=== PATIENT | male | born 1970 | race Caucasian/White ===

== ENCOUNTER 2020-02-04 15:40 | Emergency (ER) | payer OTHER, SELFPAY ==
--- NOTE | 2020-02-04 15:38 | ECG_ITS ---
APPROVED REPORT Exam: Resting ECG HR:78 bpm ECG Measurements Heart Rate 78 AXES IA 164 P 64 QRSd 102 QRS 53 QT 360 T 56 QTc 410 Conclusion Normal sinus rhythm Normal ECG Electronically signed by : Jc Al, 02/06/2020 21:50:47
[2020-02-04 15:41] VITALS: BP 151/99; PULSE 77; RESP 16; TEMP 36.7; O2SAT 98; BMI 23.0
--- NOTE | 2020-02-04 15:51 | HMH.EDCP ---
ED Disposition Clinical Impression: Atypical chest pain, Vertigo Disposition: Home, Self-Care Condition on Discharge: Good Additional Instructions: On further review patient reports chest pain began yesterday. However he is more certain about his dizziness. Upon further questioning patient does report dizziness with head turning vertically to the right as well as extension of the neck. He has had no further chest pain and has cardiac work-up is otherwise negative we will treat him for BPPV with meclizine have him follow-up with his PCP for further cardiac work-up as needed. Prescriptions: Meclizine HCl [Meclizine 25mg Tab] 25 mg PO Q8HP PRN #30 tab PRN Reason: dizziness/vertigo Prescription Printed - Critical Care Critical Care Time: No Attestation: On , the high probability of a clinically significant, sudden or life threatening deterioration of the following system(s) required my full and direct attention, intervention and personal management. The time I documented below is in addition to time spent performing reported procedures but includes the following listed in this critical care notation. Medical Decision Making - Medical Records Medical records reviewed: Yes: I reviewed the patient's medical records. - Hiro Inquiry Pt receiving controlled substance: No Vital Signs: 02/04/20 15:41 02/04/20 15:57 02/04/20 16:01 Temperature 98.1 F Temperature Source Oral Pulse Rate [Orthostatic Lying Left Radial] 82 Pulse Rate [Orthostatic Sitting Left Radial] 82 Pulse Rate [Orthostatic Standing Left Radial] 99 H Pulse Rate [Radial] 77 81 Respiratory Rate 16 20 Blood Pressure [Orthostatic Lying Left Arm] 122/82 Blood Pressure [Orthostatic Sitting Left Arm] 130/91 H Blood Pressure [Orthostatic Standing Left Arm] 134/81 Blood Pressure [Right Arm] 151/99 H 122/82 Blood Pressure Mean [Right Arm] 116 95 Blood Pressure Source [Right Arm] Automatic Cuff Blood Pressure Position [Right Arm] Sitting Sitting 02 Sat by Pulse Oximetry 98 93 L Oxygen Delivery Method Room Air - Lab Data Lab results reviewed: Yes: I reviewed the patient's lab results. Lab Results 02/04/20 15:40: WBC 5.7, RBC 4.26 L, Hgb 14.2, Hct 43.7, MCV 102.5 H, MCH 33.3 H, MCHC 32.5, RDW 12.1, Plt Count 209, MPV 7.0 L, Neut % (Auto) 55.7, Lymph % (Auto) 33.3, [place] % (Auto) 4.9, Eos % (Auto) 4.2, Baso % (Auto) 1.8, Neut # (Auto) 3.2, Lymph # (Auto) 1.9, [place] # (Auto) 0.3, Eos # (Auto) 0.2, Baso # (Auto) 0.1 02/04/20 15:40: Sodium 137, Potassium 4.0, Chloride 100, Carbon Dioxide 24, Anion Gap 17.0 H, BUN 8 L, Creatinine 0.60 L, Estimated Creat Clear 139, Estimated GFR 143, Est GFR ( Amer) 173, Glucose 100, Calcium 9.2, Troponin I < 0.01 02/04/20 15:40: SARS-CoV-2 IgG Ab (Rapid) Negative, SARS-CoV-2 IgM Ab (Rapid) Negative Result diagrams: 02/04/20 15:40 02/04/20 15:40 Orders (Tests/Meds): ED MEDICATIONS Generic Name Dose Route Start Last Admin Trade Name Freq PRN Reason Stop Dose Admin Meclizine HCl 25 mg 02/04/20 16:31 Meclizine 25mg Tablet PO 02/04/20 16:32 ONCE ONE Discontinued Medications Generic Name Dose Route Start Last Admin Trade Name Freq PRN Reason Stop Dose Admin Aspirin 324 mg 02/04/20 16:02 02/04/20 16:04 Aspirin 81mg Chewable Tablet PO 02/04/20 16:03 324 mg ONCE ONE Administration ORDERS Category Date Time Status XR chest portable Stat Exams 02/04/20 15:52 Taken Troponin I Q3H Lab 02/04/20 19:00 Ordered Troponin I Q3H Lab 02/04/20 22:00 Ordered - Radiology Data #1 Image(s): Chest Image Reviewed: Yes I reviewed the patient's radiology image Preliminary Findings: Normal/NAD - ECG Data Tracing #1 ECG initial impression time: 14:39 ECG normal with no acute: arrhythmias, ischemia, conduction abnormalities, chamber hypertrophy Normal Sinus Rhythm: Yes Chest Pain HPI - General Chief Complaint: Chest Pain Stated Complaint: Chest pain Ti
--- NOTE | 2020-02-04 15:52 | XR_ITS ---
PROCEDURE: XR CHEST PORTABLE CLINICAL HISTORY: CHEST PAIN COMPARISON: No exams were available for comparison FINDINGS: The cardiomediastinal silhouette and pulmonary vascularity are within normal limits. The lungs are clear without infiltrates, suspicious nodules, or pleural effusions. There monitor lines overlying the chest No acute bony abnormalities. IMPRESSION: No acute findings. Dictated by: Dr. Neil Goldstein MD 02/04/2020 17:00 Dr. Neil Goldstein MD in [place] 02/04/2020 17:00
[2020-02-04 15:57] VITALS: BP 122/82; PULSE 81; RESP 20; O2SAT 93
[2020-02-04 16:01] VITALS: BP 122/82; BP 130/91; BP 134/81; PULSE 82; PULSE 99
[2020-02-04 16:01] LABS: Basophils # 0.1 K/mm3 (0-0.2); Basophils % 1.8 % (0.1-2.0); Eosinophils # 0.2 K/mm3 (0.0-0.4); Eosinophils % 4.2 % (0.1-12.0); Hematocrit 43.7 % (42.0-52.0); Hemoglobin 14.2 g/dL (14.1-18.0); Lymphocytes # 1.9 K/mm3 (0.7-4.5); Lymphocytes % 33.3 % (10-50); Mean Corpuscular HGB Conc 32.5 g/dL (31.8-35.4); Mean Corpuscular Hemoglobin 33.3 pg (27.0-31.2); Mean Corpuscular Volume 102.5 fl (80-94); Monocytes # 0.3 K/mm3 (0.1-1.0); Monocytes % 4.9 % (1.7-9.3); Neutrophils # 3.2 K/mm3 (1.8-7.8); Neutrophils % 55.7 % (37.0-80.0); Platelet Count 209 K/mm3 (142-424); Red Blood Count 4.26 M/mm3 (4.60-6.20); Red Cell Distribution Width 12.1 % (11.5-17.5); White Blood Count 5.7 K/mm3 (4.8-10.8)
[2020-02-04 16:05] LABS: Blood Urea Nitrogen 8 mg/dl (9-20); Calcium 9.2 mg/dl (8.4-10.2); Carbon Dioxide 24 mmol/L (22.0-30.0); Chloride 100 mmol/L (98-107); Creatinine Clearance Estimated 139 mL/min (50-200); Estimated Glomerular Filt Rate 143 ml/min (>60); GFR (African American) 173 ML/MIN (>60); Glucose 100 mg/dl (74-100); Sodium 137 mmol/L (136-145)
[2020-02-04 16:17] LABS: Troponin I < 0.01 ng/ml (0.00-0.034)
[2020-02-04 16:23] LABS: Coronavirus 19 IgG Antibody Negative (Negative); Coronavirus 19 IgM Antibody Negative (Negative)
[2020-02-04 16:44] VITALS: BP 125/65; PULSE 78; RESP 16; TEMP 36.6; O2SAT 96
== END 2020-02-04 16:46 | disposition home or self-care (01) ==
LOC: ER 16:36
PROVIDERS: Emergency Provider Emergency Medicine
DX: R07.89 Other chest pain (principal); R42 Dizziness and giddiness; I10 Essential (primary) hypertension; F17.210 Nicotine dependence, cigarettes, uncomplicated
CPT/HCPCS: 71045; 80048; 84484; 85025; 86328; 93005; 99283

== ENCOUNTER 2023-12-20 19:45 | Inpatient (IN) | payer OTHER, SELFPAY ==
--- NOTE | 2023-12-20 20:19 | EXP.HP ---
History of Present Illness *Admission Date: 12/20/23 *Reason for visit:: chest pain *History of present illness: Mr. Mercedes is a pleasant 53-year-old male with history of CABG a year ago and previous MIs necessitating stenting (6 stents prior to CABG). He presented to [facility] on Thursday due to onset of chest pain. Concern for NSTEMI at that time. Troponin was initially 80, elevated to 123 with gradual decrease back down to 89. Stress test was performed at [facility] which showed small foci of ischemia. Due to lack of interventional cardiology, [facility] was consulted for transfer for interventional cardiology and definitive management. Patient was initiated on aspirin and Plavix. States has been having some intermittent chest pain since admission. EKG is not showing any ischemic changes or ST elevations. Medically managed with aspirin, Plavix, Lovenox. Transferred this evening for further care. Of note, occasionally will use cocaine. Last use within the past week. Also drinks regularly. Last drink evening. No signs of withdrawal. On time of arrival, he stable on room air. Denies any nausea or vomiting. No confusion or weakness. No active chest pain at this moment. [facility] Disclaimer: The information contained in this section may have been updated after the patient was seen, as this information can be updated by other users. Medical History Hypertension COPD (chronic obstructive pulmonary disease) Surgical History History of right heart catheterization (RHC) Social History Smoking Status: Current every day smoker tobacco type: cigarettes packs per day: 1 alcohol intake: current alcohol intake frequency: 3 or more drinks per day current occupational status: employed and other Travel in the last 8 weeks: None household members: other housing: other Other Medical History Have you received the Flu Vaccine for this season: No Have you received the Pneumonia Vaccine: No Review of Systems Review of Systems Review of systems (narrative): 14 point review of systems performed, pertinent positives and negatives as per HPI Meds Home Medications and Allergies Home Medications ?Medication ?Instructions ?Recorded ?Confirmed ?Type fluticasone fur. 100 mcg-umeclid 1 ea inhalation DAILY 12/20/23 12/20/23 History 62.5 mcg-vilant 25 mcg inhalat.powder (Trelegy Ellipta) losartan 100 1 tab PO DAILY 12/20/23 12/20/23 History mg-hydrochlorothiazide 12.5 mg tablet metoprolol succinate 25 mg 25 mg PO DAILY 12/20/23 12/20/23 History tablet,extended release 24 hr montelukast 10 mg tablet 10 mg PO DAILY 12/20/23 12/20/23 History New Prescriptions to Start Prescriptions: Allergies Allergy/AdvReac Type Severity Reaction Status Date / Time strawberry AdvReac Verified 02/04/20 15:49 Exam Constitutional Constitutional: no acute distress, average body habitus and cooperative *Routine HEENT Exam Head: Present normocephalic Eye: Present EOMI and PERRL ENT: Present mucous membranes moist *Routine Neck Exam Neck: Present supple; Absent lymphadenopathy Routine Chest/Breast/Axilla Exam Comments: Well-healed sternotomy scar *Routine Respiratory Exam Respiratory: Present CTA bilaterally; Absent rhonchi, wheezes or crackles *Routine Cardiovascular Exam Cardiovascular: Present RRR *Routine Abdominal Exam Abdominal: Present soft and normoactive bowel sounds; Absent tenderness *Routine Rectal Exam Rectal:: deferred *Routine Genitalia Exam Genitalia:: deferred *Routine Extremities Exam Extremities: Absent cyanosis, clubbing or edema Comments: Absent right upper arm, defect per report *Routine Skin Exam Skin: Present warm; Absent rash *Routine Neurological Exam Neurological: Present alert, oriented X3 and moving all extremities; Absent altered mental status Assessment and Plan *Assessment and plan (1) NSTEMI (non-ST elevated myocardial infarction): Status: Acute Category: Medical Code(s): I21.4 - Non-ST elevation (NSTEMI) myocardial infarction (2) CAD (coronary artery disease): Status: Acute Category: Medical Code(s): I25.10 - Atherosclerotic heart disease of [place] coronary artery without angina pectoris (3) Hx of CABG: Status: Acute Category: Surgical Code(s): Z95.1 - Presence of aortocoronary bypass graft (4) Alcohol dependence: Status: Acute Category: Medical Code(s): F10.20 - Alcohol dependence, uncomplicated (5) COPD (chronic obstructive pulmonary disease): Status: Acute Category: Medical Code(s): J44.9 - Chronic obstructive pulmonary disease, unspecified (6) History of cocaine use: Status: Acute Category: Medical Code(s): F14.91 - Cocaine use, unspecified, in remission Plan Mr. Mercedes a 53-year-old male with significant CAD, history of CABG a year ago, COPD, who presented with atypical chest pain and concern for NSTEMI to [facility] on Thursday. Case discussed with hospitalist from [facility], request transfer for definitive management of NSTEMI as they do not have interventional cardiology and patient had ischemic defect noted on stress test. Medicine agreed to admit for further management. Cardiology consulted for the morning. Problems addressed as follows: NSTEMI CAD History of CABG ([place]) -Patient on ALIZA inhibitor, HCTZ, metoprolol, daily aspirin only. Will continue aspirin 81 mg daily and Plavix 75 mg daily. Loaded with aspirin 324 and Plavix 300 mg on Thursday. Receiving Lovenox 1 mg/kg twice daily for anticoagulation. Will administer 1 more dose this evening, and hold in the morning pending heart cath and heparinization in the [facility]. - Reviewed patient's labs from [facility]. High-sensitivity troponin of 88. Kidney function normal with creatinine 0.8, BUN 12. LDL cholesterol elevated at 151. Troponin showed gradual increase to 123, have trended back down to 89. TSH normal at 1.34. White count normal at 5, hemoglobin 13. No signs of anemia. - EKG personally reviewed, presence of right bundle branch block. No signs of ischemia -Echo ordered for the morning -Further management pending cardiology evaluation. Monitor on continuous telemetry. -Resume metoprolol succinate 25 mg daily, re-evaluate daily need for ALIZA inhibitor versus ARB or ARNI - Kidney function normal with BUN 13, creatinine 0.8. Initial troponin here less than 0.01 Substance dependence Alcohol use disorder - UDS positive for cocaine and opiates at outside hospital. Alcohol level negative. States he drinks regularly, 6-12 beers a day with bourbon intermittently. No signs of withdrawal over the past 2 days but has been given Ativan regularly. States he does not have withdrawal symptoms and or never has. Will monitor with CIWA protocol. Ativan if needed and symptomatic. History of tobacco use disorder: Reports he currently vapes. History of COPD: Continue Trelegy 100 inhaler once daily. Stable on room air. Does not appear to be in exacerbation; continue Singulair 10 mg daily Full code Cardiac diet, n.p.o. at midnight Therapeutic Lovenox
[2023-12-20 20:32] VITALS: BMI 26.2
[2023-12-20 21:48] LABS: Basophils % 0.5 % (0.1-2.0); Eosinophils # 0.1 K/mm3 (0.0-0.4); Eosinophils % 2.8 % (0.1-12.0); Hematocrit 34.6 % (42.0-52.0); Hemoglobin 11.8 g/dL (14.1-18.0); Lymphocytes # 0.8 K/mm3 (0.7-4.5); Mean Corpuscular HGB Conc 34.1 g/dL (31.8-35.4); Mean Corpuscular Hemoglobin 34.1 pg (27.0-31.2); Mean Corpuscular Volume 99.9 fl (80-94); Monocytes # 0.3 K/mm3 (0.1-1.0); Monocytes % 5.7 % (1.7-9.3); Neutrophils # 3.3 K/mm3 (1.8-7.8); Platelet Count 141 K/mm3 (142-424); Red Blood Count 3.46 M/mm3 (4.60-6.20); Red Cell Distribution Width 13.2 % (11.5-17.5); White Blood Count 4.5 K/mm3 (4.8-10.8)
[2023-12-20 22:15] LABS: Alanine Aminotransferase 33 U/L (12-78); Albumin Level 3.5 g/dl (3.5-5.0); Albumin/Globulin Ratio 1.5 (1.1-1.8); Alkaline Phosphatase 37 U/L (38-126); Anion Gap 9.4 mEq/L (5-15); Aspartate Amino Transferase 41 U/L (17-59); Bilirubin,Total 0.4 mg/dl (0.2-1.3); Blood Urea Nitrogen 13 mg/dl (9-20); Calcium 8.7 mg/dl (8.4-10.2); Carbon Dioxide 24 mmol/L (22.0-30.0); Chloride 105 mmol/L (98-107); Creatinine Clearance Estimated 113 mL/min (50-200); Estimated Glomerular Filt Rate 101 ml/min (>60); GFR (African American) 122 ML/MIN (>60); Globulin 2.4 g/dL (1.3-3.2); Glucose 142 mg/dl (74-100); Potassium 3.4 mmoL/L (3.5-5.1); Sodium 135 mmol/L (136-145); Total Protein,Serum 5.9 g/dl (6.3-8.2)
[2023-12-20] MEDS: ENOXAPARIN 100MG/ML SYRINGE 75 MG SQ (22:35)
[2023-12-20 22:51] LABS: Troponin I < 0.01 ng/ml (0.00-0.034)
[2023-12-21] VITALS (39 sets, daily range): BP systolic 100–206; BP diastolic 68–132; PULSE 61–100; RESP 12–20; TEMP 36.4–36.9; O2SAT 96–100; BMI 26.3
--- NOTE | 2023-12-21 06:27 | PC.NURSE ---
Pt is A&O x4. Pt has rested well since admission. CIWA is 0. Pt has been NPO sine 0000. No acute changes this shift. Pt denies pain and needs
[2023-12-21 06:57] LABS: Basophils % 0.8 % (0.1-2.0); Eosinophils # 0.2 K/mm3 (0.0-0.4); Eosinophils % 3.9 % (0.1-12.0); Hematocrit 38.5 % (42.0-52.0); Lymphocytes # 0.9 K/mm3 (0.7-4.5); Lymphocytes % 17.6 % (10-50); Mean Corpuscular HGB Conc 34.9 g/dL (31.8-35.4); Mean Corpuscular Hemoglobin 33.4 pg (27.0-31.2); Mean Corpuscular Volume 95.5 fl (80-94); Mean Platelet Volume 8.1 fl (7.4-10.4); Monocytes # 0.4 K/mm3 (0.1-1.0); Monocytes % 7.2 % (1.7-9.3); Neutrophils # 3.5 K/mm3 (1.8-7.8); Neutrophils % 70.6 % (37.0-80.0); Platelet Count 150 K/mm3 (142-424); Red Blood Count 4.03 M/mm3 (4.60-6.20); Red Cell Distribution Width 13.2 % (11.5-17.5)
[2023-12-21 07:27] LABS: Albumin Level 3.5 g/dl (3.5-5.0); Chloride 101 mmol/L (98-107); Potassium 3.4 mmoL/L (3.5-5.1); Sodium 135 mmol/L (136-145)
[2023-12-21 07:30] LABS: Alanine Aminotransferase 24 U/L (12-78); Albumin/Globulin Ratio 1.5 (1.1-1.8); Alkaline Phosphatase 41 U/L (38-126); Anion Gap 8.4 mEq/L (5-15); Aspartate Amino Transferase 35 U/L (17-59); Bilirubin,Total 0.5 mg/dl (0.2-1.3); Blood Urea Nitrogen 11 mg/dl (9-20); Calcium 8.9 mg/dl (8.4-10.2); Carbon Dioxide 29 mmol/L (22.0-30.0); Creatinine Clearance Estimated 114 mL/min (50-200); Estimated Glomerular Filt Rate 101 ml/min (>60); GFR (African American) 122 ML/MIN (>60); Globulin 2.4 g/dL (1.3-3.2); Glucose 105 mg/dl (74-100); Total Protein,Serum 5.9 g/dl (6.3-8.2)
[2023-12-21 07:31] LABS: Magnesium 1.5 mg/dl (1.6-2.3)
[2023-12-21 07:42] LABS: Hemoglobin 13.4 g/dL (14.1-18.0)
--- NOTE | 2023-12-21 08:05 | HMH.PHAINT1 ---
Pharmacy Intervention Comments: Home medications verified using list from pharmacy.
[2023-12-21] MEDS: METOPROLOL SUCCINATE XL 25MG TABLET 25 MG PO (08:29)
[2023-12-21] MEDS: ASPIRIN EC 81MG TABLET 81 MG PO (08:29)
[2023-12-21] MEDS: CLOPIDOGREL 75MG TAB 75 MG PO (08:29)
--- NOTE | 2023-12-21 09:02 | P.CONCA_ITS ---
History of Present Illness History of Present Illness Consult date: 12/21/23 Requesting physician: E[facility] Fam Consult reason: chest pain Chief complaint: angina Additional Medical History:: 1. CAD A. CABG, 2022, with prior [place]'s and stenting B. NSTEMI, 12/18/2023 with elevated troponins at outside hospital with abnormal stress test 2. Hypertension 3. Drug and Alcohol Abuse A. cocaine use 4. Congenital right arm deformity 5. COPD History of present illness: Mr. Mercedes is a pleasant 53-year-old male with history of CABG a year ago and previous MIs necessitating stenting (6 stents prior to CABG). He presented to [facility] on Thursday due to onset of chest pain. Concern for NSTEMI at that time. Troponin was initially 80, elevated to 123 with gradual decrease back down to 89. Stress test was performed at [facility] which showed small foci of ischemia. Due to lack of interventional cardiology, [facility] was consulted for transfer for interventional cardiology and definitive management. Patient was initiated on aspirin and Plavix. States has been having some intermittent chest pain since a dmission. EKG is not showing any ischemic changes or ST elevations. Medically managed with aspirin, Plavix, Lovenox. Transferred this evening for further care. Of note, occasionally will use cocaine. Last use within the past week. Also drinks regularly. Last drink evening. No signs of withdrawal. On time of arrival, he stable on room air. Denies any nausea or vomiting. No confusion or weakness. No active chest pain at this moment. The above per Dr. Herbert Events as noted above confirmed with patient. Somewhat elusive about drug use but does admit to cocaine use approximately once per week. He does drink daily. He maintains compliance with his medications. Discussed recommendation of left heart catheterization in light of elevated troponins and abnormal stress test in the setting of unstable angina. Patient agrees to proceed. [facility] Disclaimer: The information contained in this section may have been updated after the patient was seen, as this information can be updated by other users. Medical History Hypertension COPD (chronic obstructive pulmonary disease) Surgical History History of right heart catheterization (RHC) Social History Smoking Status: Current every day smoker tobacco type: cigarettes packs per day: 1 alcohol intake: current alcohol intake frequency: 3 or more drinks per day current occupational status: employed and other Travel in the last 8 weeks: None household members: other housing: other Review of Systems Review of Systems Review of systems:: pertinent systems reviewed and negative unless documented below *Cardiovascular Cardiovascular: Reports chest pain, Reports chest pain with activity and Reports dyspnea on exertion *Respiratory Respiratory: Reports dyspnea on exertion Exam Data for Last 24 hours Vital signs and Labs for Last 24 Hours: Temp Pulse Resp BP Pulse Ox O2 Del Method 98.4 F 66 16 164/80 H 96 Room Air 12/21/23 04:00 12/21/23 04:00 12/21/23 04:00 12/21/23 04:00 12/21/23 04:00 12/21/23 06:33 Laboratory Results - last 24 hr 12/20/23 21:30: WBC 4.5 L, RBC 3.46 L, Hgb 11.8 L, Hct 34.6 L, MCV 99.9 H, MCH 34.1 H, MCHC 34.1, RDW 13.2, Plt Count 141 L, MPV 8.0, Neut % (Auto) 74.0, Lymph % (Auto) 17.0, [place] % (Auto) 5.7, Eos % (Auto) 2.8, Baso % (Auto) 0.5, Neut # (Auto) 3.3, Lymph # (Auto) 0.8, [place] # (Auto) 0.3, Eos # (Auto) 0.1, Baso # (Auto) 0.0, Sodium 135 L, Potassium 3.4 L, Chloride 105, Carbon Dioxide 24, Anion Gap 9.4, BUN 13, Creatinine 0.80, Estimated Creat Clear 113, Estimated GFR 101, Est GFR ( Amer) 122, Glucose 142 H, Calcium 8.7, Total Bilirubin 0.4, AST 41, ALT 33, Alkaline Phosphatase 37 L, Troponin I < 0.01, Total Protein 5.9 L, Albumin 3.5, Globulin 2.4, Albumin/Globulin Ratio 1.5 12/21/23 06:24: WBC 5.0, RBC 4.03 L, Hgb 13.4 L D, Hct 38.5 L, MCV 95.5 H, MCH 33.4 H, MCHC 34.9, RDW 13.2, Plt Count 150, MPV 8.1, Neut % (Auto) 70.6, Lymph % (Auto) 17.6, [place] % (Auto) 7.2, Eos % (Auto) 3.9, Baso % (Auto) 0.8, Neut # (Auto) 3.5, Lymph # (Auto) 0.9, [place] # (Auto) 0.4, Eos # (Auto) 0.2, Baso # (Auto) 0.0, Sodium 135 L, Potassium 3.4 L, Chloride 101, Carbon Dioxide 29, Anion Gap 8.4, BUN 11, Creatinine 0.80, Estimated Creat Clear 114, Estimated GFR 101, Est GFR ( Amer) 122, Glucose 105 H D, Calcium 8.9, Magnesium 1.5 L, Total Bilirubin 0.5, AST 35, ALT 24 D, Alkaline Phosphatase 41, Total Protein 5.9 L, Albumin 3.5, Globulin 2.4, Albumin/Globulin Ratio 1.5 I & O for Last 24 hours: Intake & Output 12/18/23 12/19/23 12/20/23 12/21/23 11:59 11:59 11:59 11:59 Intake Total 360 / 360 Output Total 0 / 0 Balance 360 / 360 Weight 167 lb 12.8 oz Constitutional Constitutional: no acute distress *Routine Respiratory Exam Respiratory: Present CTA bilaterally; Absent rhonchi or wheezes *Routine Cardiovascular Exam Cardiovascular: Present RRR; Absent murmur, gallop or rubs *Routine Neurological Exam Neurological: Present alert, oriented X3 and CN II-XII intact Meds Home Medications and Allergies Home Medications ?Medication ?Instructions ?Recorded ?Confirmed ?Type fluticasone fur. 100 mcg-umeclid 1 ea inhalation DAILY 12/20/23 12/20/23 History 62.5 mcg-vilant 25 mcg inhalat.powder (Trelegy Ellipta) losartan 100 1 tab PO DAILY 12/20/23 12/20/23 History mg-hydrochlorothiazide 12.5 mg tablet metoprolol succinate 25 mg 25 mg PO DAILY 12/20/23 12/20/23 History tablet,extended release 24 hr montelukast 10 mg tablet 10 mg PO DAILY 12/20/23 12/20/23 History albuterol sulfate 2.5 mg/3 mL 2.5 mg inhalation Q6H PRN Wheezing 12/21/23 12/21/23 History (0.083 %) solution for nebulization albuterol sulfate 90 mcg/actuation 2 puff inhalation Q4H PRN Wheezing 12/21/23 12/21/23 History aerosol inhaler (Ventolin HFA) aspirin 81 mg chewable tablet 81 mg PO DAILY 12/21/23 12/21/23 History levothyroxine 100 mcg tablet 100 mcg PO DAILY 12/21/23 12/21/23 History New Prescriptions to Start Prescriptions: Allergies Allergy/AdvReac Type Severity Reaction Status Date / Time strawberry AdvReac Verified 02/04/20 15:49 Assessment and Plan *Assessment and plan (1) NSTEMI (non-ST elevated myocardial infarction): Status: Acute Category: Medical Code(s): I21.4 - Non-ST elevation (NSTEMI) myocardial infarction (2) CAD (coronary artery disease): Status: Acute Qualifiers: Associated angina: with unstable angina Coronary Disease-Associated Artery/Lesion type: unspecified vessel or lesion type [place] vs. transplanted heart: [place] heart Qualified Code(s): I25.110 - Atherosclerotic heart disease of [place] coronary artery with unstable angina pectoris Category: Medical Code(s): I25.10 - Atherosclerotic heart disease of [place] coronary artery without angina pectoris (3) Hx of CABG: Status: Acute Category: Surgical Code(s): Z95.1 - Presence of aortocoronary bypass graft (4) Alcohol dependence: Status: Acute Qualifiers: Complication of substance-induced condition: uncomplicated Substance use status: with intoxication Qualified Code(s): F10.220 - Alcohol dependence with intoxication, uncomplicated Category: Medical Code(s): F10.20 - Alcohol dependence, uncomplicated (5) COPD (chronic obstructive pulmonary disease): Status: Acute Qualifiers: COPD type: unspecified COPD Qualified Code(s): J44.9 - Chronic obstructive pulmonary disease, unspecified Category: Medical Code(s): J44.9 - Chronic obstructive pulmonary disease, unspecified (6) History of cocaine use: Status: Acute Category: Medical Code(s): F14.91 - Cocaine use, unspecified, in remission Plan 1. Non-STEMI with elevated troponins at outlying facility (max troponin 123) and abnormal stress test with evidence of ischemia -EKG with early repolarization abnormalities in the inferolateral leads and questionable LVH -Started on Plavix in addition to home aspirin dose -Home metoprolol dose continued -Recommend proceeding with left heart catheterization with grafts 2. Dyslipidemia -Continue statin therapy -LDL 151 on 12/18/2023 with HDL of 111, triglycerides 61 and total cholesterol 274 3. Alcohol and drug abuse with alcohol level 299 on admission on 12/17 (reference range 0-10) -Cessation recommended 4. History of tobacco use now vapes -COPD 5. Mild macrocytic anemia with hemoglobin 13.4 this morning -Check B12 and folate 6. Hypomagnesemia -Add replacement Left heart catheterization today Echocardiogram today Further recommendations to follow [facility] showed loss of SVG to Circ/OM. RODRI to Circ and OM performed. Patent MOE to LAD, SVG to RCA with preserved EF. Echo shows Normal LVEF with mild RV dilation and dysfunction. Mild LAE with mild MR. If pt insists on discharge this evening, then follow up in one week. Home meds: Aspirin 81 mg daily Plavix 75 mg daily Losartan/HCTZ 100-12.5 mg daily Metoprolol succinate 25 mg daily Atorvastatin 40 mg daily
[2023-12-21 10:13] LABS: Chloride 101 mmol/L (98-107)
[2023-12-21 10:14] LABS: Potassium 3.8 mmoL/L (3.5-5.1); Sodium 133 mmol/L (136-145)
[2023-12-21 10:16] LABS: Blood Urea Nitrogen 10 mg/dl (9-20); Creatinine Clearance Estimated 130 mL/min (50-200); Estimated Glomerular Filt Rate 118 ml/min (>60); GFR (African American) 142 ML/MIN (>60)
[2023-12-21 10:17] LABS: Anion Gap 9.8 mEq/L (5-15); Carbon Dioxide 26 mmol/L (22.0-30.0); Glucose 101 mg/dl (74-100)
[2023-12-21] MEDS: POTASSIUM CHLORIDE 20MEQ TAB 40 MEQ PO ×2 (10:30→13:09)
[2023-12-21] MEDS: MAGNESIUM SULFATE IN WATER 2 GM/50 ML PIGGYBACK IV ×2 (10:30→11:27)
[2023-12-21 11:12] LABS: Vitamin B12 270 pg/mL (239-931)
[2023-12-21] MEDS: FLUTICASONE/UMECLIDIN/VILANTER 100/62.5/25MCG INHALER 1 PUFF IH (11:33)
--- NOTE | 2023-12-21 13:35 | IR_ITS ---
APPROVED REPORT Patient Location: Inpatient Program Management Manager: WENDY Shaw RT (R) PROCEDURES Left heart catheterization Left ventriculogram Selective coronary angiogram Selective engagement left internal mammary artery Selective engagement of the saphenous vein graft to the circumflex artery Selective engagement of the saphenous vein graft to the right coronary Drug-eluting stent deployment to the circumflex artery Drug-eluting stent deployment to the first obtuse marginal artery INDICATION Acute non-ST elevation myocardial infarction, History of coronary bypass surgery, Coronary artery disease, Interval loss of the saphenous vein graft to circumflex artery, Informed consent was obtained prior to the procedure. COMPLICATIONS None Estimated Blood Loss: Less than 10 mls TECHNIQUE One percent lidocaine used to anesthetize the right groin. The right femoral artery was accessed via the Seldinger technique and a 5 Sammarinese sheath was placed in the right femoral artery. A JL 4, JR4 catheter were used to perform left heart catheterization, left ventriculogram selective coronary angiography as well as selective engagement of the 2 vein grafts and the left internal mammary artery. At the end of the diagnostic angiogram therapeutic Was administered giving a therapeutic ACT and the 5 Sammarinese sheath was exchanged for a 6 Sammarinese sheath. An EBU 3.5 guide catheter was placed in left main artery followed by Choice PT extra-support wire placed down the circumflex artery. A 3 mm x 38 mm [place] frontier stent was deployed in the ostial proximal segment at 24 raquel with the assistance of a guide liner. Following this a 2.75 x 22 mm [place] frontier stent was placed distal to the for stent yet still overlapping and deployed at 18 raquel. The balloon was brought back and deployed at 24 raquel to post dilate and mesh the 2 stents. A 3.5 x 12 mm noncompliant balloon was then deployed at 24 raquel in the ostial proximal and midportion of the stent in order to post dilate. Excellent angiograph results were obtained. After achieving excellent angiograph results and FREDY-3 flow being present before and after the procedure the apparatus was removed the groin is reprepped closure change sheath was removed and hemostasis was achieved using Perclose device patient was transferred to the postop holding in stable condition ANGIOGRAPHIC RESULTS The left main artery Normal The left anterior descending artery Is proximally occluded The circumflex artery Is a large-caliber vessel with a proximal 60% mid vessel 80 and 90% concentric stenosis which extends into the large first obtuse marginal artery. The vein graft was identified with no competitive flow in the vein graft was occluded The right coronary artery Proximally occluded The DIA ventriculogram reveals Preserved at 55% The left ventricular end-diastolic pressure 10 mmHg MOE to LAD widely patent Saphenous to right coronary artery patent Saphenous vein graft circumflex artery ostially occluded IMPRESSION Interval loss of saphenous vein graft to circumflex artery/obtuse marginal artery Successful stenting of the proximal and mid circumflex artery critical disease reduced to 0% with 1 drug-eluting stent Successful stenting of the first obtuse marginal artery critical disease reduced to 0% with 1 drug-eluting stent Patent MOE to LAD Patent saphenous vein graft to right coronary artery Preserved ejection fraction Normal LVEDP PLAN 1. Dual antiplatelet therapy 2. Cardiac rehabilitation 3. Avoidance of tobacco products 4. Risk factor modification 5. LDL less than 55 to be achieved with high intensity statin Electronically signed by : Magan Chaudhari MD 12/21/2023 15:43:15
[2023-12-21] MEDS: diphenhydrAMINE 50MG/ML VIAL 50 MG IV (14:48)
[2023-12-21] MEDS: HEPARIN 1,000 UNITS/500ML NS (CATH LAB) 3000 UNIT IV (14:49)
[2023-12-21] MEDS: LIDOCAINE 1% 10ML MDV 20 ML IJ (14:49)
[2023-12-21] MEDS: 0.9 % SODIUM CHLORIDE 500 ML 25 ML IV (14:49)
[2023-12-21] MEDS: MIDAZOLAM HCL 1MG/1ML 5ML VIAL 1 MG IV (14:50)
[2023-12-21] MEDS: FENTANYL 100MCG/2ML VIAL 25 MCG IV (14:50)
[2023-12-21] MEDS: HEPARIN 1,000 UNITS/ML 10ML VIAL (CATH LAB) 10000 UNIT IV (15:35)
[2023-12-21] MEDS: PROPOFOL 10MG/ML 20ML VIAL 240 MG IV (15:44)
[2023-12-21] MEDS: LABETALOL 20MG/4ML SYRINGE 20 MG IV ×2 (15:48→17:11)
[2023-12-21] MEDS: IOPAMIDOL-370 (76%);100ML BOTTLE 120 ML IV (15:48)
[2023-12-21] MEDS: CLOPIDOGREL 300MG TABLET 600 MG PO (15:49)
[2023-12-21] MEDS: LORazepam 2MG/ML VIAL 1 MG IV (16:47)
--- NOTE | 2023-12-21 17:00 | ECG_ITS ---
APPROVED REPORT Exam: Resting ECG HR:67 bpm ECG Measurements Heart Rate 67 AXES OH 183 P 67 QRSd 148 QRS 92 QT 408 T 67 QTc 424 Conclusion SINUS RHYTHM Left atrial abnormality RIGHT BUNDLE BRANCH BLOCK [120+ ms QRS DURATION, UPRIGHT V1, 40+ ms S IN I/aVL/V4/V5/V6] ABNORMAL ECG UNCONFIRMED REPORT Electronically signed by : Jc Al MD 12/23/2023 08:16:17
[2023-12-21] MEDS: NITROGLYCERIN 0.4MG SL TABLET 0.4 MG SL (17:26)
[2023-12-21] MEDS: NITROGLYCERIN IN 5 % DEXTROSE 250 ML 1.5 MG IV ×2 (17:30→22:00)
--- NOTE | 2023-12-21 17:59 | PC.NURSE ---
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 Asked MD Fam for prn pain meds. Ativan 1mg ordered and given with no relief. Luh Chaudhari paged at 1652 and stated to get a stat EKG and give 20mg of iv labetalol. Med given at 1711. BP 206/112. Cristel on phone with jenny. ordered one time SL nitro and it was given at 1717. He also ordered a nitro gtt. GTT was started at 1730. pt made ICU. Pt still c/o chest pain 10/10. GTT being titrated for chest pain and BP.
[2023-12-21] MEDS: HYDROMORPHONE 2MG/ML SYRINGE 2 MG IM (18:17)
--- NOTE | 2023-12-21 18:44 | PC.NURSE ---
AFTER PRN DILAUDID PT NO RATES HIS CHEST PAIN A 2/10 AND IS GROGGY AND PLEASANT. NITRO GTT TITRATED APPROPRIATE.
--- NOTE | 2023-12-21 19:45 | PC.NURSE ---
Verbal order from Dr. Fam for SL Nitro to be used if patient has chest pain again and Dilaudid is not working.
--- NOTE | 2023-12-21 21:22 | CA_ITS ---
APPROVED REPORT EXAM: Comprehensive 2D, Doppler, and color-flow Echocardiogram Social Work Lecturer: Kylah Borja CRT Ht: 5 ft 7 in Wt: 167lbs BSA: 1.87 BP: 134/81 mmHg Indications: COPD, Non STEMI, Hypertension/HDD, CABG 2022, Stents, smoker, cocaine use, alcohol use 2D Dimensions LA Volume 36.50 mL LA Volume Index 19.00 mL/m2 (M/F) 16-34 M-Mode Dimensions RVDd 3.22 cm (0.9-2.6) LA Diam 3.98 cm (1.9-4.0) LVDd 4.80 cm (3.5-5.7) LVDs 2.83 cm (3.5-5.7) IVSd 1.22 cm (0.6-1.1) PWd 1.15 cm (0.6-1.1) EF (Teich) 71.80% FS 41.00% EDV (Teich) 107.50 mL TAPSE 1.15 (<1.7) ESV (Teich) 30.30 mL LV Diastology E Decel Time 150 (160-240 msec) E/A Ratio 1.53 MED A' 11.00 cm/s LAT A' 11.20 cm/s Aortic Valve AO Peak GR. 8.40 mmHg Mitral Valve MV E Max [place]hat. 94.0 (40-130 cm/s) MV A Velocity 62.0 (40-130 cm/s) E/A Ratio 1.53 MV PHT 44.0 ms Pulmonary Valve PV Peak Velocity 98.0 (50-150 cm/s) Tricuspid Valve TR P. Velocity 144.00 cm/s RAP Estimate 10.00 mmHg RVSP 18.30 mmHg Left Ventricle The left ventricle is normal size. The left ventricular systolic function is normal. The left ventricular ejection fraction is within the normal range. There is increased LV wall thickness. There is normal LV segmental wall motion. The left ventricular diastolic function is normal. LVEF is 55%. Right Ventricle Right ventricle is mildly dilated. Right ventricle is mildly hypokinetic. Atria The left atrium is mildly dilated. The right atrium size is normal. There is no Doppler evidence of interatrial shunt. Aortic Valve The aortic valve is mildly thickened. There is no aortic valvular stenosis. No aortic regurgitation is present. Mitral Valve The mitral valve is normal in structure. No evidence of mitral valve stenosis. Mild mitral regurgitation. Tricuspid Valve The tricuspid valve leaflets are thin and pliable. Trace tricuspid regurgitation. There is insufficient TR jet to estimate RVSP. Pulmonic Valve The pulmonary valve is normal in structure. Trace pulmonic regurgitation. Great Vessels The aortic root is normal in size. The ascending aorta is normal in size. IVC is normal in size and collapses >50% with inspiration. Pericardium There is no pericardial effusion. Other Information Study Quality: Fair Conclusion Normal LV systolic function. Mildly dilated RV with mild reduction in RV function. Mild LA dilation. Mild MR. Electronically signed by : Nicki Hammer MD 12/21/2023 12:05:47
--- NOTE | 2023-12-21 23:41 | P.PN_ITS ---
Subjective *Date: 12/21/23 *Time: 23:41 Interval history: Patient complained of chest pain after LHC which resolved with nitro. No other complains. Exam Data for Last 24 hours Vital signs and Labs for Last 24 Hours: Temp Pulse Resp BP Pulse Ox O2 Del Method 98.2 F 68 12 128/85 96 Room Air 12/21/23 20:00 12/21/23 23:00 12/21/23 23:00 12/21/23 23:00 12/21/23 23:00 12/21/23 23:00 Laboratory Results - last 24 hr 12/21/23 06:24: WBC 5.0, RBC 4.03 L, Hgb 13.4 L D, Hct 38.5 L, MCV 95.5 H, MCH 33.4 H, MCHC 34.9, RDW 13.2, Plt Count 150, MPV 8.1, Neut % (Auto) 70.6, Lymph % (Auto) 17.6, [place] % (Auto) 7.2, Eos % (Auto) 3.9, Baso % (Auto) 0.8, Neut # (Auto) 3.5, Lymph # (Auto) 0.9, [place] # (Auto) 0.4, Eos # (Auto) 0.2, Baso # (Auto) 0.0, Sodium 135 L, Potassium 3.4 L, Chloride 101, Carbon Dioxide 29, Anion Gap 8.4, BUN 11, Creatinine 0.80, Estimated Creat Clear 114, Estimated GFR 101, Est GFR ( Amer) 122, Glucose 105 H D, Calcium 8.9, Magnesium 1.5 L, Total Bilirubin 0.5, AST 35, ALT 24 D, Alkaline Phosphatase 41, Total Protein 5.9 L, Albumin 3.5, Globulin 2.4, Albumin/Globulin Ratio 1.5, Vitamin B12 270, Folate 7.80 12/21/23 10:00: Sodium 133 L, Potassium 3.8, Chloride 101, Carbon Dioxide 26, Anion Gap 9.8, BUN 10, Creatinine 0.70, Estimated Creat Clear 130, Estimated GFR 118, Est GFR ( Amer) 142, Glucose 101 H, Calcium 9.0 I & O for Last 24 hours: Intake & Output 12/18/23 12/19/23 12/20/23 12/21/23 23:59 23:59 23:59 23:59 Intake Total 664.617 / 664.617 Output Total 0 / 0 Balance 664.617 / 664.617 Weight 75.977 kg 76.113 kg Constitutional Constitutional: no acute distress *Routine HEENT Exam Head: Present normocephalic Eye: Present EOMI and PERRL ENT: Present mucous membranes moist *Routine Neck Exam Neck: Present supple; Absent lymphadenopathy *Routine Respiratory Exam Respiratory: Present CTA bilaterally *Routine Cardiovascular Exam Cardiovascular: Present RRR *Routine Abdominal Exam Abdominal: Present soft and normoactive bowel sounds; Absent tenderness *Routine Extremities Exam Extremities: Absent cyanosis, clubbing or edema *Routine Skin Exam Skin: Present warm; Absent rash *Routine Neurological Exam Neurological: Present alert and oriented X3 Assessment and Plan *Assessment and plan (1) NSTEMI (non-ST elevated myocardial infarction): Status: Acute Category: Medical Code(s): I21.4 - Non-ST elevation (NSTEMI) myocardial infarction (2) CAD (coronary artery disease): Status: Acute Qualifiers: Coronary Disease-Associated Artery/Lesion type: unspecified vessel or lesion type [place] vs. transplanted heart: [place] heart Associated angina: with unstable angina Qualified Code(s): I25.110 - Atherosclerotic heart disease of [place] coronary artery with unstable angina pectoris Category: Medical Code(s): I25.10 - Atherosclerotic heart disease of [place] coronary artery without angina pectoris (3) Hx of CABG: Status: Acute Category: Surgical Code(s): Z95.1 - Presence of aortocoronary bypass graft (4) Alcohol dependence: Status: Acute Qualifiers: Substance use status: with intoxication Complication of substance- induced condition: uncomplicated Qualified Code(s): F10.220 - Alcohol dependence with intoxication, uncomplicated Category: Medical Code(s): F10.20 - Alcohol dependence, uncomplicated (5) COPD (chronic obstructive pulmonary disease): Status: Acute Qualifiers: COPD type: unspecified COPD Qualified Code(s): J44.9 - Chronic obstructive pulmonary disease, unspecified Category: Medical Code(s): J44.9 - Chronic obstructive pulmonary disease, unspecified (6) History of cocaine use: Status: Acute Category: Medical Code(s): F14.91 - Cocaine use, unspecified, in remission Plan Mr. Gramercy a 53-year-old male with significant CAD, history of CABG a year ago, COPD, who presented with atypical chest pain and concern for NSTEMI to [facility] on Thursday. Case discussed with hospitalist from [facility], request transfer for definitive management of NSTEMI as they do not have interventional cardiology and patient had ischemic defect noted on stress test. Medicine agreed to admit for further management. Cardiology consulted for the morning. Problems addressed as follows: NSTEMI CAD History of CABG (Thrall Jon) -Patient on ALIZA inhibitor, HCTZ, metoprolol, daily aspirin only. Will continue aspirin 81 mg daily and Plavix 75 mg daily. ' - S/p PCI 2 stents to LCx and OM. - Echo shows Normal LVEF with mild RV dilation and dysfunction. Mild LAE with mild MR. -Continue metoprolol succinate 25 mg daily, re-evaluate daily need for ALIZA inhib itor versus ARB or ARNI - Patient endorsed significant midsternal chest pain after [facility] s/p 2 stents today. Repeat EKG did not show anything acute, chronic right bundle ni block. Spoke with Dr. Chaudhari, he said he had to dilate and artery significantly due to calcification and patient is likely feeling pain from there. He recommended nitro drip for chest pain, patient moved to ICU. Weaned off nitro drip in the evening. Can be discharged tomorrow if stable. Substance dependence Alcohol use disorder - UDS positive for cocaine and opiates at outside hospital. Alcohol level negative. States he drinks regularly, 6-12 beers a day with bourbon intermittently. No signs of withdrawal over the past 2 days but has been given Ativan regularly. States he does not have withdrawal symptoms and or never has. Will monitor with CIWA protocol. Ativan if needed and symptomatic. History of tobacco use disorder: Reports he currently vapes. History of COPD: Continue Trelegy 100 inhaler once daily. Stable on room air. Does not appear to be in exacerbation; continue Singulair 10 mg daily Full code Cardiac diet, n.p.o. at midnight Therapeutic Lovenox
[2023-12-22] VITALS (15 sets, daily range): BP systolic 129–160; BP diastolic 80–95; PULSE 60–87; RESP 12–20; TEMP 36.6–36.9; O2SAT 94–99; BMI 25.5
--- NOTE | 2023-12-22 04:52 | PC.NURSE ---
Patient has rested well throughout shift. He was initially titrated off of his nitro gtt; however, became hypotensive with chest pain, so Nitro started back per MAY. Patient tolerated PO prior to midnight, and has sense been made NPO per cardiology orders. VSS, NAD otherwise.
[2023-12-22] MEDS: FLUTICASONE/UMECLIDIN/VILANTER 100/62.5/25MCG INHALER 1 PUFF IH (05:54)
[2023-12-22 06:53] LABS: Basophils % 0.6 % (0.1-2.0); Eosinophils # 0.2 K/mm3 (0.0-0.4); Eosinophils % 3.2 % (0.1-12.0); Hematocrit 40.5 % (42.0-52.0); Hemoglobin 13.6 g/dL (14.1-18.0); Lymphocytes # 1.1 K/mm3 (0.7-4.5); Lymphocytes % 15.4 % (10-50); Mean Corpuscular HGB Conc 33.6 g/dL (31.8-35.4); Mean Corpuscular Volume 98.2 fl (80-94); Mean Platelet Volume 7.8 fl (7.4-10.4); Monocytes # 0.4 K/mm3 (0.1-1.0); Neutrophils # 5.3 K/mm3 (1.8-7.8); Neutrophils % 74.8 % (37.0-80.0); Platelet Count 156 K/mm3 (142-424); Red Blood Count 4.13 M/mm3 (4.60-6.20); Red Cell Distribution Width 13.3 % (11.5-17.5); White Blood Count 7.1 K/mm3 (4.8-10.8)
[2023-12-22 06:59] LABS: Albumin Level 3.9 g/dl (3.5-5.0); Chloride 99 mmol/L (98-107)
[2023-12-22 07:00] LABS: Potassium 4.1 mmoL/L (3.5-5.1); Sodium 133 mmol/L (136-145)
[2023-12-22 07:02] LABS: Alanine Aminotransferase 27 U/L (12-78); Albumin/Globulin Ratio 1.5 (1.1-1.8); Anion Gap 12.1 mEq/L (5-15); Aspartate Amino Transferase 53 U/L (17-59); Blood Urea Nitrogen 10 mg/dl (9-20); Carbon Dioxide 26 mmol/L (22.0-30.0); Creatinine Clearance Estimated 126 mL/min (50-200); Estimated Glomerular Filt Rate 118 ml/min (>60); GFR (African American) 142 ML/MIN (>60); Globulin 2.6 g/dL (1.3-3.2); Total Protein,Serum 6.5 g/dl (6.3-8.2)
[2023-12-22 07:03] LABS: Alkaline Phosphatase 46 U/L (38-126); Bilirubin,Total 0.5 mg/dl (0.2-1.3); Calcium 9.3 mg/dl (8.4-10.2); Glucose 100 mg/dl (74-100); Magnesium 1.8 mg/dl (1.6-2.3)
--- NOTE | 2023-12-22 08:17 | EXP.CARD.PN ---
Subjective Subjective Date: 12/22/23 Time: 08:19 Principal diagnosis: angina Interval history: 53-year-old white male in bed in no acute distress. Some discomfort at the right groin site due to catheter insertion for the cardiac cath. Site looks good with some bruising noted. No abdominal discomfort. Patient started on IV nitroglycerin last evening due to coronary artery spasm related to the procedure. Symptoms resolved with IV nitroglycerin. Exam Data for Last 24 hours Vital signs and Labs for Last 24 Hours: Temp Pulse Resp BP Pulse Ox O2 Del Method 98.4 F 73 17 149/94 H 98 Room Air 12/22/23 07:54 12/22/23 07:54 12/22/23 07:54 12/22/23 07:54 12/22/23 07:54 12/22/23 07:54 Laboratory Results - last 24 hr 12/21/23 06:24: Vitamin B12 270, Folate 7.80 12/21/23 10:00: Sodium 133 L, Potassium 3.8, Chloride 101, Carbon Dioxide 26, Anion Gap 9.8, BUN 10, Creatinine 0.70, Estimated Creat Clear 130, Estimated GFR 118, Est GFR ( Amer) 142, Glucose 101 H, Calcium 9.0 12/22/23 05:31: WBC 7.1 D, RBC 4.13 L, Hgb 13.6 L, Hct 40.5 L, MCV 98.2 H, MCH 33.0 H, MCHC 33.6, RDW 13.3, Plt Count 156, MPV 7.8, Neut % (Auto) 74.8, Lymph % (Auto) 15.4, [place] % (Auto) 6.0, Eos % (Auto) 3.2, Baso % (Auto) 0.6, Neut # (Auto) 5.3, Lymph # (Auto) 1.1, [place] # (Auto) 0.4, Eos # (Auto) 0.2, Baso # (Auto) 0.0, Sodium 133 L, Potassium 4.1, Chloride 99, Carbon Dioxide 26, Anion Gap 12.1, BUN 10, Creatinine 0.70, Estimated Creat Clear 126, Estimated GFR 118, Est GFR ( Amer) 142, Glucose 100, Calcium 9.3, Magnesium 1.8 D, Total Bilirubin 0.5, AST 53 D, ALT 27, Alkaline Phosphatase 46, Total Protein 6.5, Albumin 3.9 D, Globulin 2.6, Albumin/Globulin Ratio 1.5 I & O for Last 24 hours: Intake & Output 12/19/23 12/20/23 12/21/23 12/22/23 11:59 11:59 11:59 11:59 Intake Total 360 / 360 513.075 / 513.075 Output Total 0 / 0 1250 / 1250 Balance 360 / 360 -736.925 / -736.925 Weight 167 lb 12.8 oz 162 lb 12.8 oz Constitutional Constitutional: no acute distress *Routine Respiratory Exam Respiratory: Present CTA bilaterally *Routine Cardiovascular Exam Cardiovascular: Present RRR *Routine Extremities Exam Extremities: Absent edema *Routine Neurological Exam Neurological: Present alert, oriented X3 and CN II-XII intact Progress Note: A&P Assessment and plan (1) NSTEMI (non-ST elevated myocardial infarction): Status: Acute (2) CAD (coronary artery disease): Status: Acute (3) Hx of CABG: Status: Acute (4) Alcohol dependence: Status: Acute (5) COPD (chronic obstructive pulmonary disease): Status: Acute (6) History of cocaine use: Status: Acute Assessment and Plan Assessment and Plan for All Diagnoses:: 1. Non-STEMI with elevated troponins at outlying facility (max troponin 123) and abnormal stress test with evidence of ischemia -EKG with early repolarization abnormalities in the inferolateral leads and questionable LVH -Started on Plavix in addition to home aspirin dose -Home metoprolol dose continued -[facility] with loss of SVG to OM. Subsequent RODRI to OM and circumflex arteries. -Add irbesartan 150 mg daily -Add isosorbide mononitrate 30 mg daily and wean off IV nitroglycerin for coronary artery spasm 2. Dyslipidemia -LDL 151 on 12/18/2023 with HDL of 111, triglycerides 61 and total cholesterol 274 -Start atorvastatin 40 mg daily 3. Alcohol and drug abuse with alcohol level 299 on admission on 12/17 (reference range 0-10) -Cessation recommended 4. History of tobacco use now vapes -COPD 5. Mild macrocytic anemia with hemoglobin 13.4 this morning -B12 and folate levels normal 6. Hypomagnesemia -Status post magnesium replacement with subsequent level improved to 1.8 (within normal limits) 7. Hypertension -Controlled on combo of irbesartan/HCTZ and metoprolol -Echocardiogram this admission, normal EF with mild RV dilatation and reduction in function. Mild left atrial dilatation and mild MR. Clinically stable from a cardiac standpoint for discharge home. Home medication recommendations: Aspirin 81 mg daily Plavix 75 mg daily Irbesartan 150 mg daily Isosorbide mononitrate 30 mg daily Metoprolol succinate 25 mg daily Atorvastatin 40 mg daily HCTZ 12.5 mg daily Nitroglycerin sublingual 0.4 mg as needed chest pain Follow-up with cardiology in 1 week.
[2023-12-22] MEDS: hydroCHLOROthiazide 12.5MG CAPSULE 12.5 MG PO (09:07)
[2023-12-22] MEDS: IRBESARTAN 150MG TAB 150 MG PO (09:07)
[2023-12-22] MEDS: ISOSORBIDE MONO 30MG TAB.ER.24H 30 MG PO (09:07)
[2023-12-22 09:26] LABS: CATHL Activated Clotting Time 257 SEC (74-125)
[2023-12-22 09:40] LABS: Triiodothryronine (T3) Uptake 31 % (23.5-40.5)
[2023-12-22 09:41] LABS: T4 (Thyroxine) 6.5 ug/dl (5.53-11.0)
[2023-12-22 09:55] LABS: Thyroid Stimulating Hormone 4.67 uIU/mL (0.465-4.68)
[2023-12-22] MEDS: ASPIRIN EC 81MG TABLET 81 MG PO (10:29)
[2023-12-22] MEDS: CLOPIDOGREL 75MG TAB 75 MG PO (10:29)
[2023-12-22] MEDS: METOPROLOL SUCCINATE XL 25MG TABLET 25 MG PO (10:29)
--- NOTE | 2023-12-22 14:37 | P.DS_ITS ---
General Admission date:: 12/20/23 Discharge date: 12/22/23 HPI HPI HPI: Mr. Mercedes is a pleasant 53-year-old male with history of CABG a year ago and previous MIs necessitating stenting (6 stents prior to CABG). He presented to [facility] on Thursday due to onset of chest pain. Concern for NSTEMI at that time. Troponin was initially 80, elevated to 123 with gradual decrease back down to 89. Stress test was performed at [facility] which showed small foci of ischemia. Due to lack of interventional cardiology, [facility] was consulted for transfer for inte rventional cardiology and definitive management. Patient was initiated on aspirin and Plavix. States has been having some intermittent chest pain since admission. EKG is not showing any ischemic changes or ST elevations. Medically managed with aspirin, Plavix, Lovenox. Transferred this evening for further care. Of note, occasionally will use cocaine. Last use within the past week. Also drinks regularly. Last drink evening. No signs of withdrawal. On time of arrival, he stable on room air. Denies any nausea or vomiting. No confusion or weakness. No active chest pain at this moment. Hospital Course Hospital Course Hospital Course: Mr. Mercedes a 53-year-old male with significant CAD, history of CABG a year ago, COPD, who presented with atypical chest pain and concern for NSTEMI to [facility] on Thursday. Case discussed with hospitalist from [facility], request transfer for definitive management of NSTEMI as they do not have interventional cardiology and patient had ischemic defect noted on stress test. Medicine agreed to admit for further management. Cardiology consulted for the morning. Problems addressed as follows: NSTEMI CAD History of CABG ([place]) -Patient on ALIZA inhibitor, HCTZ, metoprolol, daily aspirin only. Will continue aspirin 81 mg daily and Plavix 75 mg daily. S/p PCI 2 stents to LCx and OM. Echo shows Normal LVEF with mild RV dilation and dysfunction. Mild LAE with mild MR. Continue metoprolol succinate 25 mg daily, resume home losartan/HCTZ combo at discharge. Initiated on isosorbide mononitrate for blood pressure control. Will continue on dual antiplatelet therapy with aspirin and Plavix daily. Also initiated on metoprolol succinate 25 mg daily. Patient endorsed significant midsternal chest pain after LHC s/p 2 stents. Was initially placed on nitro drip. Chest pain resolved. This was the impetus for initiating Imdur. Close follow-up with cardiology to monitor for improvement. Substance dependence Alcohol use disorder - UDS positive for cocaine and opiates at outside hospital. Alcohol level negative. States he drinks regularly, 6-12 beers a day with bourbon intermittently. No signs of withdrawal over the past 2 days but has been given Ativan regularly. States he does not have withdrawal symptoms and or never has. Had no withdrawal symptoms on CIWA monitoring during admission. Discontinued Ativan that was being given regularly at [facility]. No clinica l indication for further doses on arrival. History of tobacco use disorder: Reports he currently vapes. History of COPD: Continue Trelegy 100 inhaler once daily. Stable on room air. Does not appear to be in exacerbation; continue Singulair 10 mg daily Exam Data for Last 24 hours Vital signs and Labs for Last 24 Hours: Temp Pulse Resp BP Pulse Ox O2 Del Method 98.5 F 87 17 146/88 H 94 L Room Air 12/22/23 12:00 12/22/23 12:00 12/22/23 12:00 12/22/23 12:00 12/22/23 12:00 12/22/23 12:39 Laboratory Results - last 24 hr 12/21/23 15:16: Activated Clotting Time 257 H* 12/22/23 05:31: WBC 7.1 D, RBC 4.13 L, Hgb 13.6 L, Hct 40.5 L, MCV 98.2 H, MCH 33.0 H, MCHC 33.6, RDW 13.3, Plt Count 156, MPV 7.8, Neut % (Auto) 74.8, Lymph % (Auto) 15.4, Owen % (Auto) 6.0, Eos % (Auto) 3.2, Baso % (Auto) 0.6, Neut # (Auto) 5.3, Lymph # (Auto) 1.1, Owen # (Auto) 0.4, Eos # (Auto) 0.2, Baso # (Auto) 0.0, Sodium 133 L, Potassium 4.1, Chloride 99, Carbon Dioxide 26, Anion Gap 12.1, BUN 10, Creatinine 0.70, Estimated Creat Clear 126, Estimated GFR 118, Est GFR ( Amer) 142, Glucose 100, Calcium 9.3, Magnesium 1.8 D, Total Bilirubin 0.5, AST 53 D, ALT 27, Alkaline Phosphatase 46, Total Protein 6.5, Albumin 3.9 D, Globulin 2.6, Albumin/Globulin Ratio 1.5 12/22/23 08:52: TSH 4.67, Free T4 Index 2.0 L, Thyroxine (T4) 6.5, T3 Uptake 31 I & O for Last 24 hours: Intake & Output 12/19/23 12/20/23 12/21/23 12/22/23 23:59 23:59 23:59 23:59 Intake Total 664.325 / 864.325 787.95 / 787.95 Output Total 0 / 650 1800 / 1800 Balance 664.325 / 214.325 -1012.05 / -1012.05 Weight 75.977 kg 76.113 kg 73.845 kg Constitutional Constitutional: no acute distress *Routine HEENT Exam Head: Present normocephalic Eye: Present EOMI and PERRL ENT: Present mucous membranes moist *Routine Neck Exam Neck: Present supple; Absent lymphadenopathy *Routine Respiratory Exam Respiratory: Present CTA bilaterally; Absent rhonchi, wheezes or crackles *Routine Cardiovascular Exam Cardiovascular: Present RRR Comments: Well-healed sternotomy scar *Routine Abdominal Exam Abdominal: Present soft and normoactive bowel sounds; Absent tenderness *Routine Rectal Exam Patient deferred: visual exam *Routine Exam Patient deferred: penile exam *Routine Extremities Exam Extremities: Absent cyanosis, clubbing or edema *Routine Skin Exam Skin: Present warm; Absent rash *Routine Neurological Exam Neurological: Present alert, oriented X3 and moving all extremities; Absent altered mental status Results Data Completed and Pending Labs on day of discharge: Labs from last 24 hours 12/22/23 12/22/23 12/21/23 08:52 05:31 15:16 WBC 7.1 D RBC 4.13 L Hgb 13.6 L Hct 40.5 L MCV 98.2 H MCH 33.0 H MCHC 33.6 RDW 13.3 Plt Count 156 MPV 7.8 Neut % (Auto) 74.8 Lymph % (Auto) 15.4 Owen % (Auto) 6.0 Eos % (Auto) 3.2 Baso % (Auto) 0.6 Neut # (Auto) 5.3 Lymph # (Auto) 1.1 Owen # (Auto) 0.4 Eos # (Auto) 0.2 Baso # (Auto) 0.0 Activated Clotting Time 257 H* Sodium 133 L Potassium 4.1 Chloride 99 Carbon Dioxide 26 Anion Gap 12.1 BUN 10 Creatinine 0.70 Estimated Creat Clear 126 Estimated GFR 118 Est GFR ( Amer) 142 Glucose 100 Calcium 9.3 Magnesium 1.8 D Total Bilirubin 0.5 AST 53 D ALT 27 Alkaline Phosphatase 46 Total Protein 6.5 Albumin 3.9 D Globulin 2.6 Albumin/Globulin Ratio 1.5 TSH 4.67 Free T4 Index 2.0 L Thyroxine (T4) 6.5 T3 Uptake 31 DS: Diagnosis Discharge Diagnosis (1) NSTEMI (non-ST elevated myocardial infarction): Status: Acute Code(s): I21.4 - Non-ST elevation (NSTEMI) myocardial infarction (2) CAD (coronary artery disease): Status: Acute Code(s): I25.10 - Atherosclerotic heart disease of [place] coronary artery without angina pectoris Qualifiers: Associated angina: with unstable angina Coronary Disease-Associated Artery/Lesion type: unspecified vessel or lesion type [place] vs. transplanted heart: [place] heart Qualified Code(s): I25.110 - Atherosclerotic heart disease of [place] coronary artery with unstable angina pectoris (3) Hx of CABG: Status: Acute Code(s): Z95.1 - Presence of aortocoronary bypass graft (4) Alcohol dependence: Status: Acute Code(s): F10.20 - Alcohol dependence, uncomplicated Qualifiers: Complication of substance-induced condition: uncomplicated Substance use status: with intoxication Qualified Code(s): F10.220 - Alcohol dependence with intoxication, uncomplicated (5) COPD (chronic obstructive pulmonary disease): Status: Acute Code(s): J44.9 - Chronic obstructive pulmonary disease, unspecified Qualifiers: COPD type: unspecified COPD Qualified Code(s): J44.9 - Chronic obstructive pulmonary disease, unspecified (6) History of cocaine use: Status: Acute Code(s): F14.91 - Cocaine use, unspecified, in remission Meds Home Medications and Allergies Home Medications ?Medication ?Instructions ?Recorded ?Confirmed ?Type fluticasone fur. 100 mcg-umeclid 1 ea inhalation DAILY 12/20/23 12/20/23 History 62.5 mcg-vilant 25 mcg inhalat.powder (Trelegy Ellipta) losartan 100 1 tab PO DAILY 12/20/23 12/20/23 History mg-hydrochlorothiazide 12.5 mg tablet metoprolol succinate 25 mg 25 mg PO DAILY 12/20/23 12/20/23 History tablet,extended release 24 hr montelukast 10 mg tablet 10 mg PO DAILY 12/20/23 12/20/23 History albuterol sulfate 2.5 mg/3 mL 2.5 mg inhalation Q6H PRN Wheezing 12/21/23 12/21/23 History (0.083 %) solution for nebulization albuterol sulfate 90 mcg/actuation 2 puff inhalation Q4H PRN Wheezing 12/21/23 12/21/23 History aerosol inhaler (Ventolin HFA) aspirin 81 mg chewable tablet 81 mg PO DAILY 12/21/23 12/21/23 History levothyroxine 100 mcg tablet 100 mcg PO DAILY 12/21/23 12/21/23 History atorvastatin 40 mg tablet 40 mg PO HS 30 days #30 tabs 12/22/23 Rx clopidogrel 75 mg tablet 75 mg PO DAILY 30 days #30 tabs 12/22/23 Rx isosorbide mononitrate 30 mg 30 mg PO DAILY 30 days #30 tabs 12/22/23 Rx tablet,extended release 24 hr New Prescriptions to Start Prescriptions: Crow Magana clopidogrel Keon,Crow isosorbide mononitrate Crow Herbert Allergies Allergy/AdvReac Type Severity Reaction Status Date / Time strawberry AdvReac Verified 02/04/20 15:49 Discharge Plan Disposition Patient Disposition: Home, Self-Care Condition: Fair Discharge Order Discharge Orders: Discharge Order (Routine); Ordered 12/22/23 Ordered By: Crow Herbert Follow up Plan Follow up with: Magan Chaudhari MD [Staff Physician] - 01/11/24 1:00 pm ProviderKenroy MD [Primary Care Provider] - Enter time for follow up (BRANDY CAMPO TO CALL FOR FOLLOW UP ) Prescriptions/Medication Reconciliation: New atorvastatin 40 mg Tablet 40 mg PO HS 30 Days Qty: 30 0RF isosorbide mononitrate 30 mg Tablet Extended Release 24 Hr 30 mg PO DAILY 30 Days Qty: 30 0RF clopidogrel 75 mg Tablet 75 mg PO DAILY 30 Days Qty: 30 0RF Continued montelukast 10 mg tablet 10 mg PO DAILY Patient Comments: Take 1 tablet by mouth Every Night. metoprolol succinate 25 mg tablet extended release 24 hr 25 mg PO DAILY Patient Comments: Take 1 tablet by mouth Daily. losartan-hydrochlorothiazide 100-12.5 mg tablet 1 tab PO DAILY Trelegy Ellipta 100-62.5-25 mcg blister with device 1 ea INHALATION DAILY Patient Comments: Inhale 1 puff Daily. albuterol sulfate 2.5 mg /3 mL (0.083 %) solution for nebulization 2.5 mg inhalation Q6H PRN (Reason: Wheezing) Patient Comments: INHALE ONE vial in NEBULIZER EVERY 6 HOURS NEEDED levothyroxine 100 mcg tablet 100 mcg PO DAILY Patient Comments: Take 1 tablet by mouth Daily. aspirin 81 mg tablet,chewable 81 mg PO DAILY Patient Comments: Chew 1 tablet Daily. chew and swallow albuterol sulfate [Ventolin HFA] 90 mcg/actuation HFA aerosol inhaler 2 puff INHALATION Q4H PRN (Reason: Wheezing) Patient Comments: Inhale 2 puffs Every 4 (Four) Hours As Needed for Wheezing. Problem Reconciliation Problems Reviewed?: Yes Patient Discharge Instructions ACTIVITY: Continue current activity DIET: continue same diet Patient Instructions: DI for Heart Attack, DI for Cardiac Catheterization, DI for Surgical Site Infection Print Language: [place] Providers Primary Care Provider: Provider,Referral Admit Provider: Eros Fam Attending Provider: Eros Fam
--- NOTE | 2023-12-31 20:16 | PC.NURSE ---
Records sent to [facility]
== END 2023-12-22 15:30 | disposition home or self-care (01) | DRG 322 ==
PROVIDERS: Internal Medicine; Internal Medicine Adolescent Medicine; Nurse Practitioner Family; Physician Assistant; Admitting Provider Student in an Organized Health Care Education/Training Program; Visit Provider Student in an Organized Health Care Education/Training Program
PROC: 027035Z Dilation of Coronary Artery, One Artery with Two Drug-eluting Intraluminal Devices, Percutaneous Approach (ICD-10-PCS; principal; 2023-12-21 08:30)
DX: I21.4 Non-ST elevation (NSTEMI) myocardial infarction (principal); F14.90 Cocaine use, unspecified, uncomplicated; F17.210 Nicotine dependence, cigarettes, uncomplicated; F10.20 Alcohol dependence, uncomplicated; I10 Essential (primary) hypertension; J44.9 Chronic obstructive pulmonary disease, unspecified; Z95.1 Presence of aortocoronary bypass graft; I25.2 Old myocardial infarction; Z95.5 Presence of coronary angioplasty implant and graft; E78.5 Hyperlipidemia, unspecified; I25.10 Atherosclerotic heart disease of native coronary artery without angina pectoris; E83.42 Hypomagnesemia; D53.9 Nutritional anemia, unspecified; Y90.8 Blood alcohol level of 240 mg/100 ml or more
CPT/HCPCS: 36415; 80048; 80050; 80053; 82607; 82746; 83735; 84436; 84443; 84479; 84484; 85025; 85347; 92928; 92929; 93005; 93306; 93459; 94640; 99152; 99153; C1725; C1760; C1769; C1874; C1894; C9600; C9601; J1171; J1200; J1644; J1650; J2060; J2250; J3010; J3475; Q9967

== ENCOUNTER 2023-12-31 21:46 | Observation (INO) | payer OTHER, SELFPAY ==
[2023-12-31 22:00] VITALS: BMI 24.7
--- NOTE | 2023-12-31 22:00 | PC.NURSE ---
Patient arrived to floor via stretcher with EMS from [facility] at 21:52.
[2023-12-31 22:29] VITALS: PULSE 75
[2023-12-31 22:34] VITALS: RESP 16; TEMP 36.8; O2SAT 100
[2024-01-01] VITALS (16 sets, daily range): BP systolic 92–142; BP diastolic 50–87; PULSE 70–110; RESP 16–18; TEMP 36.4–36.8; O2SAT 97–100; BMI 24.7
[2024-01-01 01:21] LABS: PTT Heparin (inpatient only) 26.7 Seconds (50-75)
[2024-01-01] MEDS: HEPARIN SODIUM,PORCINE/D5W 500 ML 18 UNIT IV (01:55)
[2024-01-01] MEDS: HEPARIN SODIUM 5,000 UNIT/ML VIAL 4000 UNIT IV ×2 (01:55→09:03)
[2024-01-01] MEDS: HEPARIN DRIP CONSULT 1 EACH NOTAPPLIC (02:32)
[2024-01-01] MEDS: AEROCHAMBER/OPTIHALER 1 UNIT MC (02:33)
[2024-01-01] MEDS: CALCIUM CARBONATE 500MG CHEWTAB 500 MG PO (03:32)
[2024-01-01 03:58] LABS: Troponin I 0.17 ng/ml (0.00-0.034)
--- NOTE | 2024-01-01 05:35 | PC.NURSE ---
Pt is A&OX4 and has tolerated room air. Lung sounds diminished and bowel sounds active. Reports slight chest discomfort but states it feels much better then it did before being admitted. Has ambulated with standby assist to bathroom. Heparin drip has been running @900 units/hr. Currently asleep with call light within reach.
--- NOTE | 2024-01-01 05:38 | P.HP_ITS ---
History of Present Illness *Admission Date: 01/01/24 *Reason for visit:: chest pain *History of present illness: Patient is a 53-year-old male with past medical history of CAD hyperlipidemia alcohol use hypertension who presents to the hospital as a transfer from outside facility due to chest pain. According to the patient he had left-sided chest pain, he went to [facility]. He was noted to have elevated troponin. He was given aspirin and had some pain relief. Patient has significant history of CAD, he recently had drug-eluting stents to OM and circumflex arteries. Patient mentions he has been compliant with his medications. He was also noted to have elevated alcohol level at outside facility. Patient was sent to this hospital for further evaluation. [facility] Disclaimer: The information contained in this section may have been updated after the patient was seen, as this information can be updated by other users. Medical History (Updated 12/31/23 @ 22:36 by Jackie Haney RN) Amputation of arm, right Emphysema with chronic bronchitis Asthma Myocardial infarction Hypertension COPD (chronic obstructive pulmonary disease) Surgical History (Updated 12/31/23 @ 22:36 by Jackie Haney RN) History of heart artery stent History of open heart surgery History of right heart catheterization (RHC) Social History (Updated 12/31/23 @ 22:39 by Jackie Haney RN) Smoking Status: Current every day smoker tobacco type: cigarettes packs per day: 1 and e-cigarettes smoking status start date: 1985 smoked: 38 quit status: not considering quitting alcohol intake: current alcohol intake frequency: 3 or more drinks per day current occupational status: employed and other Travel in the last 8 weeks: None household members: other housing: other Other Medical History Have you received the Flu Vaccine for this season: No Have you received the Pneumonia Vaccine: Yes Review of Systems Review of Systems Review of systems:: pertinent systems reviewed and negative unless documented below Meds Home Medications and Allergies Home Medications ?Medication ?Instructions ?Recorded ?Confirmed ?Type fluticasone fur. 100 mcg-umeclid 1 ea inhalation DAILY 12/20/23 12/31/23 History 62.5 mcg-vilant 25 mcg inhalat.powder (Trelegy Ellipta) losartan 100 1 tab PO DAILY 12/20/23 12/31/23 History mg-hydrochlorothiazide 12.5 mg tablet metoprolol succinate 25 mg 25 mg PO DAILY 12/20/23 12/31/23 History tablet,extended release 24 hr montelukast 10 mg tablet 10 mg PO DAILY 12/20/23 12/31/23 History albuterol sulfate 2.5 mg/3 mL 2.5 mg inhalation Q6H PRN Wheezing 12/21/23 12/31/23 History (0.083 %) solution for nebulization albuterol sulfate 90 mcg/actuation 2 puff inhalation Q4H PRN Wheezing 12/21/23 12/31/23 History aerosol inhaler (Ventolin HFA) aspirin 81 mg chewable tablet 81 mg PO DAILY 12/21/23 12/31/23 History levothyroxine 100 mcg tablet 100 mcg PO DAILY 12/21/23 12/31/23 History atorvastatin 40 mg tablet 40 mg PO HS 30 days #30 tabs 12/22/23 12/31/23 Rx clopidogrel 75 mg tablet 75 mg PO DAILY 30 days #30 tabs 12/22/23 12/31/23 Rx isosorbide mononitrate 30 mg 30 mg PO DAILY 30 days #30 tabs 12/22/23 12/31/23 Rx tablet,extended release 24 hr New Prescriptions to Start Prescriptions: Allergies Allergy/AdvReac Type Severity Reaction Status Date / Time strawberry AdvReac Verified 02/04/20 15:49 Exam Data for Last 24 hours Vital signs and Labs for Last 24 Hours: Temp Pulse Resp Pulse Ox O2 Del Method 97.6 F 96 H 18 99 Room Air 01/01/24 00:00 01/01/24 04:00 01/01/24 00:00 01/01/24 00:00 01/01/24 05:00 Laboratory Results - last 24 hr 01/01/24 01:00: APTT 26.7 L 01/01/24 03:30: Troponin I 0.17 H I & O for Last 24 hours: Intake & Output 12/29/23 12/30/23 12/31/23 01/01/24 23:59 23:59 23:59 23:59 Intake Total 250 / 250 Output Total 0 / 0 Balance 0 / 250 250 / 250 Weight 71.577 kg 71.4 kg Constitutional Constitutional: no acute distress *Routine HEENT Exam Head: Present normocephalic Eye: Present EOMI and PERRL ENT: Present mucous membranes moist *Routine Neck Exam Neck: Present supple; Absent lymphadenopathy *Routine Respiratory Exam Respiratory: Present CTA bilaterally *Routine Cardiovascular Exam Cardiovascular: Present RRR *Routine Abdominal Exam Abdominal: Present soft and normoactive bowel sounds; Absent tenderness *Routine Rectal Exam Rectal:: deferred *Routine Genitalia Exam Genitalia:: deferred *Routine Extremities Exam Extremities: Absent cyanosis, clubbing or edema *Routine Skin Exam Skin: Present warm; Absent rash *Routine Neurological Exam Neurological: Present alert and oriented X3 Assessment and Plan *Assessment and plan (1) Alcohol dependence: Status: Acute Qualifiers: Complication of substance-induced condition: uncomplicated Substance use status: with intoxication Qualified Code(s): F10.220 - Alcohol dependence with intoxication, uncomplicated Category: Medical Code(s): F10.20 - Alcohol dependence, uncomplicated (2) Hx of CABG: Status: Acute Category: Surgical Code(s): Z95.1 - Presence of aortocoronary bypass graft (3) CAD (coronary artery disease): Status: Acute Qualifiers: Associated angina: with unstable angina Coronary Disease-Associated Artery/Lesion type: unspecified vessel or lesion type [place] vs. transplanted heart: [place] heart Qualified Code(s): I25.110 - Atherosclerotic heart disease of [place] coronary artery with unstable angina pectoris Category: Medical Code(s): I25.10 - Atherosclerotic heart disease of [place] coronary artery without angina pectoris (4) NSTEMI (non-ST elevated myocardial infarction): Status: Acute Category: Medical Code(s): I21.4 - Non-ST elevation (NSTEMI) myocardial infarction (5) COPD (chronic obstructive pulmonary disease): Status: Acute Qualifiers: COPD type: unspecified COPD Qualified Code(s): J44.9 - Chronic obstructive pulmonary disease, unspecified Category: Medical Code(s): J44.9 - Chronic obstructive pulmonary disease, unspecified Plan Patient is a 53-year-old male with past medical history of CAD hyperlipidemia alcohol use hypertension who presents to the hospital as a transfer from outside facility due to chest pain. According to the patient he had left-sided chest pain, he went to [facility]. He was noted to have elevated troponin. He was given aspirin and had some pain relief. Patient has significant history of CAD, he recently had drug-eluting stents to OM and circumflex arteries. Patient mentions he has been compliant with his medications. He was also noted to have elevated alcohol level at outside facility. Patient was sent to this hospital for further evaluation. Assessment and plan NSTEMI Started on IV heparin Monitor troponin Monitor on cardiac telemetry Cardiology was consulted, recommended inpatient transfer to [facility] from [facility], patient has been made n.p.o. after midnight in anticipation of procedure Resume home aspirin, Plavix Resume home statin, losartan, HCTZ, metoprolol Alcohol and drug abuse Alcohol level 150 at outside facility Order CIWA assessment with as needed Ativan Monitor for alcohol withdrawal symptoms Chronic medical conditions History of COPD-resume home inhaler therapy History of tobacco use-nicotine patch DVT prophylaxis-on IV heparin
[2024-01-01 06:32] LABS: Basophils # 0.1 K/mm3 (0-0.2); Basophils % 0.5 % (0.1-2.0); Chloride 95 mmol/L (98-107); Eosinophils # 0.1 K/mm3 (0.0-0.4); Eosinophils % 1.1 % (0.1-12.0); Hematocrit 39.1 % (42.0-52.0); Hemoglobin 13.6 g/dL (14.1-18.0); Lymphocytes # 1.5 K/mm3 (0.7-4.5); Lymphocytes % 13.1 % (10-50); Mean Corpuscular HGB Conc 34.8 g/dL (31.8-35.4); Mean Corpuscular Hemoglobin 33.2 pg (27.0-31.2); Mean Corpuscular Volume 95.4 fl (80-94); Mean Platelet Volume 7.6 fl (7.4-10.4); Monocytes # 0.5 K/mm3 (0.1-1.0); Monocytes % 4.1 % (1.7-9.3); Neutrophils % 81.1 % (37.0-80.0); Platelet Count 208 K/mm3 (142-424); Red Cell Distribution Width 13.1 % (11.5-17.5); White Blood Count 11.1 K/mm3 (4.8-10.8)
[2024-01-01 06:33] LABS: Sodium 133 mmol/L (136-145)
[2024-01-01 06:35] LABS: Blood Urea Nitrogen 9 mg/dl (9-20); Creatinine Clearance Estimated 122 mL/min (50-200); Estimated Glomerular Filt Rate 118 ml/min (>60); GFR (African American) 142 ML/MIN (>60)
[2024-01-01 06:36] LABS: Carbon Dioxide 29 mmol/L (22.0-30.0); Glucose 259 mg/dl (74-100)
[2024-01-01] MEDS: ALBUTEROL 0.083% 2.5 MG/3 ML NEB IH (06:40)
[2024-01-01 06:45] LABS: Anion Gap 12.1 mEq/L (5-15); Potassium 3.1 mmoL/L (3.5-5.1)
[2024-01-01 08:31] LABS: PTT Heparin (inpatient only) 37.8 Seconds (50-75)
--- NOTE | 2024-01-01 08:51 | PC.NURSE ---
pharmacy called and said to up heparin gtt from 18 ml/hr to 23 ml/hr. Verified with Kendra Mittal RN.
[2024-01-01] MEDS: ASPIRIN 81MG CHEWABLE TABLET 81 MG PO (09:04)
[2024-01-01] MEDS: METOPROLOL SUCCINATE XL 25MG TABLET 25 MG PO (09:05)
[2024-01-01] MEDS: IRBESARTAN 150MG TAB 150 MG PO (09:05)
[2024-01-01] MEDS: ISOSORBIDE MONO 30MG TAB.ER.24H 30 MG PO (09:05)
[2024-01-01] MEDS: POTASSIUM CHLORIDE 20MEQ TAB 60 MEQ PO (09:05)
[2024-01-01] MEDS: hydroCHLOROthiazide 12.5MG CAPSULE 12.5 MG PO (09:05)
[2024-01-01] MEDS: LEVOTHYROXINE 100MCG (0.1MG) TAB 100 MCG PO (09:05)
[2024-01-01] MEDS: CLOPIDOGREL 75MG TAB 75 MG PO (09:05)
[2024-01-01] MEDS: MONTELUKAST SODIUM 10MG TAB 10 MG PO (09:05)
[2024-01-01] MEDS: HEPARIN SODIUM,PORCINE/D5W 500 ML 23 UNIT IV (09:09)
[2024-01-01] MEDS: FLUTICASONE/UMECLIDIN/VILANTER 100/62.5/25MCG INHALER 1 PUFF IH (09:12)
[2024-01-01 09:32] LABS: Magnesium 0.8 mg/dl (1.6-2.3)
--- NOTE | 2024-01-01 09:56 | CA_ITS ---
APPROVED REPORT EXAM: Limited 2D Echocardiogram [place]: Renetta Valdivia RDCS Ht: 5 ft 7 in Wt: 167lbs BSA: 1.87 BP: 134/81 mmHg Indications: NSTEMI,CAD,ABN EKG LIMITED EXAM M-Mode Dimensions RVDd 3.37 cm (0.9-2.6) LA Diam 3.55 cm (1.9-4.0) LVDd 4.45 cm (3.5-5.7) LVDs 2.76 cm (3.5-5.7) IVSd 0.93 cm (0.6-1.1) PWd 1.11 cm (0.6-1.1) EF (Teich) 68.40% FS 38.00% EDV (Teich) 90.10 mL ESV (Teich) 28.50 mL Other Information Study Quality: Fair Conclusion This is a limited TTE to evaluate for LVEF and regional wall motion in the setting of NSTEMI. Limited windows are obtained. The LV is normal in size. There is increased LV wall thickness. There is normal global LV systolic function. No regional wall motion abnormalities are noted. LVEF is 55%. The right ventricle is mildly dilated. There is mild reduction in RV function. Compared to recent study from 12/21/2023, there is no significant change to the biventricular size and systolic function. Electronically signed by : Nicki Hammer MD 01/02/2024 00:34:02
--- NOTE | 2024-01-01 09:59 | IR_ITS ---
APPROVED REPORT Patient Location: Inpatient Interviewing Clerk: Guzman Marquez RT (R) PROCEDURES 1. Left heart catheterization 2. Selective coronary arteriography 3. Left ventriculography 4. Saphenous vein graft arteriography 5. Left internal mammary artery arteriography INDICATION 1. Non-Q wave myocardial infarction, 2. Coronary artery disease, 3. Coronary artery bypass grafting SCAI INDICATION Patient is a 53-year-old white male with known coronary artery disease status post multiple stents as well as coronary artery bypass grafting who presented with chest pain. Non-Q wave myocardial infarction. Known coronary artery disease. Secondary to this referred directly for left heart catheterization Informed consent was obtained prior to the procedure. COMPLICATIONS None Estimated Blood Loss: Less than 10 mls TECHNIQUE One percent lidocaine used to anesthetize the right groin. The right femoral artery was accessed via the Seldinger technique and a 5 Spanish sheath was placed in the right femoral artery. A JL 4, JR4 catheter were used to perform left heart catheterization, left ventriculogram selective coronary angiography as well as selective engagement of the 2 vein grafts and the left internal mammary artery. At the end of the procedure the patient was transferred to the postop holding area in stable condition for sheath removal. ANGIOGRAPHIC RESULTS The left main artery Angiographically normal The left anterior descending artery 99% proximal occlusion. Scant collateral flow seen in the mid vessel The circumflex artery Large vessel with stents noted throughout the mid vessel. The stents are patent. There was a very small obtuse marginal branch which was pinched in its ostial portion from the stents. Normal flow into the mid and distal vessel The right coronary artery Large and dominant with 100% occlusion in its midportion after a patent stent in the proximal vessel. There was a small acute marginal branch which came off just prior to the 100% occlusion which had a an 80% ostial stenosis. Normal flow into that acute marginal branch itself The DIA ventriculogram reveals Performed in the DIA projection shows normal left ventricular systolic function with an ejection fraction of 55 to 60%. No wall motion abnormalities. No gradient on pullback of the catheter The left ventricular end-diastolic pressure 7 Saphenous vein graft to the right coronary artery was large and patent. No gradient on engagement of the saphenous vein graft. Excellent flow to the distal right coronary artery. The touchdown to the posterior descending artery with excellent backfill with a posterior lateral branch Saphenous vein graft number 2 100% occluded in its ostial portion Left internal mammary artery to left anterior descending was patent. No gradient on engagement of the left internal mammary artery. Excellent touchdown to the mid left anterior descending with excellent flow into the mid and distal vessel with backfill of the diagonal branch IMPRESSION 1. Severe two-vessel [place] coronary artery disease as described above 2. Patent saphenous vein graft to the posterior descending artery with backfill of the posterior lateral branch 3. Patent left internal mammary artery to mid left anterior descending 4. Patent stents throughout the mid left circumflex 5. Moderate branch vessel disease in a pinched first obtuse marginal branch of the circumflex which was small in size as well as an acute marginal branch of the right coronary artery which was small in size 6. Preserved normal left ventricular systolic function 7. Normal left ventricular end-diastolic pressure 8. Successful placement of an Angio-Seal device in the right common femoral artery PLAN 1. At this time patient has full revascularization. Patient was in acute non-ST elevation myocardial infarction back 10 days ago. The small leak of cardiac enzymes may be procedural and secondary to that in the intervention. Patient does have some branch vessel disease. That is not new. These branches are very small in size that 1.5 mm or less. There is normal FREDY-3 flow into the branches. All the large vessels are widely patent with the saphenous vein graft to the right coronary artery and the left internal mammary artery to the left anterior descending patent. The stents that were placed a week and a half ago are widely patent. Left ventricular function is normal. Continue with aggressive medical therapy. Aggressive titration of antianginals. Continue dual antiplatelet therapy. Follow-up in cardiology clinic 1 to 2 weeks after discharge Electronically signed by : Julio Page MD 01/01/2024 12:09:56
[2024-01-01 10:14] LABS: Troponin I 0.16 ng/ml (0.00-0.034)
--- NOTE | 2024-01-01 10:17 | HMH.PHAINT1 ---
Pharmacy Intervention Comments: MEDICATION RECONCILIATION COMPLETE USING MOST RECENT HOSPITAL DISCHARGE NOTE AND EXTERNAL PHARMACY FILL HISTORY.
[2024-01-01] MEDS: MAGNESIUM SULFATE IN WATER 2 GM/50 ML PIGGYBACK IV ×2 (10:18→12:29)
--- NOTE | 2024-01-01 10:36 | EXP.CARD.CON ---
History of Present Illness History of Present Illness Consult date: 01/01/24 Requesting physician: Eros Fam Consult reason: chest pain Chief complaint: Chest pain History of present illness: This is a 53-year-old white male with past medical history of coronary artery disease status post stenting and CABG, alcohol use, hypertension, cocaine use who presented to emergency department from [facility] with complaints of left-sided chest pain darting after eating dinner last night. Patient reports at first he thought it was reflux secondary to eating wings but when pain continued he decided to go to the ER. Patient had elevated troponin at [facility] so he was transferred to [facility] for further cardiology evaluation. Of note patient was taken to [facility] on 12/21/2023 and received stenting to the proximal mid circumflex artery and first obtuse marginal. Patient reports has been compliant with his medication. This morning patient reports he still having mild chest pressure troponin is elevated at 0.17. Repeat limited echo is pending. [facility] Disclaimer: The information contained in this section may have been updated after the patient was seen, as this information can be updated by other users. Medical History (Updated 12/31/23 @ 22:36 by Jackie Haney RN) Amputation of arm, right Emphysema with chronic bronchitis Asthma Myocardial infarction Hypertension COPD (chronic obstructive pulmonary disease) Surgical History (Updated 12/31/23 @ 22:36 by Jackie Haney RN) History of heart artery stent History of open heart surgery History of right heart catheterization (RHC) Social History (Updated 12/31/23 @ 22:39 by Jackie Haney RN) Smoking Status: Current every day smoker tobacco type: cigarettes packs per day: 1 and e-cigarettes smoking status start date: 1985 smoked: 38 quit status: not considering quitting alcohol intake: current alcohol intake frequency: 3 or more drinks per day current occupational status: employed and other Travel in the last 8 weeks: None household members: other housing: other Review of Systems Review of Systems Review of systems:: pertinent systems reviewed and negative unless documented below *Cardiovascular Cardiovascular: Reports chest pain Exam Data for Last 24 hours Vital signs and Labs for Last 24 Hours: Temp Pulse Resp BP Pulse Ox O2 Del Method 98 F 110 H 16 142/87 H 100 Room Air 01/01/24 07:46 01/01/24 08:00 01/01/24 07:46 01/01/24 07:46 01/01/24 07:46 01/01/24 09:29 Laboratory Results - last 24 hr 01/01/24 01:00: APTT 26.7 L 01/01/24 03:30: Troponin I 0.17 H 01/01/24 06:13: WBC 11.1 H, RBC 4.10 L, Hgb 13.6 L, Hct 39.1 L, MCV 95.4 H, MCH 33.2 H, MCHC 34.8, RDW 13.1, Plt Count 208, MPV 7.6, Neut % (Auto) 81.1 H, Lymph % (Auto) 13.1, [place] % (Auto) 4.1, Eos % (Auto) 1.1, Baso % (Auto) 0.5, Neut # (Auto) 9.0 H, Lymph # (Auto) 1.5, [place] # (Auto) 0.5, Eos # (Auto) 0.1, Baso # (Auto) 0.1, Sodium 133 L, Potassium 3.1 L, Chloride 95 L, Carbon Dioxide 29, Anion Gap 12.1, BUN 9, Creatinine 0.70, Estimated Creat Clear 122, Estimated GFR 118, Est GFR ( Amer) 142, Glucose 259 H, Calcium 9.0 01/01/24 08:00: APTT 37.8 L, Magnesium 0.8 L 01/01/24 09:40: Troponin I 0.16 H I & O for Last 24 hours: Intake & Output 12/29/23 12/30/23 12/31/23 01/01/24 23:59 23:59 23:59 23:59 Intake Total 250 / 250 Output Total 0 / 0 Balance 0 / 250 250 / 250 Weight 157 lb 12.8 oz 157 lb 6.561 oz Constitutional Constitutional: no acute distress *Routine Respiratory Exam Respiratory: Present CTA bilaterally and symmetric chest movement *Routine Cardiovascular Exam Cardiovascular: Present RRR, Normal S1 and Normal S2 *Routine Abdominal Exam Abdominal: Present soft and normoactive bowel sounds; Absent tenderness *Routine Extremities Exam Extremities: Present full ROM and normal capillary refill; Absent edema *Routine Skin Exam Skin: Present intact, dry and warm Detailed Neck Exam: Thyroids Thyroid: Absent bruit Meds Home Medications and Allergies Home Medications ?Medication ?Instructions ?Recorded ?Confirmed ?Type fluticasone fur. 100 mcg-umeclid 1 inh inhalation DAILY 12/20/23 01/01/24 History 62.5 mcg-vilant 25 mcg inhalat.powder (Trelegy Ellipta) losartan 100 1 tab PO DAILY 12/20/23 01/01/24 History mg-hydrochlorothiazide 12.5 mg tablet metoprolol succinate 25 mg 25 mg PO DAILY 12/20/23 01/01/24 History tablet,extended release 24 hr montelukast 10 mg tablet 10 mg PO PM 12/20/23 01/01/24 History albuterol sulfate 2.5 mg/3 mL 2.5 mg inhalation Q6HP PRN Wheezing 12/21/23 01/01/24 History (0.083 %) solution for nebulization albuterol sulfate 90 mcg/actuation 2 puff inhalation Q4HP PRN Wheezing 12/21/23 01/01/24 History aerosol inhaler (Ventolin HFA) aspirin 81 mg chewable tablet 81 mg PO DAILY 12/21/23 01/01/24 History levothyroxine 100 mcg tablet 100 mcg PO DAILYDM 12/21/23 01/01/24 History atorvastatin 40 mg tablet 40 mg PO HS 30 days #30 tabs 12/22/23 01/01/24 Rx clopidogrel 75 mg tablet 75 mg PO DAILY 30 days #30 tabs 12/22/23 01/01/24 Rx isosorbide mononitrate 30 mg 30 mg PO DAILY 30 days #30 tabs 12/22/23 01/01/24 Rx tablet,extended release 24 hr New Prescriptions to Start Prescriptions: Allergies Allergy/AdvReac Type Severity Reaction Status Date / Time strawberry AdvReac Verified 02/04/20 15:49 Assessment and Plan *Assessment and plan (1) History of cocaine use: Status: Acute Category: Medical Code(s): F14.91 - Cocaine use, unspecified, in remission (2) Alcohol dependence: Status: Acute Qualifiers: Substance use status: with intoxication Complication of substance-induced condition: uncomplicated Qualified Code(s): F10.220 - Alcohol dependence with intoxication, uncomplicated Category: Medical Code(s): F10.20 - Alcohol dependence, uncomplicated (3) Hx of CABG: Status: Acute Category: Surgical Code(s): Z95.1 - Presence of aortocoronary bypass graft (4) CAD (coronary artery disease): Status: Acute Qualifiers: Coronary Disease-Associated Artery/Lesion type: unspecified vessel or lesion type [place] vs. transplanted heart: [place] heart Associated angina: with unstable angina Qualified Code(s): I25.110 - Atherosclerotic heart disease of [place] coronary artery with unstable angina pectoris Category: Medical Code(s): I25.10 - Atherosclerotic heart disease of [place] coronary artery without angina pectoris (5) NSTEMI (non-ST elevated myocardial infarction): Status: Acute Category: Medical Code(s): I21.4 - Non-ST elevation (NSTEMI) myocardial infarction Plan History of coronary artery disease History of CABG and stenting Patient presenting with chest pain still complaining of pain this morning. Troponin elevated to 0.17 EKG is pending Patient underwent left heart catheterization 12/21/2023 receiving stenting to proximal and mid circumflex as well as first obtuse marginal artery Patient reports compliance with medication Will proceed with left heart catheterization for further evaluation of coronary artery disease. Discussed risk versus benefits with patient he is agreeable to proceed. Repeat limited echo pending Continue aspirin 81 mg p.o. daily, Lipitor 40 mg p.o. daily Plavix 75 mg p.o. daily and metoprolol succinate 25 mg p.o. daily Hypertension Continue irbesartan 150 mg p.o. daily, metoprolol succinate 25 mg p.o. daily and HCTZ 12.5 mg p.o. daily Alcohol abuse History of cocaine use Drug screen pending CV summary 01/01/2024: We will proceed with left heart catheterization for further evaluation of coronary artery disease in the setting of elevated troponin and complaint of chest pain. Repeat limited echo pending. Cardiac meds: Aspirin 81 mg p.o. daily Lipitor 40 mg p.o. daily Plavix 75 mg p.o. daily Metoprolol succinate 25 mg p.o. daily Irbesartan 150 mg p.o. daily Hydrochlorothiazide 12.5 mg p.o. daily
[2024-01-01] MEDS: 0.9 % SODIUM CHLORIDE 500 ML 25 ML IV (11:48)
[2024-01-01] MEDS: diphenhydrAMINE 50MG/ML VIAL 50 MG IV (11:48)
[2024-01-01] MEDS: HEPARIN 1,000 UNITS/500ML NS (CATH LAB) 3000 UNIT IV (11:48)
[2024-01-01] MEDS: FENTANYL 100MCG/2ML VIAL 50 MCG IV (11:54)
[2024-01-01] MEDS: MIDAZOLAM HCL 1MG/ML 5ML VIAL 1 MG IV (11:54)
[2024-01-01] MEDS: IOPAMIDOL-370 (76%);100ML BOTTLE 60 ML IV (12:46)
[2024-01-01 14:28] LABS: PTT Heparin (inpatient only) 31.5 Seconds (50-75)
--- NOTE | 2024-01-01 22:29 | EXP.DC.SUM ---
General Admission date:: 12/31/23 HPI HPI HPI: Patient is a 53-year-old male with past medical history of CAD hyperlipidemia alcohol use hypertension who presents to the hospital as a transfer from outside facility due to chest pain. According to the patient he had left-sided chest pain, he went to [facility]. He was noted to have elevated troponin. He was given aspirin and had some pain relief. Patient has significant history of CAD, he recently had drug-eluting stents to OM and circumflex arteries. Patient mentions he has been compliant with his medications. He was also noted to have elevated alcohol level at outside facility. Patient was sent to this hospital for further evaluation. Hospital Course Hospital Course Hospital Course: Patient is a 53-year-old male with past medical history of CAD hyperlipidemia alcohol use hypertension who presents to the hospital as a transfer from outside facility due to chest pain. According to the patient he had left-sided chest pain, he went to [facility]. He was noted to have elevated troponin. He was given aspirin and had some pain relief. Patient has significant history of CAD, he recently had drug-eluting stents to OM and circumflex arteries. Patient mentions he has been compliant with his medications. He was also noted to have elevated alcohol level at outside facility. Patient was sent to this hospital for further evaluation. History of coronary artery disease History of CABG and stenting #NSTEMI Patient presenting with chest pain still complaining of pain this morning. Of note, patient has a history of cocaine use and reports he has continued using. Troponin elevated to 0.17. EKG did not show acute ischemic findings. Patient recently underwent left heart catheterization 12/21/2023 receiving stenting to proximal and mid circumflex as well as first obtuse marginal artery. Reports adherence with medications. Started on IV heparin drips. Cardiology consulted, performed LHC on 01/01/24 showing no stentable occlusions. Troponemia like from recent stent vs demand ischemia from cocaine use. Limited ECHO showed LVEF 55% with no regional wall motion abnormalities. Chest pain free currently. Vital signs stable. Medically stable for discharge. Continue aspirin 81 mg p.o. daily, Lipitor 40 mg p.o. daily Plavix 75 mg p.o. daily and metoprolol succinate 25 mg p.o. daily. Will follow-up with cardiology within 1 week. Educated on cocaine cessation and its cardiovascular risks. #Hypertension Continue irbesartan 150 mg p.o. daily, metoprolol succinate 25 mg p.o. daily and HCTZ 12.5 mg p.o. daily #Alcohol and drug abuse Alcohol level 150 at outside facility. Patient has a history of cocaine use and reports he has continued using. Placed on CIWA protocol, did not require Ativan. Counseled on alcohol reduction, and cocaine cessation. Exam Data for Last 24 hours Vital signs and Labs for Last 24 Hours: Temp Pulse Resp BP Pulse Ox O2 Del Method 98.3 F 77 16 115/68 97 Room Air 01/01/24 20:00 01/01/24 20:00 01/01/24 20:00 01/01/24 20:00 01/01/24 20:00 01/01/24 21:00 Laboratory Results - last 24 hr 01/01/24 01:00: APTT 26.7 L 01/01/24 03:30: Troponin I 0.17 H 01/01/24 06:13: WBC 11.1 H, RBC 4.10 L, Hgb 13.6 L, Hct 39.1 L, MCV 95.4 H, MCH 33.2 H, MCHC 34.8, RDW 13.1, Plt Count 208, MPV 7.6, Neut % (Auto) 81.1 H, Lymph % (Auto) 13.1, [place] % (Auto) 4.1, Eos % (Auto) 1.1, Baso % (Auto) 0.5, Neut # (Auto) 9.0 H, Lymph # (Auto) 1.5, [place] # (Auto) 0.5, Eos # (Auto) 0.1, Baso # (Auto) 0.1, Sodium 133 L, Potassium 3.1 L, Chloride 95 L, Carbon Dioxide 29, Anion Gap 12.1, BUN 9, Creatinine 0.70, Estimated Creat Clear 122, Estimated GFR 118, Est GFR ( Amer) 142, Glucose 259 H, Calcium 9.0 01/01/24 08:00: APTT 37.8 L, Magnesium 0.8 L 01/01/24 09:40: Troponin I 0.16 H 01/01/24 14:00: APTT 31.5 L Temp Pulse Resp BP Pulse Ox O2 Del Method 98 F 110 H 16 142/87 H 100 Room Air 01/01/24 07:46 01/01/24 08:00 01/01/24 07:46 01/01/24 07:46 01/01/24 07:46 01/01/24 09:29 Laboratory Results - last 24 hr 01/01/24 01:00: APTT 26.7 L 01/01/24 03:30: Troponin I 0.17 H 01/01/24 06:13: WBC 11.1 H, RBC 4.10 L, Hgb 13.6 L, Hct 39.1 L, MCV 95.4 H, MCH 33.2 H, MCHC 34.8, RDW 13.1, Plt Count 208, MPV 7.6, Neut % (Auto) 81.1 H, Lymph % (Auto) 13.1, [place] % (Auto) 4.1, Eos % (Auto) 1.1, Baso % (Auto) 0.5, Neut # (Auto) 9.0 H, Lymph # (Auto) 1.5, [place] # (Auto) 0.5, Eos # (Auto) 0.1, Baso # (Auto) 0.1, Sodium 133 L, Potassium 3.1 L, Chloride 95 L, Carbon Dioxide 29, Anion Gap 12.1, BUN 9, Creatinine 0.70, Estimated Creat Clear 122, Estimated GFR 118, Est GFR ( Amer) 142, Glucose 259 H, Calcium 9.0 01/01/24 08:00: APTT 37.8 L, Magnesium 0.8 L 01/01/24 09:40: Troponin I 0.16 H I & O for Last 24 hours: Intake & Output 12/29/23 12/30/23 12/31/23 01/01/24 23:59 23:59 23:59 23:59 Intake Total 1190 / 1190 Output Total 0 / 0 0 / 0 Balance 0 / 250 1190 / 1190 Weight 71.577 kg 71.4 kg Intake & Output 12/29/23 12/30/23 12/31/23 01/01/24 23:59 23:59 23:59 23:59 Intake Total 250 / 250 Output Total 0 / 0 Balance 0 / 250 250 / 250 Weight 157 lb 12.8 oz 157 lb 6.561 oz Constitutional Constitutional: no acute distress *Routine Respiratory Exam Respiratory: Present CTA bilaterally and symmetric chest movement *Routine Cardiovascular Exam Cardiovascular: Present RRR, Normal S1 and Normal S2 *Routine Abdominal Exam Abdominal: Present soft and normoactive bowel sounds; Absent tenderness *Routine Extremities Exam Extremities: Present full ROM and normal capillary refill; Absent edema *Routine Skin Exam Skin: Present intact, dry and warm Detailed Neck Exam: Thyroids Thyroid: Absent bruit Results Data Completed and Pending Labs on day of discharge: Labs from last 24 hours 01/01/24 01/01/24 01/01/24 14:00 09:40 08:00 WBC RBC Hgb Hct MCV MCH MCHC RDW Plt Count MPV Neut % (Auto) Lymph % (Auto) [place] % (Auto) Eos % (Auto) Baso % (Auto) Neut # (Auto) Lymph # (Auto) [place] # (Auto) Eos # (Auto) Baso # (Auto) APTT 31.5 L 37.8 L Sodium Potassium Chloride Carbon Dioxide Anion Gap BUN Creatinine Estimated Creat Clear Estimated GFR Est GFR ( Amer) Glucose Calcium Magnesium 0.8 L Troponin I 0.16 H 01/01/24 01/01/24 01/01/24 06:13 03:30 01:00 WBC 11.1 H RBC 4.10 L Hgb 13.6 L Hct 39.1 L MCV 95.4 H MCH 33.2 H MCHC 34.8 RDW 13.1 Plt Count 208 MPV 7.6 Neut % (Auto) 81.1 H Lymph % (Auto) 13.1 [place] % (Auto) 4.1 Eos % (Auto) 1.1 Baso % (Auto) 0.5 Neut # (Auto) 9.0 H Lymph # (Auto) 1.5 [place] # (Auto) 0.5 Eos # (Auto) 0.1 Baso # (Auto) 0.1 APTT 26.7 L Sodium 133 L Potassium 3.1 L Chloride 95 L Carbon Dioxide 29 Anion Gap 12.1 BUN 9 Creatinine 0.70 Estimated Creat Clear 122 Estimated GFR 118 Est GFR ( Amer) 142 Glucose 259 H Calcium 9.0 Magnesium Troponin I 0.17 H DS: Diagnosis Discharge Diagnosis (1) History of cocaine use: Status: Acute Code(s): F14.91 - Cocaine use, unspecified, in remission (2) Alcohol dependence: Status: Acute Code(s): F10.20 - Alcohol dependence, uncomplicated Qualifiers: Complication of substance-induced condition: uncomplicated Substance use status: with intoxication Qualified Code(s): F10.220 - Alcohol dependence with intoxication, uncomplicated (3) Hx of CABG: Status: Acute Code(s): Z95.1 - Presence of aortocoronary bypass graft (4) CAD (coronary artery disease): Status: Acute Code(s): I25.10 - Atherosclerotic heart disease of [place] coronary artery without angina pectoris Qualifiers: Associated angina: with unstable angina Coronary Disease-Associated Artery/Lesion type: unspecified vessel or lesion type [place] vs. transplanted heart: [place] heart Qualified Code(s): I25.110 - Atherosclerotic heart disease of [place] coronary artery with unstable angina pectoris (5) NSTEMI (non-ST elevated myocardial infarction): Status: Acute Code(s): I21.4 - Non-ST elevation (NSTEMI) myocardial infarction Meds Home Medications and Allergies Home Medications ?Medication ?Instructions ?Recorded ?Confirmed ?Type fluticasone fur. 100 mcg-umeclid 1 inh inhalation DAILY 12/20/23 01/01/24 History 62.5 mcg-vilant 25 mcg inhalat.powder (Trelegy Ellipta) losartan 100 1 tab PO DAILY 12/20/23 01/01/24 History mg-hydrochlorothiazide 12.5 mg tablet metoprolol succinate 25 mg 25 mg PO DAILY 12/20/23 01/01/24 History tablet,extended release 24 hr montelukast 10 mg tablet 10 mg PO PM 12/20/23 01/01/24 History albuterol sulfate 2.5 mg/3 mL 2.5 mg inhalation Q6HP PRN Wheezing 12/21/23 01/01/24 History (0.083 %) solution for nebulization albuterol sulfate 90 mcg/actuation 2 puff inhalation Q4HP PRN Wheezing 12/21/23 01/01/24 History aerosol inhaler (Ventolin HFA) aspirin 81 mg chewable tablet 81 mg PO DAILY 12/21/23 01/01/24 History levothyroxine 100 mcg tablet 100 mcg PO DAILYDM 12/21/23 01/01/24 History atorvastatin 40 mg tablet 40 mg PO HS 30 days #30 tabs 12/22/23 01/01/24 Rx clopidogrel 75 mg tablet 75 mg PO DAILY 30 days #30 tabs 12/22/23 01/01/24 Rx isosorbide mononitrate 30 mg 30 mg PO DAILY 30 days #30 tabs 12/22/23 01/01/24 Rx tablet,extended release 24 hr New Prescriptions to Start Prescriptions: Allergies Allergy/AdvReac Type Severity Reaction Status Date / Time strawberry AdvReac Verified 02/04/20 15:49 Discharge Plan Disposition Patient Disposition: Home, Self-Care Condition: Good Follow up Plan Follow up with: Stevie Mercer PA [Physician Cemetery Manager] - 01/07/24 9:45 am Prescriptions/Medication Reconciliation: Continued montelukast 10 mg tablet 10 mg PO PM metoprolol succinate 25 mg tablet extended release 24 hr 25 mg PO DAILY losartan-hydrochlorothiazide 100-12.5 mg tablet 1 tab PO DAILY Trelegy Ellipta 100-62.5-25 mcg blister with device 1 inh INHALATION DAILY albuterol sulfate 2.5 mg /3 mL (0.083 %) solution for nebulization 2.5 mg inhalation Q6HP PRN (Reason: Wheezing) levothyroxine 100 mcg tablet 100 mcg PO DAILYDM aspirin 81 mg tablet,chewable 81 mg PO DAILY Patient Comments: Chew 1 tablet Daily. chew and swallow albuterol sulfate [Ventolin HFA] 90 mcg/actuation HFA aerosol inhaler 2 puff INHALATION Q4HP PRN (Reason: Wheezing) atorvastatin 40 mg Tablet 40 mg PO HS 30 Days Qty: 30 0RF isosorbide mononitrate 30 mg Tablet Extended Release 24 Hr 30 mg PO DAILY 30 Days Qty: 30 0RF clopidogrel 75 mg Tablet 75 mg PO DAILY 30 Days Qty: 30 0RF Problem Reconciliation Problems Reviewed?: Yes Patient Discharge Instructions ACTIVITY: Ambulate as tolerated DIET: continue same diet Print Language: [place] Providers Primary Care Provider: Paula Coats Admit Provider: Eros Fam Attending Provider: Eros Fam
--- NOTE | 2024-01-05 13:17 | CARE MANAGER ---
Attempted to contact patient related to hospital discharge. The phone number on file is not correct and they do not know his new phone number. No other numbers located in the chart. ZAHEER Lozada
== END 2024-01-01 21:20 | disposition home or self-care (01) ==
PROVIDERS: Internal Medicine; Admitting Provider Student in an Organized Health Care Education/Training Program; PCP Nurse Practitioner; Visit Provider Student in an Organized Health Care Education/Training Program
DX: F10.220 Alcohol dependence with intoxication, uncomplicated (principal); Z95.1 Presence of aortocoronary bypass graft; I25.110 Atherosclerotic heart disease of native coronary artery with unstable angina pectoris; F17.210 Nicotine dependence, cigarettes, uncomplicated; Z79.899 Other long term (current) drug therapy; Z95.5 Presence of coronary angioplasty implant and graft; J44.9 Chronic obstructive pulmonary disease, unspecified; I21.4 Non-ST elevation (NSTEMI) myocardial infarction
CPT/HCPCS: 36415; 80048; 83735; 84484; 85025; 85730; 93308; 93459; 94640; 99152; C1725; C1760; C1769; C1894; G0378; J1200; J1644; J2250; J3010; J3475; J7613; Q9967

== ENCOUNTER 2024-01-26 17:26 | Emergency (ER) | payer OTHER, SELFPAY ==
[2024-01-26 17:26] VITALS: BP 117/62; PULSE 72; RESP 18; TEMP 36.7; O2SAT 99; BMI 26.6
--- NOTE | 2024-01-26 17:30 | ECG_ITS ---
APPROVED REPORT Exam: Resting ECG HR:78 bpm ECG Measurements Heart Rate 78 AXES PA 165 P 69 QRSd 149 QRS 80 QT 383 T 72 QTc 416 Conclusion SINUS RHYTHM RIGHT BUNDLE BRANCH BLOCK [120+ ms QRS DURATION, UPRIGHT V1, 40+ ms S IN I/aVL/V4/V5/V6] ABNORMAL ECG Electronically signed by : JUANITA CARBONE, 01/27/2024 00:47:01
[2024-01-26 17:35] VITALS: BP 117/62; PULSE 89; RESP 23; O2SAT 95
[2024-01-26 18:06] VITALS: BP 126/70; PULSE 88; RESP 19; O2SAT 96
--- NOTE | 2024-01-26 18:25 | XR_ITS ---
PROCEDURE INFORMATION: Exam: XR Chest Exam date and time: 01/26/2024 6:28 PM Age: 53 years old Clinical indication: Shortness of breath; Additional info: SOA TECHNIQUE: Imaging protocol: Radiologic exam of the chest. Views: 2 views. COMPARISON: No relevant prior studies available. FINDINGS: Lungs: Lungs are mildly hyperexpanded, with flattening of the diaphragm, compatible with chronic obstructive pulmonary physiologic changes. No focal consolidations or pulmonary edema. Pleural spaces: Unremarkable. No pleural effusion. No pneumothorax. Heart/Mediastinum: Normal. Bones/joints: Changes of prior sternotomy and CABG. IMPRESSION: No acute cardiopulmonary abnormality.
--- NOTE | 2024-01-26 18:28 | [facility].EDCP ---
Discharge Plan Disposition Patient Disposition: Home, Self-Care Condition: Good Prescriptions Prescriptions: New prednisone 20 mg tablet 40 mg PO DAILY 3 Days Qty: 6 0RF azithromycin 500 mg tablet 500 mg PO DAILY 3 Days Qty: 3 0RF No Action montelukast 10 mg tablet 10 mg PO PM metoprolol succinate 25 mg tablet extended release 24 hr 25 mg PO DAILY losartan-hydrochlorothiazide 100-12.5 mg tablet 1 tab PO DAILY Trelegy Ellipta 100-62.5-25 mcg blister with device 1 inh INHALATION DAILY albuterol sulfate 2.5 mg /3 mL (0.083 %) solution for nebulization 2.5 mg inhalation Q6HP PRN (Reason: Wheezing) levothyroxine 100 mcg tablet 100 mcg PO DAILYDM aspirin 81 mg tablet,chewable 81 mg PO DAILY Patient Comments: Chew 1 tablet Daily. chew and swallow albuterol sulfate [Ventolin HFA] 90 mcg/actuation HFA aerosol inhaler 2 puff INHALATION Q4HP PRN (Reason: Wheezing) atorvastatin 40 mg Tablet 40 mg PO HS 30 Days Qty: 30 0RF isosorbide mononitrate 30 mg Tablet Extended Release 24 Hr 30 mg PO DAILY 30 Days Qty: 30 0RF clopidogrel 75 mg Tablet 75 mg PO DAILY 30 Days Qty: 30 0RF Referrals Follow up/Referrals: Provider,Referral, MD [Primary Care Provider] - See instructions Activity Restrictions/Add. Instructions Additional Instructions/Restrictions: You were evaluated in the emergency department today. Please use the inhaler provided to you every 6 hours as needed for wheezing. 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 Follow-up very closely with your primary care provider for reassessment. Return to the emergency department for new or worsening symptoms Clinical Impressions Clinical Impression: Acute exacerbation of chronic obstructive pulmonary disease Stand Alone Forms Stand Alone Forms: Work/School Release Instructions Patient Instructions: DI for Chronic Obstructive Pulmonary Disease Print Language Print Language: Stateless Discharge ED Provider: Ana Paula Lovelace HPI General Chief Complaint: Shortness of Breath/Dyspnea Stated Complaint: SOB Time Seen by Provider: 01/26/24 17:41 Mode of Arrival: EMS Source of Information: Patient and EMS Limitations: No Limitations Description of Symptoms (Recalled from ER Triage Doc. by RN): [email or web address] History of Present Illness HPI narrative: This patient is a 53-year-old male with a history of COPD, CAD status post CABG, alcohol use presenting to the emergency department for evaluation with concern for shortness of breath. Patient notes that it started several hours ago. He notes recent increased cough and sputum production concerning for flareup of his COPD. No chest pain noted. No fevers, chills, calf pain or swelling, or other concerns noted. He also ran out of his inhaler Related Data Home Medications ?Medication ?Instructions ?Recorded ?Confirmed fluticasone fur. 100 mcg-umeclid 1 inh inhalation DAILY 12/20/23 01/01/24 62.5 mcg-vilant 25 mcg inhalat.powder (Trelegy Ellipta) losartan 100 1 tab PO DAILY 12/20/23 01/01/24 mg-hydrochlorothiazide 12.5 mg tablet metoprolol succinate 25 mg 25 mg PO DAILY 12/20/23 01/01/24 tablet,extended release 24 hr montelukast 10 mg tablet 10 mg PO PM 12/20/23 01/01/24 albuterol sulfate 2.5 mg/3 mL 2.5 mg inhalation Q6HP PRN Wheezing 12/21/23 01/01/24 (0.083 %) solution for nebulization albuterol sulfate 90 mcg/actuation 2 puff inhalation Q4HP PRN Wheezing 12/21/23 01/01/24 aerosol inhaler (Ventolin HFA) aspirin 81 mg chewable tablet 81 mg PO DAILY 12/21/23 01/01/24 levothyroxine 100 mcg tablet 100 mcg PO DAILYDM 12/21/23 01/01/24 Previous Rx's ?Medication ?Instructions ?Recorded atorvastatin 40 mg tablet 40 mg PO HS 30 days #30 tabs 12/22/23 clopidogrel 75 mg tablet 75 mg PO DAILY 30 days #30 tabs 12/22/23 isosorbide mononitrate 30 mg 30 mg PO DAILY 30 days #30 tabs 12/22/23 tablet,extended release 24 hr azithromycin 500 mg tablet 500 mg PO DAILY 3 days #3 tabs 01/26/24 prednisone 20 mg tablet 40 mg (2 x 20 mg) PO DAILY 3 days 01/26/24 #6 tabs Allergies Allergy/AdvReac Type Severity Reaction Status Date / Time strawberry AdvReac Verified 02/04/20 15:49 [facility] Disclaimer: The information contained in this section may have been updated after the patient was seen, as this information can be updated by other users. Medical History Amputation of arm, right Emphysema with chronic bronchitis Asthma Myocardial infarction Hypertension COPD (chronic obstructive pulmonary disease) Surgical History History of heart artery stent History of open heart surgery History of right heart catheterization (RHC) Social History Smoking Status: Current every day smoker tobacco type: cigarettes packs per day: 1 and e-cigarettes smoking status start date: 1985 smoked: 38 quit status: not considering quitting alcohol intake: current alcohol intake frequency: 3 or more drinks per day current occupational status: employed and other Travel in the last 8 weeks: None household members: other housing: other Other Medical History Have you received the Flu Vaccine for this season: No Have you received the Pneumonia Vaccine: No ROS Obtained: Yes All systems reviewed & no additional complaints except as documented Physical Exam General General appearance: alert and in no apparent distress Head Head exam: atraumatic and normocephalic Eye Eye exam: Present normal appearance, PERRL and EOMI ENT ENT exam: Present normal exam, normal oropharynx, mucous membranes moist and normal external ear exam Neck Neck exam: Present normal inspection, full ROM and trachea midline; Absent tenderness Chest Chest inspection: Present normal inspection and symmetric chest wall rise; Absent tenderness Respiratory Respiratory exam: Present wheezes, accessory muscle use and other (Very mild accessory muscle use and wheezing); Absent respiratory distress or stridor Cardiovascular Cardiovascular exam: Present regular rate and normal rhythm Abdominal Exam Abdominal exam: Present soft; Absent distention, tenderness or guarding Extremities Exam Extremities exam: Present normal inspection, full ROM and normal capillary refill; Absent tenderness or edema Back Exam Back exam: Present normal inspection and full ROM; Absent tenderness Neurological Exam Neurological exam: Present alert, oriented X3, CN II-XII intact and normal gait; Absent motor sensory deficit Psychiatric Psychiatric exam: Present normal affect and normal mood Skin Skin exam: Present warm and dry HEART Score HEART Score HEART Score assessment performed?: Yes History (anamnesis): Slightly suspicious ECG: Normal Age: 45-65 years Risk factors: Atherosclerosis history Troponin: </= normal limit HEART Score: 3 Critical Care Critical Care Time Critical Care Time: No Medical Decision Making Hiro Inquiry Pt receiving controlled substance: No Vital Signs Vital Signs: 01/26/24 17:26 01/26/24 17:35 01/26/24 18:06 Temperature 98.1 F Temperature Source Oral Pulse Rate 89 88 Pulse Rate [Left] 72 Respiratory Rate 18 23 19 Blood Pressure 117/62 126/70 Blood Pressure [Right Arm] 117/62 Blood Pressure Mean 71 88 Blood Pressure Mean [Right Arm] 80 Blood Pressure Source 02 Sat by Pulse Oximetry 99 95 96 Oxygen Delivery Method Room Air 01/26/24 18:30 01/26/24 19:00 01/26/24 20:41 Temperature 98.0 F Temperature Source Oral Pulse Rate 95 H 78 Pulse Rate [Left] Respiratory Rate 18 18 18 Blood Pressure 103/69 L 119/75 137/76 Blood Pressure [Right Arm] Blood Pressure Mean 84 Blood Pressure Mean [Right Arm] Blood Pressure Source Automatic Cuff 02 Sat by Pulse Oximetry 99 Oxygen Delivery Method Room Air Lab Data Labs: Lab Results 01/26/24 17:40: WBC 4.6 L, RBC 3.93 L, Hgb 13.0 L, Hct 39.1 L, MCV 99.6 H, MCH 33.1 H, MCHC 33.3, RDW 13.4, Plt Count 201, MPV 7.6, Neut % (Auto) 56.9, Lymph % (Auto) 27.3, Evans % (Auto) 10.2 H, Eos % (Auto) 4.2, Baso % (Auto) 1.3, Neut # (Auto) 2.6, Lymph # (Auto) 1.3, Evans # (Auto) 0.5, Eos # (Auto) 0.2, Baso # (Auto) 0.1, D-Dimer 0.44, Sodium 143, Potassium 4.4, Chloride 107, Carbon Dioxide 23, Anion Gap 17.4 H, BUN 5 L, Creatinine 0.70, Estimated Creat Clear 132, Estimated GFR 118, Est GFR ( Amer) 142, Glucose 87, Calcium 8.7, Total Bilirubin 0.4, AST 43, ALT 25, Alkaline Phosphatase 57, Troponin I < 0.01, NT-Pro-B Natriuret Pep 180 H, Total Protein 7.0, Albumin 3.9, Globulin 3.1, Albumin/Globulin Ratio 1.3, HIV 1&2 Antibody Rapid Nonreactive 01/26/24 18:30: SARS-CoV-2 (PCR) Not detected, Influenza A Untype (PCR) Not detected, Influenza Type B (PCR) Not detected 01/26/24 17:40 01/26/24 17:40 Response Orders (Tests/Meds): ED MEDICATIONS Discontinued Medications Generic Name Dose Route Start Last Admin Trade Name Rocco PRN Reason Stop Dose Admin Albuterol/Ipratropium 9 ml 01/26/24 18:25 01/26/24 18:52 Ipratropium/Albuterol 3 Ml Neb 01/26/24 18:26 9 ml ONCE ONE Administration Albuterol/Ipratropium 2 puff 01/26/24 20:13 01/26/24 20:33 Combivent 20mcg/100mcg Respimat Inhaler 01/26/24 20:14 2 puff ONCE ONE Administration Azithromycin 500 mg 01/26/24 20:13 01/26/24 20:37 Azithromycin 250mg Tablet PO 01/26/24 20:14 500 mg ONCE ONE Administration Prednisone 40 mg 01/26/24 18:25 01/26/24 18:51 Prednisone 20mg Tab PO 01/26/24 18:26 40 mg ONCE ONE Administration ORDERS Category Date Time Status CXR 2 view (NOT portable) [XR chest 2V] Stat Exams 01/26/24 18:25 Completed BNP [NT Pro Brain Natriuretic Pep.] Stat Lab 01/26/24 17:40 Completed CBC [Complete Blood Count Auto Diff] Stat Lab 01/26/24 17:40 Completed CMP [Comprehensive Metabolic Panel] Stat Lab 01/26/24 17:40 Completed D-Dimer Stat Lab 01/26/24 17:40 Completed HIV (1&2) Antibody Rapid Stat Lab 01/26/24 17:40 Completed Hep C Ab with Reflex to RNA Stat Lab 01/26/24 17:40 Received Rapid PCR Covid and Flu A/B Stat Lab 01/26/24 18:30 Completed Trop I [Troponin I] Stat Lab 01/26/24 17:40 Completed ECG Data Tracing #1: Attestation: I reviewed this ECG and interpreted as documented below: ECG Narrative: Normal sinus rhythm with a ventricular rate of 78 bpm B right bundle branch block. No acute ST changes concerning for ischemia ECG initial impression date: 01/26/24 ECG initial impression time: 17:31 MDM Narrative Medical Decision Narrative: In summary, this patient is a 53-year-old male presenting to the Emergency Department for evaluation of cough/shortness of breath. Differential diagnoses considered include but are not limited to COPD exacerbation, pneumonia, bronchitis, viral syndrome, ACS, dysrhythmia, PE, respiratory failure. Ruling out the most morbid conditions drove assessment. It should be noted patient's history includes COPD which is not at goal therapy. This complicates all aspects of care by increasing patient's risk for morbidity. I reviewed patient's past medical records and noted cardiac catheterization almost 1 month ago. On exam, the patient sitting upright in no acute distress. He does have very mild accessory muscle use and faint wheezing, but otherwise exam is reassuring. Workup included CBC, CMP, troponin, D-dimer, BNP, chest x-ray, EKG. EKG obtained is reassuring. I independently interpreted x-ray prior to the radiologist read and noted no acute focal consolidation concerning for pneumonia. Please see their read for final interpretation. Labs were obtained that demonstrated negative D-dimer, negative troponin, no other acutely concerning abnormalities. On reassessment, patient had good improvement after administration of DuoNeb's. I gave him a new inhaler as well as prednisone and azithromycin to treat presumed COPD exacerbation. Ultimately, he has improved work of breathing and normal vitals on room air. Given this, I feel that he is appropriate for discharge home with management of COPD exacerbation. Strict return precautions were given and he was discharged after all questions were answered
[2024-01-26 18:30] VITALS: BP 103/69; PULSE 95; RESP 18; O2SAT 99
[2024-01-26 18:37] LABS: Coronavirus 19, PCR Not Detected (NotDetected); Influenza A, PCR Not Detected (NotDetected); Influenza B, PCR Not Detected (NotDetected)
--- NOTE | 2024-01-26 18:37 | PC.NURSE ---
PT TO RADIOLOGY
--- NOTE | 2024-01-26 18:41 | PC.NURSE ---
PT RETURNED FROM RADIOLOGY
[2024-01-26] MEDS: predniSONE 20MG TAB 40 MG PO (18:51)
[2024-01-26] MEDS: IPRATROPIUM/ALBUTEROL 3 ML NEB 9 ML IH (18:52)
[2024-01-26 19:00] VITALS: BP 119/75; RESP 18
[2024-01-26 19:14] LABS: HIV (1&2) Antibody Rapid NONREACTIVE (NONREACTIVE)
[2024-01-26 19:22] LABS: Basophils # 0.1 K/mm3 (0-0.2); Basophils % 1.3 % (0.1-2.0); Eosinophils # 0.2 K/mm3 (0.0-0.4); Eosinophils % 4.2 % (0.1-12.0); Hematocrit 39.1 % (42.0-52.0); Lymphocytes # 1.3 K/mm3 (0.7-4.5); Lymphocytes % 27.3 % (10-50); Mean Corpuscular HGB Conc 33.3 g/dL (31.8-35.4); Mean Corpuscular Hemoglobin 33.1 pg (27.0-31.2); Mean Corpuscular Volume 99.6 fl (80-94); Mean Platelet Volume 7.6 fl (7.4-10.4); Monocytes # 0.5 K/mm3 (0.1-1.0); Monocytes % 10.2 % (1.7-9.3); Neutrophils # 2.6 K/mm3 (1.8-7.8); Neutrophils % 56.9 % (37.0-80.0); Platelet Count 201 K/mm3 (142-424); Red Blood Count 3.93 M/mm3 (4.60-6.20); Red Cell Distribution Width 13.4 % (11.5-17.5); White Blood Count 4.6 K/mm3 (4.8-10.8)
[2024-01-26 19:24] LABS: Albumin Level 3.9 g/dl (3.5-5.0); Chloride 107 mmol/L (98-107); Potassium 4.4 mmoL/L (3.5-5.1); Sodium 143 mmol/L (136-145)
[2024-01-26 19:27] LABS: Alanine Aminotransferase 25 U/L (12-78); Albumin/Globulin Ratio 1.3 (1.1-1.8); Alkaline Phosphatase 57 U/L (38-126); Anion Gap 17.4 mEq/L (5-15); Aspartate Amino Transferase 43 U/L (17-59); Bilirubin,Total 0.4 mg/dl (0.2-1.3); Blood Urea Nitrogen 5 mg/dl (9-20); Calcium 8.7 mg/dl (8.4-10.2); Carbon Dioxide 23 mmol/L (22.0-30.0); Creatinine Clearance Estimated 132 mL/min (50-200); Estimated Glomerular Filt Rate 118 ml/min (>60); GFR (African American) 142 ML/MIN (>60); Globulin 3.1 g/dL (1.3-3.2); Glucose 87 mg/dl (74-100)
[2024-01-26 19:36] LABS: D-Dimer 0.44 ug/mL (0.0-0.5)
--- NOTE | 2024-01-26 19:58 | PC.NURSE ---
Contacted lab in regards to the status of a tropoin and BNP for this patient they stated it would be another 10 mins. Relayed this to Dr. Lovelace
[2024-01-26 20:09] LABS: NT Pro Brain Natriuretic Pep. 180 pg/mL (0-125)
[2024-01-26 20:10] LABS: Troponin I < 0.01 ng/ml (0.00-0.034)
[2024-01-26] MEDS: COMBIVENT 20MCG/100MCG RESPIMAT INHALER 2 PUFF IH (20:33)
[2024-01-26] MEDS: AZITHROMYCIN 250MG TABLET 500 MG PO (20:37)
[2024-01-26 20:41] VITALS: BP 137/76; PULSE 78; RESP 18; TEMP 36.7; O2SAT 98
[2024-01-28 05:15] LABS: HCV Ab Non Reactive (Non Reactive)
== END 2024-01-26 20:49 | disposition home or self-care (01) ==
PROVIDERS: Emergency Provider Emergency Medicine
DX: J44.1 Chronic obstructive pulmonary disease with (acute) exacerbation (principal)
CPT/HCPCS: 71046; 80053; 83880; 84484; 85025; 85378; 86803; 87389; 87636; 93005; 99284; J7620

== ENCOUNTER 2025-01-17 20:13 | Observation (INO) | payer OTHER, SELFPAY ==
[2025-01-17 21:02] VITALS: BP 148/87; PULSE 86; RESP 17; TEMP 36.4; O2SAT 100; BMI 26.0
--- NOTE | 2025-01-17 21:02 | ECG_ITS ---
APPROVED REPORT Exam: Resting ECG HR:85 bpm ECG Measurements Heart Rate 85 AXES GA 176 P 67 QRSd 155 QRS 68 QT 392 T 55 QTc 434 Conclusion SINUS RHYTHM LEFT ATRIAL ENLARGEMENT [-0.15mV P-WAVE IN V1/V2] RIGHT BUNDLE BRANCH BLOCK [120+ ms QRS DURATION, UPRIGHT V1, 40+ ms S IN I/aVL/V4/V5/V6] ABNORMAL ECG UNCONFIRMED REPORT Electronically signed by : Jc Al MD 01/18/2025 07:57:02
--- NOTE | 2025-01-17 21:02 | XR_ITS ---
PROCEDURE INFORMATION: Exam: XR Chest Exam date and time: 01/17/2025 9:26 PM Age: 54 years old Clinical indication: Shortness of breath TECHNIQUE: Imaging protocol: Radiologic exam of the chest. Views: 1 view. COMPARISON: CR XR CHEST 2V 01/26/2024 6:28 PM FINDINGS: Lungs: Unremarkable. No consolidation. Pleural spaces: Unremarkable. No pleural effusion. No pneumothorax. Heart/Mediastinum: Unremarkable. No cardiomegaly. Bones/joints: Unremarkable. Changes of sternotomy are noted. Other findings: Patient rotated. IMPRESSION: No acute findings.
--- NOTE | 2025-01-17 21:10 | P.HP_ITS ---
<Statement entered by Eros Fam MD - 01/21/25 14:19> Agree with the plan of care as outlined by the [employer]. History of Present Illness *Admission Date: 01/17/25 *Reason for visit:: Dizziness *History of present illness: This is a 54-year-old male who has a past medical history significant for coronary artery disease, asthma, COPD, defect, [place], and hypertension who presents from [facility] due to elevated troponins. According to ER pro vider at [facility], patient presented with a chief complaint of dizziness and his troponin initial value was 122. Patient recently had an ischemic workup by his weatherization coordinator that showed reversible signs of ischemia; moreover, patient was scheduled for a left heart cath which he did not present on the scheduled date. Patient's case was discussed with on-call tower dragline operator who recommended patient be transferred to [facility] for further management. As result, patient has been admitted for further management. During my evaluation of the patient, patient states he has had no chest pain but has had significant shortness of breath. He mentions that he does have a history of COPD and he has been experiencing wheezing and increased shortness of air for the past 48 hours. Patient states he is prescribed Trelegy to manage and albuterol. Additionally, patient states he has a home nebulizer. None of these interventions will help him with his shortness of breath. Patient is currently prescribed Ranexa, beta-giovani, and statin coupled with dual platelet therapy for known coronary artery disease. Patient does have a history of coronary artery bypass and graft. Patient informed nursing staff that he drinks daily with his last known drink yesterday and he occasionally uses crack cocaine. He is currently denying any chest pain, lightheadedness, dizziness, fever, chills, rigors, nausea, vomiting or diarrhea. He does endorse having some wheezing. Additional pertinent vitals obtained at [facility] include a sodium of 132, chloride of 94, blood glucose 133, and patient's troponin was initially 122 and increased to 126. EKG performed at [facility] showed sinus rhythm, right bundle branch block, QTc of 473, normal axis and no evidence of active STEMI [facility] Disclaimer: The information contained in this section may have been updated after the patient was seen, as this information can be updated by other users. Medical History Amputation of arm, right Emphysema with chronic bronchitis Asthma Myocardial infarction Hypertension COPD (chronic obstructive pulmonary disease) Surgical History History of heart artery stent History of open heart surgery History of right heart catheterization (RHC) Social History (Updated 01/17/25 @ 20:55 by Prudence Griffin RN) Smoking Status: Current every day smoker tobacco type: cigarettes packs per day: 1 pack-years: 37 and e-cigarettes smoking status start date: 1985 smoked: 38 quit status: not considering quitting alcohol intake: current alcohol intake frequency: 3 or more drinks per day current occupational status: employed and other Travel in the last 8 weeks?: None household members: other housing: other Other Medical History Have you received the Flu Vaccine for this season: Yes Have you received the Pneumonia Vaccine: Yes Review of Systems Review of Systems Review of systems:: pertinent systems reviewed and negative unless documented below Constitutional Constitutional: Reports system reviewed and no additional complaints, except as documented Eyes Eyes: Reports system reviewed and no additional complaints, except as documented ENT Ears, Nose, Mouth, and Throat: Reports system reviewed and no additional complaints, except as documented *Cardiovascular Cardiovascular: Reports dyspnea *Respiratory Respiratory: Reports dyspnea *Gastrointestinal Gastrointestinal: Reports system reviewed and no additional complaints, except as documented *Genitourinary Genitourinary: Reports system reviewed and no additional complaints, except as documented *Musculoskeletal Musculoskeletal: Reports deformity Integumentary/Breasts Skin/Breast: Reports system reviewed and no additional complaints, except as documented *Neurologic Neurologic: Reports system reviewed and no additional complaints, except as documented Psychiatric Psychiatric: Reports system reviewed and no additional complaints, except as documented Endocrine Endocrine: Reports system reviewed and no additional complaints, except as documented Hematologic/Lymphatic Hematologic/Lymphatic: Reports system reviewed and no additional complaints, except as documented Allergic/Immunologic Allergic/Immunologic: Reports system reviewed and no additional complaints, except as documented Meds Home Medications and Allergies Home Medications ?Medication ?Instructions ?Recorded ?Confirmed ?Type albuterol sulfate 2.5 mg/3 mL 2.5 mg inhalation Q6HP P RN 01/18/25 01/18/25 History (0.083 %) solution for nebulization Shortness Of Breat h aspirin 81 mg chewable tablet 81 mg PO DAILY 01/18/25 01/18/25 History atorvastatin 80 mg tablet 80 mg PO HS 01/18/25 5 History buspirone 10 mg tablet 10 mg PO TID 01/18/25 History cetirizine 10 mg tablet (Allergy 10 mg PO DAILY 01/18/25 History Relief (cetirizine)) doxycycline hyclate 100 mg tablet 100 mg PO BID 3 days #6 tabs 01/18/25 Rx fluticasone fur. 100 mcg-umeclid 1 inh inhalation LORRAINE Y 01/18/25 01/18/25 History 62.5 mcg-vilant 25 mcg inhalat.powder (Trelegy Ellipta) folic acid 1 mg tablet 1 mg PO DAILY 01/18/2501/18 History levothyroxine 100 mcg tablet 100 mcg PO DAILY 01/18/25 01/18/25 History losartan 100 1 tab PO DAILY 01/18/2508/07 History mg-hydrochlorothiazide 12.5 mg tablet metoprolol succinate 25 mg 25 mg PO DAILY 01/18/2508/07 History tablet,extended release 24 hr mirtazapine 15 mg tablet 15 mg PO HS 01/18/25 5 History montelukast 10 mg tablet 10 mg PO HS 01/18/25 5 History nicotine 21 mg/24 hr daily 21 mg transdermal DAILY 08/0701/18/25 History transdermal patch pantoprazole 40 mg tablet,delayed 40 mg PO DAILY 01/1801/18/25 History release prednisone 20 mg tablet 40 mg (2 x 20 mg) PO DAILY # 6 tabs 01/18/25 Rx thiamine HCl (vitamin B1) 100 mg 100 mg PO DAILY 01/1801/18/25 History tablet trazodone 50 mg tablet 50 - 100 mg PO HSP PRN Insom lionel 01/18/25 01/18/25 History New Prescriptions to Start Prescriptions: doxycycline hyclate Crystal Flores prednisone Crystal Flores Allergies Allergy/AdvReac Type Severity Reaction Status Date / Time strawberry AdvReac Verified 02/04/20 15:49 Exam Data for Last 24 hours Vital signs and Labs for Last 24 Hours: Temp Pulse Resp BP Pulse Ox O2 Del Method 97.6 F 86 17 148/87 H 100 Room Air 01/17/25 21:02 01/17/25 21:02 01/17/25 21:02 01/17/25 21:02 01/17/25 21:02 01/17/25 21:02 I & O for Last 24 hours: Intake & Output 01/14/25 01/15/25 01/16/25 01/17/25 23:59 22:59 23:59 23:59 Weight 75.523 kg Constitutional Constitutional: no acute distress, thin and cooperative *Routine HEENT Exam Head: Present normocephalic and atraumatic Eye: Present EOMI and PERRL ENT: Present mucous membranes moist *Routine Neck Exam Neck: Present supple and trachea midline *Routine Respiratory Exam Respiratory: Present wheezes, diminished air movement, able to speak in complete sentences and symmetric chest movement *Routine Cardiovascular Exam Cardiovascular: Present RRR, Normal S1 and Normal S2 *Routine Abdominal Exam Abdominal: Present soft and normoactive bowel sounds *Routine Rectal Exam Rectal:: deferred *Routine Genitalia Exam Genitalia:: deferred *Routine Extremities Exam Extremities: Present full ROM Routine Back/Spine/Pelvis Exam Back/Spine: Present full ROM *Routine Skin Exam Skin: Present intact, dry and warm *Routine Neurological Exam Neurological: Present alert, oriented X3, CN II-XII intact and moving all extremities Routine Psychiatric Exam Psychiatric: Present normal affect, normal thought process, cooperative and good judgment H&P: Result Impressions 54-year-old male who has known coronary artery disease with recent provocative workup that shows reversible signs of ischemia transition to [facility] for further management. Also has findings consistent with COPD exacerbation Assessment and Plan *Assessment and plan (1) CAD (coronary artery disease): Status: Acute Qualifiers: Associated angina: with unstable angina Coronary Disease-Associated Artery/Lesion type: unspecified vessel or lesion type [place] vs. transplanted heart: [place] heart Qualified Code(s): I25.110 - Atherosclerotic heart disease of [place] coronary artery with unstable angina pectoris Category: Medical Code(s): I25.10 - Atherosclerotic heart disease of [place] coronary artery without angina pectoris (2) NSTEMI (non-ST elevated myocardial infarction): Status: Acute Category: Medical Code(s): I21.4 - Non-ST elevation (NSTEMI) myocardial infarction (3) Alcohol dependence: Status: Acute Qualifiers: Complication of substance-induced condition: uncomplicated Substance use status: with intoxication Qualified Code(s): F10.220 - Alcohol dependence with intoxication, uncomplicated Category: Medical Code(s): F10.20 - Alcohol dependence, uncomplicated (4) History of cocaine use: Status: Acute Category: Medical Code(s): F14.91 - Cocaine use, unspecified, in remission (5) COPD (chronic obstructive pulmonary disease): Status: Acute Qualifiers: COPD type: unspecified COPD Qualified Code(s): J44.9 - Chronic obstructive pulmonary disease, unspecified Category: Medical Code(s): J44.9 - Chronic obstructive pulmonary disease, unspecified Plan Assessment: NSTEMI Coronary artery disease - Will consult cardiology - Will continue to trend patient's troponin - Obtain EKG - Make patient n.p.o. after midnight - Obtain 2D echo COPD exacerbation - Obtain chest x-ray - DuoNebs every 6 hours - Will give 125 mg of Solu-Medrol IV now and then 40 mg IV twice daily - 10 mg Singulair p.o. daily - 100 mg doxycycline p.o. twice daily EtOH dependency Recent cocaine usage - Will monitor for withdrawal - Place patient on CIWA protocol - Obtain urine drug screen Plan: Admit patient to the MedSurg unit in a on telemetry CIWA protocol Saline lock Vital signs every 4 hours Case management Cardiac diet now and then n.p.o. after midnight CMP, CBC, magnesium now CBC/BMP daily Lipid panel in a.m. 40 mg Lovenox subcu daily for DVT prophylax 21 mg nicotine patch daily 4 mg Zofran IV push every 8 hours for nausea vomit Full code I have discussed this case with attending physician Dr. Fam and I look forward to more input
[2025-01-17] MEDS: IPRATROPIUM/ALBUTEROL 3 ML NEB IH ×2 (21:34→23:34)
[2025-01-17] MEDS: NICOTINE 21MG/24HR PATCH 21 MG TD (21:55)
[2025-01-17] MEDS: diazePAM 5MG TABLET 5 MG PO (21:55)
[2025-01-17] MEDS: METHYLPREDNISOLONE SOD SUCC 125MG VIAL 125 MG IV (21:55)
[2025-01-17 21:57] LABS: Albumin Level 5.1 g/dl (3.5-5.0); Chloride 97 mmol/L (98-107); Potassium 3.5 mmoL/L (3.5-5.1); Sodium 132 mmol/L (136-145)
[2025-01-17 21:59] LABS: Alanine Aminotransferase 20 U/L (12-78); Aspartate Amino Transferase 37 U/L (17-59); Blood Urea Nitrogen 10 mg/dl (9-20); Creatinine Clearance Estimated 127 mL/min (50-200); Creatinine,Serum 0.70 mg/dl (0.66-1.25); Estimated Glomerular Filt Rate 117 ml/min (>60); GFR (African American) 142 ML/MIN (>60)
[2025-01-17 22:00] LABS: Albumin/Globulin Ratio 2.2 (1.1-1.8); Alkaline Phosphatase 95 U/L (38-126); Anion Gap 12.5 mEq/L (5-15); Bilirubin,Total 1.3 mg/dl (0.2-1.3); Calcium 8.9 mg/dl (8.4-10.2); Carbon Dioxide 26 mmol/L (22.0-30.0); Globulin 2.3 g/dL (1.3-3.2); Glucose 100 mg/dl (74-100); Magnesium 1.7 mg/dl (1.6-2.3); Total Protein,Serum 7.4 g/dl (6.3-8.2)
[2025-01-17] MEDS: BENZONATATE 100MG CAPSULE 200 MG PO (22:54)
[2025-01-17 23:36] VITALS: PULSE 84; PULSE 85
[2025-01-18] VITALS (22 sets, daily range): BP systolic 110–149; BP diastolic 71–97; PULSE 60–110; RESP 16–20; TEMP 35.9–36.8; O2SAT 91–100; BMI 26.1
[2025-01-18 00:55] LABS: Troponin I 0.02 ng/ml (0.00-0.034)
--- NOTE | 2025-01-18 05:13 | PC.NURSE ---
med rec not completed, patient unsure of meds
[2025-01-18 06:16] LABS: Hematocrit 46.7 % (42.0-52.0); Hemoglobin 16.0 g/dL (14.1-18.0); Immature Granulocytes % 0.2 %; Mean Corpuscular HGB Conc 34.3 g/dL (31.8-35.4); Mean Corpuscular Hemoglobin 30.6 pg (27.0-31.2); Mean Corpuscular Volume 89.3 fl (80-94); Nucleated Red Blood Cells % 0 %; Platelet Count 203 K/mm3 (142-424); Red Blood Count 5.23 M/mm3 (4.60-6.20); Red Cell Distribution Width-SD 43.8 fL; White Blood Count 6.6 K/mm3 (4.8-10.8)
[2025-01-18] MEDS: IPRATROPIUM/ALBUTEROL 3 ML NEB IH ×4 (06:20→23:14)
[2025-01-18 06:41] LABS: Troponin I < 0.01 ng/ml (0.00-0.034)
[2025-01-18 06:47] LABS: Potassium 4.3 mmoL/L (3.5-5.1); Sodium 134 mmol/L (136-145)
[2025-01-18 06:48] LABS: Anion Gap 14.3 mEq/L (5-15); Blood Urea Nitrogen 11 mg/dl (9-20); Calcium 9.9 mg/dl (8.4-10.2); Carbon Dioxide 24 mmol/L (22.0-30.0); Chloride 100 mmol/L (98-107); Cholesterol 268 mg/dl (140-200); Creatinine Clearance Estimated 111 mL/min (50-200); Creatinine,Serum 0.80 mg/dl (0.66-1.25); Estimated Glomerular Filt Rate 100 ml/min (>60); GFR (African American) 121 ML/MIN (>60); Glucose 158 mg/dl (74-100); HDL Cholesterol 78 mg/dl (40-60); Triglycerides 166 mg/dl (30-150)
[2025-01-18 07:12] LABS: Total Cells Counted 100
[2025-01-18 07:14] LABS: RBC Morphology Normal
--- NOTE | 2025-01-18 09:00 | CA_ITS ---
APPROVED REPORT EXAM: Comprehensive 2D, Doppler, and color-flow Echocardiogram Research Mechanic: HUMBERTO Brady, RVS Ht: 5 ft 7 in Wt: 166lbs BSA: 1.87 BP: 148/87 mmHg Indications: NSTEMI, CAD-CABG, Smoker, COPD, HTN Echo Enhancing Agent Comments: Patient had uncontrolled coughing throughout exam. 2D Dimensions Left Atrium 3.39 cm LA Volume 28.10 mL LA Volume Index 15.990523 mL/m2 (M/F) 16-34 M-Mode Dimensions RVDd 2.58 cm (0.9-2.6) LA Diam 3.77 cm (1.9-4.0) LVDd 4.59 cm (3.5-5.7) LVDs 3.11 cm (3.5-5.7) IVSd 1.18 cm (0.6-1.1) PWd 1.25 cm (0.6-1.1) EF (Teich) 60.50% EPSs 1.75 cm FS 32.20% EDV (Teich) 96.80 mL TAPSE 1.53 (<1.7) ESV (Teich) 38.20 mL LV Diastology E Decel Time 173 (160-240 msec) E/A Ratio 1.03 MED A' 7.80 cm/s LAT A' 6.20 cm/s Aortic Valve DEBORA Index 1.87 cm2/m2 AoV Peak Farhat. 125.0 (50-130 cm/s) AO Peak GR. 6.20 mmHg AO Mean GR. 3.10 (<5 mmHg) AO VTI 16.6 (18-25 cm) DEBORA (VTI) 3.58 (2.5-4.5 cm2) Mitral Valve MV A Velocity 63.0 (40-130 cm/s) E/A Ratio 1.03 Left Ventricle The left ventricle is normal size. Left ventricular systolic function is normal. The left ventricular ejection fraction is within the normal range. There is normal left ventricular wall thickness. There is normal LV segmental wall motion. The left ventricular diastolic function is normal. LVEF is 55% Right Ventricle The right ventricle is mildly dilated. The right ventricular systolic function is borderline hypokinetic. Atria The left atrium size is normal. The right atrium size is normal. There is no color Doppler evidence of interatrial shunt. Aortic Valve The aortic valve is mildly thickened. There is no hemodynamically significant aortic valvular stenosis. Trace aortic regurgitation is present. Mitral Valve The mitral valve is normal in structure. No evidence of mitral valve stenosis. Trace mitral regurgitation is present. Tricuspid Valve The tricuspid valve leaflets are thin and pliable. Trace tricuspid regurgitation. There is insufficient TR jet to estimate RVSP. Pulmonic Valve The pulmonary valve is grossly normal in structure. Trace pulmonic valve regurgitation is present. Great Vessels The aortic root is normal in size. IVC is normal in size and collapses >50% with inspiration. Pericardium There is no pericardial effusion. Other Information Study Quality: Fair Conclusion Normal LV systolic function. Mild RV dilation with borderline reduction in RV function. No significant valvular stenosis or regurgitation. Electronically signed by : Nicki Hammer MD 01/18/2025 12:22:18
--- NOTE | 2025-01-18 09:06 | EXP.CARD.CON ---
History of Present Illness History of Present Illness Consult date: 01/18/25 Chief complaint: chest pain Additional Medical History:: 1. CAD with history of multiple stents A. CABG, 2022, [facility], records unavailable B. Cardiac cath, 12/2023, loss of SVG to circumflex/OM. RODRI to circumflex and OM performed. Patent MOE to LAD, SVG to RCA with preserved EF. 2. History of alcohol and crack cocaine use 3. Ex-smoker with COPD 4. Congenital right arm deformity 5. Hypertension A. Echo, 12/2023, normal LVEF with mild RV dilation/dysfunction. Mild LAE with mild MR. 6. Hyperlipidemia History of present illness: This is a 54-year-old male who has a past medical history significant for coronary artery disease, asthma, COPD, defect, [place], and hypertension who presents from [facility] due to elevated troponins. According to ER provider at [facility], patient presented with a chief complaint of dizziness and his troponin initial value was 122. 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 Patient's case was discussed with on-call online affiliate marketing manager who recommended patient be transferred to [facility] for further management. As result, patient has been admitted for further management. During my evaluation of the patient, patient states he has had no chest pain but has had significant shortness of breath. He mentions that he does have a history of COPD and he has been experiencing wheezing and increased shortness of air for the past 48 hours. Patient states he is prescribed Trelegy to manage and albuterol. Additionally, patient states he has a home nebulizer. None of these interventions will help him with his shortness of breath. Patient is currently prescribed Ranexa, beta-giovani, and statin coupled with dual platelet therapy for known coronary artery disease. Patient does have a history of coronary artery bypass and graft. Patient informed nursing staff that he drinks daily with his last known drink yesterday and he occasionally uses crack cocaine. He is currently denying any chest pain, lightheadedness, dizziness, fever, chills, rigors, nausea, vomiting or diarrhea. He does endorse having some wheezing. Additional pertinent vitals obtained at [facility] include a sodium of 132, chloride of 94, blood glucose 133, and patient's troponin was initially 122 and increased to 126. EKG performed at [facility] showed sinus rhythm, right bundle branch block, QTc of 473, normal axis and no evidence of active STEMI The above per Amanuel Espinoza APRN for Hospitalist service The above events confirmed with patient. Patient states that his symptoms he think is from his respiratory issues and not his heart. He states he has felt great since his bypass surgery last year. We did discuss in light of his abnormal stress test proceeding with left heart catheterization and he agrees to proceed. He admits to using crack cocaine as recently as two days ago. He is still drinking as well. [facility] Disclaimer: The information contained in this section may have been updated after the patient was seen, as this information can be updated by other users. Medical History Amputation of arm, right Emphysema with chronic bronchitis Asthma Myocardial infarction Hypertension COPD (chronic obstructive pulmonary disease) Surgical History History of heart artery stent History of open heart surgery History of right heart catheterization (RHC) Social History (Updated 01/17/25 @ 20:55 by Prudence Griffin RN) Smoking Status: Current every day smoker tobacco type: cigarettes packs per day: 1 pack-years: 37 and e-cigarettes smoking status start date: 1985 years smoked: 38 quit status: not considering quitting alcohol intake: current alcohol intake frequency: 3 or more drinks per day current occupational status: employed and other Travel in the last 8 weeks?: None household members: other housing: other Contact w/someone who lives/traveled outside [place] past 30 days?: No Exposure to someone with infectious disease in past 14 days?: No Do you have a fever (greater than 100.4 F or 38 C)?: No Have you tested positive for COVID-19?: No Exposed to someone with COVID-19 in past 14 days?: No Do you have a sore throat?: No Do you have a cough?: No Do you have any weakness?: No Are you experiencing any nausea/vomitting?: No Do you have any diarrhea?: No Are you experiencing any unusual bleeding?: No Do you have any muscle aches/pain?: No Do you have any abdominal pain?: No Are you experiencing loss of taste or smell?: No Review of Systems Review of Systems Review of systems:: pertinent systems reviewed and negative unless documented below *Cardiovascular Cardiovascular: Reports chest pain and Reports dyspnea on exertion *Respiratory Respiratory: Reports dyspnea on exertion and Reports wheezing *Neurologic Neurologic: Reports system reviewed and no additional complaints, except as documented Allergic/Immunologic Allergic/Immunologic: Reports wheezing Exam Data for Last 24 hours Vital signs and Labs for Last 24 Hours: Temp Pulse Resp BP Pulse Ox O2 Del Method 98.2 F 78 18 129/97 H 100 Room Air 01/18/25 07:27 01/18/25 07:27 01/18/25 07:27 01/18/25 07:27 01/18/25 07:27 01/18/25 07:27 Laboratory Results - last 24 hr 01/17/25 21:34: Sodium 132 L, Potassium 3.5, Chloride 97 L, Carbon Dioxide 26, Anion Gap 12.5, BUN 10, Creatinine 0.70, Estimated Creat Clear 127, Estimated GFR 117, Est GFR ( Amer) 142, Glucose 100, Calcium 8.9, Magnesium 1.7, Total Bilirubin 1.3, AST 37, ALT 20, Alkaline Phosphatase 95, Troponin I 0.02, Total Protein 7.4, Albumin 5.1 H, Globulin 2.3, Albumin/Globulin Ratio 2.2 H 01/18/25 06:02: WBC 6.6, RBC 5.23, Hgb 16.0, Hct 46.7, MCV 89.3, MCH 30.6, MCHC 34.3, RDW 13.3, Plt Count 203, MPV 9.3, Neut % (Auto) 91.9 H, Lymph % (Auto) 6.3 L, [place] % (Auto) 1.4 L, Eos % (Auto) 0.0 L, Baso % (Auto) 0.2, Neut # (Auto) 6.0, Lymph # (Auto) 0.4 L, [place] # (Auto) 0.1, Eos # (Auto) 0.0, Baso # (Auto) 0.0, Total Counted 100, Neutrophils % (Manual) 90 H, Band Neutrophils % 2.0, Lymphocytes % (Manual) 8 L, Platelet Estimate Normal, RBC Morphology Normal, Sodium 134 L, Potassium 4.3 D, Chloride 100, Carbon Dioxide 24, Anion Gap 14.3, BUN 11, Creatinine 0.80, Estimated Creat Clear 111, Estimated GFR 100, Est GFR ( Amer) 121, Glucose 158 H D, Calcium 9.9, Troponin I < 0.01, Triglycerides 166 H, Cholesterol 268 H, LDL Cholesterol Direct 175.53 H, VLDL Cholesterol 33, HDL Cholesterol 78 H, Cholesterol/HDL Ratio 3.4 I & O for Last 24 hours: Intake & Output 01/15/25 01/16/25 01/17/25 01/18/25 10:59 11:59 11:59 11:59 Intake Total 240 / 240 Output Total 0 / 0 Balance 240 / 240 Weight 166 lb 6.4 oz Constitutional Constitutional: no acute distress *Routine Respiratory Exam Respiratory: Present CTA bilaterally *Routine Cardiovascular Exam Cardiovascular: Present RRR and murmur; Absent gallop or rubs Meds Home Medications and Allergies Home Medications ?Medication ?Instructions ?Recorded ?Confirmed ?Type albuterol sulfate 2.5 mg/3 mL 2.5 mg inhalation Q6HP PRN 01/18/25 01/18/25 History (0.083 %) solution for nebulization Shortness Of Breath aspirin 81 mg chewable tablet 81 mg PO DAILY 01/18/25 01/18/25 History atorvastatin 80 mg tablet 80 mg PO HS 01/18/25 01/18/25 History buspirone 10 mg tablet 10 mg PO TID 01/18/25 01/18/25 History cetirizine 10 mg tablet (Allergy 10 mg PO DAILY 01/18/25 01/18/25 History Relief (cetirizine)) clopidogrel 75 mg tablet 75 mg PO DAILY 01/18/25 01/18/25 History fluticasone fur. 100 mcg-umeclid 1 inh inhalation DAILY 01/18/25 01/18/25 History 62.5 mcg-vilant 25 mcg inhalat.powder (Trelegy Ellipta) folic acid 1 mg tablet 1 mg PO DAILY 01/18/25 01/18/25 History levothyroxine 100 mcg tablet 100 mcg PO DAILY 01/18/25 01/18/25 History losartan 100 1 tab PO DAILY 01/18/25 01/18/25 History mg-hydrochlorothiazide 12.5 mg tablet metoprolol succinate 25 mg 25 mg PO DAILY 01/18/25 01/18/25 History tablet,extended release 24 hr mirtazapine 15 mg tablet 15 mg PO HS 01/18/25 01/18/25 History montelukast 10 mg tablet 10 mg PO HS 01/18/25 01/18/25 History nicotine 21 mg/24 hr daily 21 mg transdermal DAILY 01/18/25 01/18/25 History transdermal patch pantoprazole 40 mg tablet,delayed 40 mg PO DAILY 01/18/25 01/18/25 History release thiamine HCl (vitamin B1) 100 mg 100 mg PO DAILY 01/18/25 01/18/25 History tablet trazodone 50 mg tablet 50 - 100 mg PO HSP PRN Insomnia 01/18/25 01/18/25 History New Prescriptions to Start Prescriptions: Allergies Allergy/AdvReac Type Severity Reaction Status Date / Time strawberry AdvReac Verified 02/04/20 15:49 Assessment and Plan *Assessment and plan (1) NSTEMI (non-ST elevated myocardial infarction): Status: Acute Category: Medical Code(s): I21.4 - Non-ST elevation (NSTEMI) myocardial infarction (2) Acute exacerbation of chronic obstructive pulmonary disease: Status: Acute Category: Medical Code(s): J44.1 - Chronic obstructive pulmonary disease with (acute) exacerbation (3) History of cocaine use: Status: Acute Category: Medical Code(s): F14.91 - Cocaine use, unspecified, in remission (4) Alcohol dependence: Status: Acute Qualifiers: Complication of substance-induced condition: uncomplicated Substance use status: with intoxication Qualified Code(s): F10.220 - Alcohol dependence with intoxication, uncomplicated Category: Medical Code(s): F10.20 - Alcohol dependence, uncomplicated (5) Hx of CABG: Status: Acute Category: Surgical Code(s): Z95.1 - Presence of aortocoronary bypass graft (6) CAD (coronary artery disease): Status: Acute Qualifiers: Associated angina: with unstable angina Coronary Disease-Associated Artery/Lesion type: unspecified vessel or lesion type [place] vs. transplanted heart: [place] heart Qualified Code(s): I25.110 - Atherosclerotic heart disease of [place] coronary artery with unstable angina pectoris Category: Medical Code(s): I25.10 - Atherosclerotic heart disease of [place] coronary artery without angina pectoris (7) COPD (chronic obstructive pulmonary disease): Status: Acute Qualifiers: COPD type: unspecified COPD Qualified Code(s): J44.9 - Chronic obstructive pulmonary disease, unspecified Category: Medical Code(s): J44.9 - Chronic obstructive pulmonary disease, unspecified Plan 1. CAD with history of bypass in 2023 at [facility] in [place], [place] Presented to outside hospital with chest pain and shortness of breath with reported elevated troponin. Subsequently transferred to our facility for cardiac cath Plan for left heart catheterization with grafts today by right groin access Continue aspirin, statin, isosorbide, losartan/HCTZ, metoprolol 2. History of cocaine use as recently as 2 days ago Cessation recommend 3. History of alcohol use recently as well Cessation recommended 4. Ex-smoker with COPD Continue nicotine patch Pulmonary treatment per Hospitalist Left heart cath with grafts via right femoral access today. Possibly home later this evening pending above results
--- NOTE | 2025-01-18 09:09 | IR_ITS ---
APPROVED REPORT Patient Location: Inpatient Veneer Lathe Operator: Guzman Marquez, RT (R) PROCEDURES Left heart catheterization Left ventriculogram Selective coronary angiogram Selective engagement of the left internal mammary artery to the LAD Selective engagement of the saphenous vein graft to the circumflex artery Selective engagement of the saphenous vein graft to the posterior descending artery INDICATION Non-ST elevation myocardial infarction, Coronary artery disease, Abnormal Myoview, History of coronary bypass surgery Informed consent was obtained prior to the procedure. COMPLICATIONS NONE Estimated Blood Loss: LESS THAN 10 ML TECHNIQUE One percent lidocaine used to anesthetize the right groin. The right femoral artery was accessed via the Seldinger technique and a 5 [place] sheath was placed in the right femoral artery. A JL 4, JR4 catheter were used to perform left heart catheterization, left ventriculogram selective coronary angiography as well as selective engagement of the 2 vein grafts and the left internal mammary artery. At the end of the procedure the patient was transferred to the postop holding area in stable condition for sheath removal. ANGIOGRAPHIC RESULTS The left main artery Normal The left anterior descending artery Is proximally patent and gives rise to 3 spindly sized diagonal arteries The circumflex artery Proximally occluded The right coronary artery Proximally occluded The DIA ventriculogram reveals Preserved 55% The left ventricular end-diastolic pressure Less than 10 mmHg MOE to LAD widely patent Saphenous to posterior descending artery widely patent Saphenous to circumflex artery ostially occluded IMPRESSION No interval change in coronary artery disease since last cardiac catheterization with chronically occluded saphenous vein graft to the circumflex artery Preserved ejection fraction Normal LVEDP PLAN 1. Recommend cessation of illegal drug usage 2. Encourage medical compliance 3. LDL less than 55 to be achieved with high intensity statin 4. Avoidance of tobacco products 5. Risk factor modification Electronically signed by : Magan Chaudhari MD 01/18/2025 15:32:37
[2025-01-18] MEDS: DOXYCYCLINE HYCL 100 MG TABLET PO ×2 (09:44→21:01)
[2025-01-18] MEDS: METHYLPREDNISOLONE SOD SUCC 40MG VIAL 40 MG IV ×2 (09:44→21:01)
--- NOTE | 2025-01-18 10:18 | HMH.PHAINT1 ---
Pharmacy Intervention Comments: MEDICATION RECONCILIATION COMPLETED ON PATIENT USING EXTERNAL FILL HISTORY FROM PHARMACY. -DANIELLA PARIKH, ROCIOD
--- NOTE | 2025-01-18 13:01 | P.DS_ITS ---
General Admission date:: 01/17/25 Discharge date: 01/18/25 HPI HPI HPI: This is a 54-year-old male who has a past medical history significant for coronary artery disease, asthma, COPD, defect, DE, and hypertension who presents from [facility] due to elevated troponins. According to ER provider at [facility], patient presented with a chief complaint of dizziness and his troponin initial value was 122. 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 Patient's case was discussed with on-call home care rn who recommended patient be transferred to [facility] for further management. As result, patient has been admitted for further management. During my evaluation of the patient, patient states he has had no chest pain but has had significant shortness of breath. He mentions that he does have a history of COPD and he has been experiencing wheezing and increased shortness of air for the past 48 hours. Patient states he is prescribed Trelegy to manage and albuterol. Additionally, patient states he has a home nebulizer. None of these interventions will help him with his shortness of breath. Patient is currently prescribed Ranexa, beta-giovani, and statin coupled with dual platelet therapy for known coronary artery disease. Patient does have a history of coronary artery bypass and graft. Patient informed nursing staff that he drinks daily with his last known drink yesterday and he occasionally uses crack cocaine. He is currently denying any chest pain, lightheadedness, dizziness, fever, chills, rigors, nausea, vomiting or diarrhea. He does endorse having some wheezing. Additional pertinent vitals obtained at [facility] include a sodium of 132, chloride of 94, blood glucose 133, and patient's troponin was initially 122 and increased to 126. EKG performed at [facility] showed sinus rhythm, right bundle branch block, QTc of 473, normal axis and no evidence of active STEMI Hospital Course Hospital Course Hospital Course: Patient is a 54-year-old male with past medical history of CAD, hyperlipidemia, alcohol use, hypertension, who presents to the hospital as a transfer from outside facility due to chest pain. According to the patient he had left-sided chest pain, he went to [facility]. He was noted to have elevated troponin. Patient has significant history of CAD, in 2023 had drug-eluting stents to OM and circumflex arteries. Patient mentions he has been compliant with his medications. Patient does endorse alcohol use and cocaine use regularly. Patient was sent to this hospital for further evaluation. Hospital medicine agreed to admit the patient for left heart cath and medical management. Plan of care was as follows: #History of coronary artery disease #History of CABG and stenting #NSTEMI #Hypertension ? Patient presenting with chest pain still complaining of pain this morning. Of note, patient has a history of cocaine use and reports he has continued using. ? Troponin elevated at [facility], negative at our facility. Patient assessment this morning he denies chest pain. ? Patient recently underwent left heart catheterization 12/21/2023 receiving stenting to proximal and mid circumflex as well as first obtuse marginal artery. Reports adherence with medications. ? Cardiology consulted, performed LHC on 01/01/24 showing no stentable occlusions and repeat LHC day of discharge shows again no stentable occlusions. Elevated troponin could be related to alcohol/drug use and demand ischemia. ? Limited ECHO showed LVEF 55% with no regional wall motion abnormalities. ? Chest pain free currently. Vital signs stable. Medically stable for discharge. ? Continue losartan/HCTZ, metoprolol 25 mg daily, isosorbide, atorvastatin 80 mg at bedtime, aspirin 81 mg daily, Plavix 75 mg daily. ? Will follow-up with cardiology within 1 week. ? Educated on cocaine cessation and its cardiovascular risks. #Alcohol and drug abuse #Tobacco use disorder ? Educated patient on smoking cessation, he states that he is trying to stop smoking. Has nicotine patches he uses daily. Currently states he smokes 1 pack every 3 days. ? Patient has a history of cocaine use and reports he has continued using. ? Placed on CIWA protocol, did not require Ativan. ? Counseled on alcohol reduction, and cocaine cessation. #COPD exacerbation ? Patient was also found to be having a COPD exacerbation during admission, patient received DuoNebs every 6 hours scheduled and Pulmicort twice daily. Patient was started on doxycycline and steroids. Patient chest x-ray shows no acute findings. Patient has been stable on room air during admission. Due to patient's comorbidities and lifestyle choices will continue doxycycline for 5- day total and prednisone 40 mg for total of 5 days. Patient should continue with Trelegy inhaler daily and DuoNebs as needed. Continue cetirizine 10 mg daily and Singulair 10 mg at bedtime. Continue home chronic meds of pantoprazole 40 mg daily, nicotine patches for smoking cessation, mirtazapine 15 mg at bedtime, levothyroxine 100 mcg daily, trazodone 50 to 100 mg at bedtime as needed, buspirone 10 mg 3 times daily. Total time spent on discharge 38 minutes in counseling, documentation, chart review, and direct care with patient. Exam Data for Last 24 hours Vital signs and Labs for Last 24 Hours: Temp Pulse Resp BP Pulse Ox O2 Del Method 98.2 F 60 18 129/97 H 100 Room Air 01/18/25 07:27 01/18/25 08:00 01/18/25 07:27 01/18/25 07:27 01/18/25 07:27 01/18/25 11:00 Laboratory Results - last 24 hr 01/17/25 21:34: Sodium 132 L, Potassium 3.5, Chloride 97 L, Carbon Dioxide 26, Anion Gap 12.5, BUN 10, Creatinine 0.70, Estimated Creat Clear 127, Estimated GFR 117, Est GFR ( Amer) 142, Glucose 100, Calcium 8.9, Magnesium 1.7, Total Bilirubin 1.3, AST 37, ALT 20, Alkaline Phosphatase 95, Troponin I 0.02, Total Protein 7.4, Albumin 5.1 H, Globulin 2.3, Albumin/Globulin Ratio 2.2 H 01/18/25 06:02: WBC 6.6, RBC 5.23, Hgb 16.0, Hct 46.7, MCV 89.3, MCH 30.6, MCHC 34.3, RDW 13.3, Plt Count 203, MPV 9.3, Neut % (Auto) 91.9 H, Lymph % (Auto) 6.3 L, [place] % (Auto) 1.4 L, Eos % (Auto) 0.0 L, Baso % (Auto) 0.2, Neut # (Auto) 6.0, Lymph # (Auto) 0.4 L, [place] # (Auto) 0.1, Eos # (Auto) 0.0, Baso # (Auto) 0.0, Total Counted 100, Neutrophils % (Manual) 90 H, Band Neutrophils % 2.0, Lymphocytes % (Manual) 8 L, Platelet Estimate Normal, RBC Morphology Normal, Sodium 134 L, Potassium 4.3 D, Chloride 100, Carbon Dioxide 24, Anion Gap 14.3, BUN 11, Creatinine 0.80, Estimated Creat Clear 111, Estimated GFR 100, Est GFR ( Amer) 121, Glucose 158 H D, Calcium 9.9, Troponin I < 0.01, Triglycerides 166 H, Cholesterol 268 H, LDL Cholesterol Direct 175.53 H, VLDL Cholesterol 33, HDL Cholesterol 78 H, Cholesterol/HDL Ratio 3.4 Temp Pulse Resp BP Pulse Ox O2 Del Method 98 F 110 H 16 142/87 H 100 Room Air 01/01/24 07:46 01/01/24 08:00 01/01/24 07:46 01/01/24 07:46 01/01/24 07:46 01/01/24 09:29 Laboratory Results - last 24 hr 01/01/24 01:00: APTT 26.7 L 01/01/24 03:30: Troponin I 0.17 H 01/01/24 06:13: WBC 11.1 H, RBC 4.10 L, Hgb 13.6 L, Hct 39.1 L, MCV 95.4 H, MCH 33.2 H, MCHC 34.8, RDW 13.1, Plt Count 208, MPV 7.6, Neut % (Auto) 81.1 H, Lymph % (Auto) 13.1, [place] % (Auto) 4.1, Eos % (Auto) 1.1, Baso % (Auto) 0.5, Neut # (Auto) 9.0 H, Lymph # (Auto) 1.5, [place] # (Auto) 0.5, Eos # (Auto) 0.1, Baso # (Auto) 0.1, Sodium 133 L, Potassium 3.1 L, Chloride 95 L, Carbon Dioxide 29, Anion Gap 12.1, BUN 9, Creatinine 0.70, Estimated Creat Clear 122, Estimated GFR 118, Est GFR ( Amer) 142, Glucose 259 H, Calcium 9.0 01/01/24 08:00: APTT 37.8 L, Magnesium 0.8 L 01/01/24 09:40: Troponin I 0.16 H I & O for Last 24 hours: Intake & Output 01/15/25 01/16/25 01/17/25 01/18/25 22:59 23:59 23:59 23:59 Intake Total 240 / 240 Output Total 0 / 0 Balance 0 / 240 240 / 240 Weight 75.523 kg 75.478 kg Intake & Output 12/29/23 12/30/23 12/31/23 01/01/24 23:59 23:59 23:59 23:59 Intake Total 250 / 250 Output Total 0 / 0 Balance 0 / 250 250 / 250 Weight 157 lb 12.8 oz 157 lb 6.561 oz Constitutional Constitutional: no acute distress, average body habitus, chronically ill appearing and cooperative *Routine HEENT Exam Head: Present normocephalic Eye: Present EOMI ENT: Present mucous membranes moist *Routine Neck Exam Neck: Present supple *Routine Respiratory Exam Respiratory: Present wheezes, normal respiratory effort and symmetric chest movement *Routine Cardiovascular Exam Cardiovascular: Present RRR, Normal S1 and Normal S2 *Routine Abdominal Exam Abdominal: Present soft and normoactive bowel sounds; Absent tenderness *Routine Rectal Exam Patient deferred: visual exam *Routine Exam Patient deferred: penile exam *Routine Extremities Exam Extremities: Present full ROM and normal capillary refill; Absent edema *Routine Skin Exam Skin: Present intact, dry and warm *Routine Neurological Exam Neurological: Present alert, oriented X3, vision grossly intact, hearing grossly intact and normal speech Routine Psychiatric Exam Psychiatric: Present normal affect Detailed Neck Exam: Thyroids Thyroid: Absent bruit Results Data Completed and Pending Labs on day of discharge: Labs from last 24 hours 01/18/25 01/17/25 06:02 21:34 WBC 6.6 RBC 5.23 Hgb 16.0 Hct 46.7 MCV 89.3 MCH 30.6 MCHC 34.3 RDW 13.3 Plt Count 203 MPV 9.3 Neut % (Auto) 91.9 H Lymph % (Auto) 6.3 L [place] % (Auto) 1.4 L Eos % (Auto) 0.0 L Baso % (Auto) 0.2 Neut # (Auto) 6.0 Lymph # (Auto) 0.4 L [place] # (Auto) 0.1 Eos # (Auto) 0.0 Baso # (Auto) 0.0 Total Counted 100 Neutrophils % (Manual) 90 H Band Neutrophils % 2.0 Lymphocytes % (Manual) 8 L Platelet Estimate Normal RBC Morphology Normal Sodium 134 L 132 L Potassium 4.3 D 3.5 Chloride 100 97 L Carbon Dioxide 24 26 Anion Gap 14.3 12.5 BUN 11 10 Creatinine 0.80 0.70 Estimated Creat Clear 111 127 Estimated GFR 100 117 Est GFR ( Amer) 121 142 Glucose 158 H D 100 Calcium 9.9 8.9 Magnesium 1.7 Total Bilirubin 1.3 AST 37 ALT 20 Alkaline Phosphatase 95 Troponin I < 0.01 0.02 Total Protein 7.4 Albumin 5.1 H Globulin 2.3 Albumin/Globulin Ratio 2.2 H Triglycerides 166 H Cholesterol 268 H LDL Cholesterol Direct 175.53 H VLDL Cholesterol 33 HDL Cholesterol 78 H Cholesterol/HDL Ratio 3.4 DS: Diagnosis Discharge Diagnosis (1) NSTEMI (non-ST elevated myocardial infarction): Status: Acute Code(s): I21.4 - Non-ST elevation (NSTEMI) myocardial infarction (2) Acute exacerbation of chronic obstructive pulmonary disease: Status: Acute Code(s): J44.1 - Chronic obstructive pulmonary disease with (acute) exacerbation (3) History of cocaine use: Status: Acute Code(s): F14.91 - Cocaine use, unspecified, in remission (4) Alcohol dependence: Status: Acute Code(s): F10.20 - Alcohol dependence, uncomplicated Qualifiers: Complication of substance-induced condition: uncomplicated Substance use status: with intoxication Qualified Code(s): F10.220 - Alcohol dependence with intoxication, uncomplicated (5) Hx of CABG: Status: Acute Code(s): Z95.1 - Presence of aortocoronary bypass graft (6) CAD (coronary artery disease): Status: Acute Code(s): I25.10 - Atherosclerotic heart disease of [place] coronary artery without angina pectoris Qualifiers: Associated angina: with unstable angina Coronary Disease-Associated Artery/Lesion type: unspecified vessel or lesion type [place] vs. transplanted heart: [place] heart Qualified Code(s): I25.110 - Atherosclerotic heart disease of [place] coronary artery with unstable angina pectoris (7) COPD (chronic obstructive pulmonary disease): Status: Acute Code(s): J44.9 - Chronic obstructive pulmonary disease, unspecified Qualifiers: COPD type: unspecified COPD Qualified Code(s): J44.9 - Chronic obstructive pulmonary disease, unspecified Meds Home Medications and Allergies Home Medications ?Medication ?Instructions ?Recorded ?Confirmed ?Type albuterol sulfate 2.5 mg/3 mL 2.5 mg inhalation Q6HP P RN 01/18/25 01/18/25 History (0.083 %) solution for nebulization Shortness Of Breat h aspirin 81 mg chewable tablet 81 mg PO DAILY 01/18/25 01/18/25 History atorvastatin 80 mg tablet 80 mg PO HS 01/18/25 5 History buspirone 10 mg tablet 10 mg PO TID 01/18/25 History cetirizine 10 mg tablet (Allergy 10 mg PO DAILY 01/18/25 History Relief (cetirizine)) clopidogrel 75 mg tablet 75 mg PO DAILY 01/18/2508/07 History doxycycline hyclate 100 mg tablet 100 mg PO BID 3 days #6 tabs 01/18/25 Rx fluticasone fur. 100 mcg-umeclid 1 inh inhalation LORRAINE Y 01/18/25 01/18/25 History 62.5 mcg-vilant 25 mcg inhalat.powder (Trelegy Ellipta) folic acid 1 mg tablet 1 mg PO DAILY 01/18/2501/18 History levothyroxine 100 mcg tablet 100 mcg PO DAILY 01/18/25 01/18/25 History losartan 100 1 tab PO DAILY 01/18/2508/07 History mg-hydrochlorothiazide 12.5 mg tablet metoprolol succinate 25 mg 25 mg PO DAILY 01/18/2508/07 History tablet,extended release 24 hr mirtazapine 15 mg tablet 15 mg PO HS 01/18/25 5 History montelukast 10 mg tablet 10 mg PO HS 01/18/25 5 History nicotine 21 mg/24 hr daily 21 mg transdermal DAILY 08/0701/18/25 History transdermal patch pantoprazole 40 mg tablet,delayed 40 mg PO DAILY 01/1801/18/25 History release prednisone 20 mg tablet 40 mg (2 x 20 mg) PO DAILY # 6 tabs 01/18/25 Rx thiamine HCl (vitamin B1) 100 mg 100 mg PO DAILY 01/1801/18/25 History tablet trazodone 50 mg tablet 50 - 100 mg PO HSP PRN Insom lionel 01/18/25 01/18/25 History New Prescriptions to Start Prescriptions: doxycycline hyclate Crystal Flores prednisone Crystal Flores Allergies Allergy/AdvReac Type Severity Reaction Status Date / Time strawberry AdvReac Verified 02/04/20 15:49 Discharge Plan Disposition Patient Disposition: Home, Self-Care Condition: Good Follow up Plan Follow up with: Stevie Mercer PA [Physician Fire Extinguisher Inspector, Cardiology] - 01/25/25 10:15 am Paula Coats APRN [Referring, Medical] - 01/25/25 11:30 am Prescriptions/Medication Reconciliation: New doxycycline hyclate 100 mg Tablet 100 mg PO BID 3 Days Qty: 6 0RF prednisone 20 mg tablet 40 mg PO DAILY Qty: 6 0RF Continued atorvastatin 80 mg tablet 80 mg PO HS albuterol sulfate 2.5 mg /3 mL (0.083 %) solution for nebulization 2.5 mg inhalation Q6HP PRN (Reason: Shortness Of Breath) Patient Comments: INHALE ONE vial in NEBULIZER EVERY 6 HOURS NEEDED trazodone 50 mg tablet 50 - 100 mg PO HSP PRN (Reason: Insomnia) Patient Comments: Take 1 to 2 tablets by mouth at bedtime as needed cetirizine [Allergy Relief (cetirizine)] 10 mg tablet 10 mg PO DAILY Patient Comments: Take one by mouth once daily thiamine HCl (vitamin B1) 100 mg tablet 100 mg PO DAILY Patient Comments: Take one tablet once daily clopidogrel 75 mg tablet 75 mg PO DAILY Patient Comments: take one by mouth daily levothyroxine 100 mcg tablet 100 mcg PO DAILY Patient Comments: Take 1 tablet by mouth Daily. pantoprazole 40 mg tablet,delayed release (DR/EC) 40 mg PO DAILY Patient Comments: Take 1 tablet by mouth Daily. buspirone 10 mg tablet 10 mg PO TID Patient Comments: Take 1 by mouth three times daily nicotine 21 mg/24 hr patch 24 hour 21 mg transdermal DAILY Patient Comments: Apply 1 film daily to skin aspirin 81 mg tablet,chewable 81 mg PO DAILY Patient Comments: Chew 1 tablet Daily. chew and swallow folic acid 1 mg tablet 1 mg PO DAILY Patient Comments: Take one by mouth daily montelukast 10 mg tablet 10 mg PO HS mirtazapine 15 mg tablet 15 mg PO HS Patient Comments: Take one by mouth at bedtime metoprolol succinate 25 mg tablet extended release 24 hr 25 mg PO DAILY Patient Comments: Take 1 tablet by mouth Daily. losartan-hydrochlorothiazide 100-12.5 mg tablet 1 tab PO DAILY Patient Comments: Take 1 tablet by mouth Daily. Trelegy Ellipta 100-62.5-25 mcg blister with device 1 inh INHALATION DAILY Patient Comments: Inhale 1 puff Daily. Problem Reconciliation Problems Reviewed?: Yes Patient Discharge Instructions ACTIVITY: Limited activity DIET: continue same diet and cardiac Print Language: Indonesian Providers Primary Care Provider: Provider,Referral Admit Provider: Eros Fam Attending Provider: Eros Fam
[2025-01-18] MEDS: BUDESONIDE 0.5MG/2ML NEB 0.5 MG IH ×2 (13:03→17:51)
[2025-01-18] MEDS: LIDOCAINE 1% 10ML MDV 10 ML IJ (14:53)
[2025-01-18] MEDS: 0.9 % SODIUM CHLORIDE 500 ML 999 ML IV (14:53)
[2025-01-18] MEDS: HEPARIN 1,000 UNITS/500ML NS (CATH LAB) 3000 UNIT IV (14:53)
[2025-01-18] MEDS: FENTANYL 100MCG/2ML VIAL 50 MCG IV (15:23)
[2025-01-18] MEDS: MIDAZOLAM HCL 1MG/ML 5ML VIAL 1 MG IV (15:23)
--- NOTE | 2025-01-18 17:42 | PEERSUPPORT ---
Peer Support Note Patient Information Patient Information: DOS: 01/17/2025 Pt asleep following heart cath procedure sedation, did not wake up. Ps left contact card and treatment referral option in room to be informed by Eros SCHWAB to be expecting a phone call from ps if he is discharged today. Plan of action: Ps will follow up on 01/18/2025 accordingly.
--- NOTE | 2025-01-18 18:49 | PC.NURSE ---
aox4, still drowsy from heart cath today. r femoral approach no stents placed. tolerating room air.
[2025-01-18] MEDS: MONTELUKAST SODIUM 10MG TAB 10 MG PO (21:01)
[2025-01-19] VITALS (9 sets, daily range): BP systolic 131–166; BP diastolic 72–87; PULSE 70–104; RESP 14–18; TEMP 36.5–36.9; O2SAT 95–100; BMI 26.9
[2025-01-19] MEDS: IPRATROPIUM/ALBUTEROL 3 ML NEB IH ×2 (05:56→11:03)
[2025-01-19] MEDS: BUDESONIDE 0.5MG/2ML NEB 0.5 MG IH (05:56)
[2025-01-19 06:19] LABS: Hematocrit 42.7 % (42.0-52.0); Hemoglobin 14.5 g/dL (14.1-18.0); Immature Granulocytes % 0.6 %; Mean Corpuscular HGB Conc 34.0 g/dL (31.8-35.4); Mean Corpuscular Hemoglobin 31.0 pg (27.0-31.2); Mean Corpuscular Volume 91.4 fl (80-94); Nucleated Red Blood Cells % 0 %; Platelet Count 204 K/mm3 (142-424); Red Blood Count 4.67 M/mm3 (4.60-6.20); Red Cell Distribution Width-SD 45.8 fL; White Blood Count 12.6 K/mm3 (4.8-10.8)
--- NOTE | 2025-01-19 06:25 | PC.NURSE ---
patient has done well tonight. right fem site dsg c/d/i. vss
[2025-01-19 06:33] LABS: Anion Gap 13.1 mEq/L (5-15); Blood Urea Nitrogen 18 mg/dl (9-20); Calcium 9.2 mg/dl (8.4-10.2); Carbon Dioxide 23 mmol/L (22.0-30.0); Chloride 102 mmol/L (98-107); Creatinine Clearance Estimated 115 mL/min (50-200); Creatinine,Serum 0.80 mg/dl (0.66-1.25); Estimated Glomerular Filt Rate 100 ml/min (>60); GFR (African American) 121 ML/MIN (>60); Glucose 140 mg/dl (74-100); Potassium 4.1 mmoL/L (3.5-5.1); Sodium 134 mmol/L (136-145)
--- NOTE | 2025-01-19 08:40 | EXP.CARD.PN ---
Subjective Subjective Date: 01/19/25 Time: 08:41 Principal diagnosis: Chest pain/non-STEMI Interval history: 54-year-old white male in bed in no acute distress. Right groin area examined with no evidence of pseudoaneurysm or bleeding. Patient states he feels back to baseline and is ready go home. Exam Data for Last 24 hours Vital signs and Labs for Last 24 Hours: Temp Pulse Resp BP Pulse Ox O2 Del Method 97.7 F 70 18 163/82 H 98 Room Air 01/19/25 07:57 01/19/25 07:57 01/19/25 07:57 01/19/25 07:57 01/19/25 07:57 01/19/25 07:57 Laboratory Results - last 24 hr 01/19/25 05:18: WBC 12.6 H D, RBC 4.67, Hgb 14.5, Hct 42.7, MCV 91.4, MCH 31.0, MCHC 34.0, RDW 13.6, Plt Count 204, MPV 9.9, Neut % (Auto) 90.2 H, Lymph % (Auto) 4.8 L, [place] % (Auto) 4.3, Eos % (Auto) 0.0 L, Baso % (Auto) 0.1, Neut # (Auto) 11.4 H, Lymph # (Auto) 0.6 L, [place] # (Auto) 0.5, Eos # (Auto) 0.0, Baso # (Auto) 0.0, Sodium 134 L, Potassium 4.1, Chloride 102, Carbon Dioxide 23, Anion Gap 13.1, BUN 18 D, Creatinine 0.80, Estimated Creat Clear 115, Estimated GFR 100, Est GFR ( Amer) 121, Glucose 140 H, Calcium 9.2 I & O for Last 24 hours: Intake & Output 01/16/25 01/17/25 01/18/25 01/19/25 11:59 11:59 11:59 11:59 Intake Total 240 / 240 1100 / 1100 Output Total 0 / 0 0 / 0 Balance 240 / 240 1100 / 1100 Weight 166 lb 6.4 oz 171 lb 4.8 oz Constitutional Constitutional: no acute distress *Routine Respiratory Exam Respiratory: Present CTA bilaterally *Routine Cardiovascular Exam Cardiovascular: Present RRR; Absent murmur, gallop or rubs *Routine Extremities Exam Extremities: Absent edema Progress Note: A&P Assessment and plan (1) NSTEMI (non-ST elevated myocardial infarction): Status: Acute (2) Acute exacerbation of chronic obstructive pulmonary disease: Status: Acute (3) History of cocaine use: Status: Acute (4) Alcohol dependence: Status: Acute (5) Hx of CABG: Status: Acute (6) CAD (coronary artery disease): Status: Acute (7) COPD (chronic obstructive pulmonary disease): Status: Acute Assessment and Plan Assessment and Plan for All Diagnoses:: 1. CAD with history of bypass in 2023 at [facility] in [place], [place] -Presented to outside hospital with chest pain and shortness of breath with reported elevated troponin. Subsequently transferred to our facility for cardiac cath - LHC yesterday showed patent MOE to LAD and SVG to PDA. Chronic occlusion of SVG to circumflex artery. No change compared to 2023 study. -Continue aspirin, statin, isosorbide, losartan/HCTZ, metoprolol 2. History of cocaine use as recently as 2 days ago -Cessation recommend 3. History of alcohol use recently as well -Cessation recommended 4. Ex-smoker with COPD -Continue nicotine patch 5. Hyperlipidemia -LDL 175 this admission -Reportedly on statin therapy Stable from a cardiac standpoint for discharge home Home medication recommendations: Discontinue Plavix Continue aspirin 81 mg daily Atorvastatin 80 mg daily Losartan HCTZ 100/12.5 mg daily Metoprolol XL 25 mg daily Nicotine patches as prescribed Pantoprazole 40 mg daily Follow-up with his regular health and wellness coordinator Dr. Coats in 1 to 2 weeks
[2025-01-19] MEDS: DOXYCYCLINE HYCL 100 MG TABLET PO (09:45)
--- NOTE | 2025-01-19 10:00 | PC.NURSE ---
Dee Dee called for transportation
[2025-01-19] MEDS: IOPAMIDOL-370 (76%);100ML BOTTLE 50 ML IV (11:12)
--- NOTE | 2025-02-01 22:06 | PC.NURSE ---
medical records sent to [facility]
== END 2025-01-19 16:20 | disposition home or self-care (01) ==
PROVIDERS: Internal Medicine; Nurse Practitioner Family; Admitting Provider Student in an Organized Health Care Education/Training Program; Visit Provider Student in an Organized Health Care Education/Training Program
PROC: 4A023N7 Measurement of Cardiac Sampling and Pressure, Left Heart, Percutaneous Approach (ICD-10-PCS; CPT 93452; principal; 2025-01-18 12:55)
DX: I21.4 Non-ST elevation (NSTEMI) myocardial infarction (principal); I25.110 Atherosclerotic heart disease of native coronary artery with unstable angina pectoris; R93.1 Abnormal findings on diagnostic imaging of heart and coronary circulation; J44.1 Chronic obstructive pulmonary disease with (acute) exacerbation; F14.91 Cocaine use, unspecified, in remission; F10.220 Alcohol dependence with intoxication, uncomplicated; Z95.1 Presence of aortocoronary bypass graft; Z95.5 Presence of coronary angioplasty implant and graft; F17.210 Nicotine dependence, cigarettes, uncomplicated; Z79.02 Long term (current) use of antithrombotics/antiplatelets; Z79.82 Long term (current) use of aspirin; Z79.890 Hormone replacement therapy; Z79.51 Long term (current) use of inhaled steroids; Z79.899 Other long term (current) drug therapy
CPT/HCPCS: 36415; 71045; 80048; 80053; 80061; 83735; 84484; 85007; 85025; 85027; 93005; 93306; 93459; 94640; 99152; C1725; C1760; C1769; C1894; G0378; J1200; J1644; J1650; J2003; J2250; J2919; J3010; J7040; Q9967

== ENCOUNTER 2025-02-02 00:37 | Observation (INO) | payer OTHER, SELFPAY ==
[2025-02-02] VITALS (8 sets, daily range): BP systolic 128–142; BP diastolic 74–85; PULSE 63–90; RESP 16–20; TEMP 36.4–37.2; O2SAT 95–98; BMI 25.2
--- NOTE | 2025-02-02 01:48 | P.HP_ITS ---
<Statement entered by Eros Fam MD - 02/06/25 11:08> Agree with plan of care as outlined by the [facility]. History of Present Illness *Admission Date: 02/02/25 *Reason for visit:: NSTEMI *History of present illness: This is a 54-year-old male who is well-known to our service line who has a past medical history significant for coronary artery disease, asthma, COPD, defect, [place], and hypertension who presents from [facility] due to elevated troponins. ER provider at [facility], patient presented to their facility due to increased wheezing. Initially, patient was thought to have a COPD exacerbation. However, delta troponin was obtained and it was elevated significantly at 3392. 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 As a result of these recommendations, patient was transition to [facility] for further management. During my evaluation of the patient, patient states he started to experience wheezing 2 hours prior to presenting to [facility]. 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 He underwent left heart cath on previous admission on December 18 and the recommendation was to minimize drug usage, increase medical compliance, and recommend an LDL of 55. There was no cardiac stenting performed-according to the report his grafts were patent and there was no significant stenosis that required any coronary artery intervention. Patient is currently denying any chest pain and reports his w heezing is better, lightheadedness, dizziness, fever, chills, rigors, PND, orthopnea, nausea, vomiting, or diarrhea. Additional pertinent vitals obtained at [facility] include a negative urine drug screen, hematocrit of 38, and his initial troponin was 3390 2 repeat was 3404. CTA of the chest was negative for any pulmonary embolism. Patient was given therapeutic dosing of Lovenox prior to leaving [facility] and aspirin. EKG obtained from [facility] revealed a sinus rhythm, left bundle branch block, QTc of 430, normal axis, and biphasic T in the lateral-negative for STEMI. [facility] Disclaimer: The information contained in this section may have been updated after the patient was seen, as this information can be updated by other users. Medical History Amputation of arm, right Emphysema with chronic bronchitis Asthma Myocardial infarction Hypertension COPD (chronic obstructive pulmonary disease) Surgical History History of heart artery stent History of open heart surgery History of right heart catheterization (RHC) Social History (Updated 02/02/25 @ 01:13 by Chela Cooper RN) Smoking Status: Current every day smoker tobacco type: cigarettes packs per day: 1 pack-years: 37 and e-cigarettes smoking status start date: 1985 years smoked: 38 quit status: not considering quitting alcohol intake: current alcohol intake frequency: 3 or more drinks per day current occupational status: employed and other Travel in the last 8 weeks?: None household members: other housing: other Have you lived/traveled outside US in past 30 days?: No Contact w/someone who lives/traveled outside US past 30 days?: No Exposure to someone with infectious disease in past 14 days?: No Do you have a fever (greater than 100.4 F or 38 C)?: No Have you tested positive for COVID-19?: No Exposed to someone with COVID-19 in past 14 days?: No Do you have a sore throat?: No Do you have a cough?: No Do you have any weakness?: No Do you have any diarrhea?: No Are you experiencing any unusual bleeding?: No Do you have any muscle aches/pain?: No Do you have any abdominal pain?: No Are you experiencing loss of taste or smell?: No Other Medical History Have you received the Flu Vaccine for this season: Yes Have you received the Pneumonia Vaccine: Yes Review of Systems Review of Systems Review of systems:: pertinent systems reviewed and negative unless documented below Constitutional Constitutional: Reports system reviewed and no additional complaints, except as documented Eyes Eyes: Reports system reviewed and no additional complaints, except as documented ENT Ears, Nose, Mouth, and Throat: Reports system reviewed and no additional complaints, except as documented *Cardiovascular Cardiovascular: Reports system reviewed and no additional complaints, except as documented *Respiratory Respiratory: Reports wheezing *Gastrointestinal Gastrointestinal: Reports system reviewed and no additional complaints, except as documented *Genitourinary Genitourinary: Reports system reviewed and no additional complaints, except as documented *Musculoskeletal Musculoskeletal: Reports deformity Integumentary/Breasts Skin/Breast: Reports system reviewed and no additional complaints, except as documented *Neurologic Neurologic: Reports system reviewed and no additional complaints, except as documented Psychiatric Psychiatric: Reports system reviewed and no additional complaints, except as documented Endocrine Endocrine: Reports system reviewed and no additional complaints, except as documented Hematologic/Lymphatic Hematologic/Lymphatic: Reports system reviewed and no additional complaints, except as documented Allergic/Immunologic Allergic/Immunologic: Reports wheezing Meds Home Medications and Allergies Home Medications ?Medication ?Instructions ?Recorded ?Confirmed ?Type albuterol sulfate 2.5 mg/3 mL 2.5 mg inhalation Q6HP P RN 01/18/25 01/18/25 History (0.083 %) solution for nebulization Shortness Of Breat h aspirin 81 mg chewable tablet 81 mg PO DAILY 01/18/25 01/18/25 History atorvastatin 80 mg tablet 80 mg PO HS 01/18/25 5 History buspirone 10 mg tablet 10 mg PO TID 01/18/25 History cetirizine 10 mg tablet (Allergy 10 mg PO DAILY 01/18/25 History Relief (cetirizine)) doxycycline hyclate 100 mg tablet 100 mg PO BID 3 days #6 tabs 01/18/25 Rx fluticasone fur. 100 mcg-umeclid 1 inh inhalation LORRAINE Y 01/18/25 01/18/25 History 62.5 mcg-vilant 25 mcg inhalat.powder (Trelegy Ellipta) folic acid 1 mg tablet 1 mg PO DAILY 01/18/2501/18 History levothyroxine 100 mcg tablet 100 mcg PO DAILY 01/18/25 01/18/25 History losartan 100 1 tab PO DAILY 01/18/2508/07 History mg-hydrochlorothiazide 12.5 mg tablet metoprolol succinate 25 mg 25 mg PO DAILY 01/18/2508/07 History tablet,extended release 24 hr mirtazapine 15 mg tablet 15 mg PO HS 01/18/25 5 History montelukast 10 mg tablet 10 mg PO HS 01/18/25 5 History nicotine 21 mg/24 hr daily 21 mg transdermal DAILY 08/0701/18/25 History transdermal patch pantoprazole 40 mg tablet,delayed 40 mg PO DAILY 01/1801/18/25 History release prednisone 20 mg tablet 40 mg (2 x 20 mg) PO DAILY # 6 tabs 01/18/25 Rx thiamine HCl (vitamin B1) 100 mg 100 mg PO DAILY 01/1801/18/25 History tablet trazodone 50 mg tablet 50 - 100 mg PO HSP PRN Insom lionel 01/18/25 01/18/25 History New Prescriptions to Start Prescriptions: Allergies Allergy/AdvReac Type Severity Reaction Status Date / Time strawberry AdvReac Verified 02/04/20 15:49 Exam Data for Last 24 hours Vital signs and Labs for Last 24 Hours: Temp Pulse Resp BP Pulse Ox O2 Del Method 98.1 F 80 20 137/76 95 Room Air 02/02/25 01:00 02/02/25 01:00 02/02/25 01:00 02/02/25 01:00 02/02/25 01:00 02/02/25 01:00 I & O for Last 24 hours: Intake & Output 01/30/25 01/31/25 02/01/25 02/02/25 23:59 23:59 23:59 23:59 Weight 73.074 kg Constitutional Constitutional: no acute distress and cooperative *Routine HEENT Exam Head: Present normocephalic and atraumatic Eye: Present EOMI and PERRL ENT: Present mucous membranes moist and mucous membranes dry *Routine Neck Exam Neck: Present supple, full ROM and trachea midline *Routine Respiratory Exam Respiratory: Present diminished air movement, normal respiratory effort, able to speak in complete sentences and symmetric chest movement *Routine Cardiovascular Exam Cardiovascular: Present RRR, Normal S1 and Normal S2 *Routine Abdominal Exam Abdominal: Present soft and normoactive bowel sounds *Routine Rectal Exam Rectal:: deferred *Routine Genitalia Exam Genitalia:: deferred *Routine Extremities Exam Extremities: Present normal capillary refill Routine Back/Spine/Pelvis Exam Back/Spine: Present full ROM *Routine Skin Exam Skin: Present intact, dry and warm *Routine Neurological Exam Neurological: Present alert, oriented X3, CN II-XII intact and moving all extremities Routine Psychiatric Exam Psychiatric: Present normal affect, normal thought process, cooperative, good insight and good judgment H&P: Result Impressions 54-year-old male who has known coronary artery disease status post coronary artery bypass and graft with recent left heart cath performed on 01/18/2025 that was nonrevealing for any significant coronary artery disease and did not require any stenting presents with an elevated troponin concerning for NSTEMI Assessment and Plan *Assessment and plan (1) NSTEMI (non-ST elevated myocardial infarction): Status: Acute Category: Medical Code(s): I21.4 - Non-ST elevation (NSTEMI) myocardial infarction Plan Assessment: NSTEMI - Patient did receive therapeutic weight-based Lovenox while at [facility] that should cover him for the next 12 hours until evaluated by interventional cardiology - Patient's last 2D echo was performed on prior admission and it showed normal b iventricular function with an EF of 55% - Will obtain EKG - Continue to trend troponin every 6 hours - Will consider limited 2D echo - Concerning that elevation in troponin may be due to pulmonary injury - Patient is without any chest pain - Patient may benefit from pulmonary functions test Plan: Admit patient to the MedSurg unit on telemetry Activity as tolerated Saline lock Vital signs every 4 hours Consult cardiology Consult case management Cardiac diet CBC/CMP daily Magnesium in a.m. Will continue 40 mg of Lovenox subcu daily DuoNebs every 6 hours as needed shortness of breath 2 mg morphine IV push every 4 hours. Severe pain 21 mg nicotine patch daily 4 mg Zofran IV push every 8 hours for nausea vomit Full code I will discuss this case with attending physician Dr. Fam and I look forward to more input
--- NOTE | 2025-02-02 02:06 | ECG_ITS ---
APPROVED REPORT Exam: Resting ECG HR:75 bpm ECG Measurements Heart Rate 75 AXES FL 163 P 70 QRSd 158 QRS 111 QT 409 T 83 QTc 438 Conclusion SINUS RHYTHM POSSIBLE LEFT ATRIAL ENLARGEMENT [-0.1mV P-WAVE IN V1/V2] RIGHT BUNDLE BRANCH BLOCK [120+ ms QRS DURATION, UPRIGHT V1, 40+ ms S IN I/aVL/V4/V5/V6] LEFT POSTERIOR FASCICULAR BLOCK [QRS AXIS > 109, INFERIOR Q] MODERATE T-WAVE ABNORMALITY, CONSIDER LATERAL ISCHEMIA [-0.1+ mV T-WAVE IN I/aVL/V5/V6] ABNORMAL ECG UNCONFIRMED REPORT Electronically signed by : Jc Al MD 02/02/2025 08:25:30
--- NOTE | 2025-02-02 06:10 | PC.NURSE ---
Pt. was seen in [facility] ED last night for c/o shortness of breath and wheezing. Pt. had a couple of Neb treatments and labs revealed elevated troponin levels. Pt. denies any chest pain or pressure. Pt. was transferred to [facility] med/surg and admitted with NSTEMI and COPD exacerbation. Pt. was on Med /surg around 3 weeks ago with an NSTEMI and had a heart cath at that time. Pt states he is still smiking and was cutting grass when he became more Short of breath and had audible wheezing. His home NEb tx did not help. Pt. resting quietly and comfortable. Personal items and call tomlinson in reach. Bed in low and locked position. Safety measures in place.
[2025-02-02 06:15] LABS: Hematocrit 37.9 % (42.0-52.0); Hemoglobin 13.4 g/dL (14.1-18.0); Immature Granulocytes % 0.3 %; Mean Corpuscular HGB Conc 35.4 g/dL (31.8-35.4); Mean Corpuscular Hemoglobin 32.1 pg (27.0-31.2); Mean Corpuscular Volume 90.9 fl (80-94); Nucleated Red Blood Cells % 0 %; Platelet Count 210 K/mm3 (142-424); Red Blood Count 4.17 M/mm3 (4.60-6.20); Red Cell Distribution Width-SD 42.1 fL; White Blood Count 3.9 K/mm3 (4.8-10.8)
[2025-02-02 06:30] LABS: Alanine Aminotransferase 36 U/L (12-78); Albumin Level 4.5 g/dl (3.5-5.0); Albumin/Globulin Ratio 1.9 (1.1-1.8); Alkaline Phosphatase 156 U/L (38-126); Anion Gap 12.4 mEq/L (5-15); Aspartate Amino Transferase 42 U/L (17-59); Bilirubin,Total 0.4 mg/dl (0.2-1.3); Blood Urea Nitrogen 7 mg/dl (9-20); Calcium 9.4 mg/dl (8.4-10.2); Carbon Dioxide 21 mmol/L (22.0-30.0); Chloride 101 mmol/L (98-107); Creatinine Clearance Estimated 108 mL/min (50-200); Creatinine,Serum 0.80 mg/dl (0.66-1.25); Estimated Glomerular Filt Rate 100 ml/min (>60); GFR (African American) 121 ML/MIN (>60); Globulin 2.4 g/dL (1.3-3.2); Glucose 227 mg/dl (74-100); Magnesium 1.7 mg/dl (1.6-2.3); Potassium 4.4 mmoL/L (3.5-5.1); Sodium 130 mmol/L (136-145); Total Protein,Serum 6.9 g/dl (6.3-8.2)
[2025-02-02 06:41] LABS: Troponin I 0.12 ng/ml (0.00-0.034)
--- NOTE | 2025-02-02 08:34 | HMH.PHAINT1 ---
Pharmacy Intervention Comments: HOME MEDICATION LIST VERIFIED USING LIST FROM OUTPATIENT PHARMACY
[2025-02-02 08:52] LABS: RBC Morphology Normal; Total Cells Counted 100
[2025-02-02] MEDS: ASPIRIN 81MG CHEWABLE TABLET 81 MG PO (09:16)
[2025-02-02] MEDS: RANOLAZINE 500MG ER TABLET 500 MG PO (09:17)
[2025-02-02] MEDS: IRBESARTAN 150MG TAB 150 MG PO (09:17)
[2025-02-02] MEDS: PANTOPRAZOLE 40MG TABLET 40 MG PO (09:17)
[2025-02-02] MEDS: BUSPIRONE HCL 10 MG TABLET PO (09:17)
[2025-02-02] MEDS: LORATADINE 10MG TABLET 10 MG PO (09:17)
[2025-02-02] MEDS: CLOPIDOGREL 75MG TAB 75 MG PO (09:17)
[2025-02-02] MEDS: LEVOTHYROXINE 100MCG (0.1MG) TAB 100 MCG PO (09:17)
[2025-02-02] MEDS: METOPROLOL SUCCINATE XL 25MG TABLET 12.5 MG PO (09:18)
[2025-02-02] MEDS: FLUTICASONE/UMECLIDIN/VILANTER 100/62.5/25MCG INHALER 1 PUFF IH (09:27)
--- NOTE | 2025-02-02 09:33 | EXP.PULM.CON ---
History of Present Illness History of present illness: Mr. Mercedes is a 54-year-old male with reported history of CAD asthma COPD hypertension presented to the ER with worsening respiratory distress elevated troponins and pulmonary was called for further evaluation and management. Cardiology following. Afebrile. Hemodynamically stable. Noted to have leukopenia. [facility] Disclaimer: The information contained in this section may have been updated after the patient was seen, as this information can be updated by other users. Medical History (Updated 02/02/25 @ 10:52 by Facundo Vasquez MD) Asthma exacerbation Amputation of arm, right Emphysema with chronic bronchitis Asthma Myocardial infarction Hypertension COPD (chronic obstructive pulmonary disease) Surgical History History of heart artery stent History of open heart surgery History of right heart catheterization (RHC) Social History (Updated 02/02/25 @ 01:13 by Chela Cooper RN) Smoking Status: Current every day smoker tobacco type: cigarettes packs per day: 1 pack-years: 37 and e-cigarettes smoking status start date: 1985 years smoked: 38 quit status: not considering quitting alcohol intake: current alcohol intake frequency: 3 or more drinks per day current occupational status: employed and other Travel in the last 8 weeks?: None household members: other housing: other Have you lived/traveled outside US in past 30 days?: No Contact w/someone who lives/traveled outside US past 30 days?: No Exposure to someone with infectious disease in past 14 days?: No Do you have a fever (greater than 100.4 F or 38 C)?: No Have you tested positive for COVID-19?: No Exposed to someone with COVID-19 in past 14 days?: No Do you have a sore throat?: No Do you have a cough?: No Do you have any weakness?: No Do you have any diarrhea?: No Are you experiencing any unusual bleeding?: No Do you have any muscle aches/pain?: No Do you have any abdominal pain?: No Are you experiencing loss of taste or smell?: No Review of Systems Constitutional Constitutional: Reports anorexia, Reports body ache(s) and Reports fatigue Eyes Eyes: Denies eye discharge, Denies dry eyes, Denies irritation and Denies itchy eyes ENT Ears, Nose, Mouth, and Throat: Denies epistaxis, Denies facial pain, Denies lip swelling and Denies throat swelling *Cardiovascular Cardiovascular: Reports chest pain, Reports dyspnea and Reports dyspnea on exertion *Respiratory Respiratory: Denies change in phlegm color, Reports chest congestion, Reports cough, Reports dyspnea, Reports dyspnea on exertion, Denies excessive phlegm production and Reports wheezing *Gastrointestinal Gastrointestinal: Denies abdominal pain, Denies belching and Denies cramping *Musculoskeletal Musculoskeletal: Reports back pain, Reports myalgias and Reports other (No small joint swelling or Pain) *Neurologic Neurologic: Reports system reviewed and no additional complaints, except as documented Psychiatric Psychiatric: Denies homicidal ideation and Denies suicidal ideation Endocrine Endocrine: Reports fatigue and Denies heat intolerance Hematologic/Lymphatic Hematologic/Lymphatic: Denies easy bleeding and Denies lymphadenopathy Allergic/Immunologic Allergic/Immunologic: Denies itchy eyes, Denies lip swelling, Denies throat swelling and Reports wheezing Pulmonology Exam Inpatient Vital signs and Labs for Last 24 Hours: Temp Pulse Resp BP Pulse Ox O2 Del Method 97.6 F 70 16 141/74 H 96 Room Air 02/02/25 08:00 02/02/25 08:00 02/02/25 08:00 02/02/25 08:00 02/02/25 09:28 02/02/25 09:28 Laboratory Results - last 24 hr 02/02/25 06:04: WBC 3.9 L, RBC 4.17 L, Hgb 13.4 L, Hct 37.9 L, MCV 90.9, MCH 32.1 H, MCHC 35.4, RDW 12.7, Plt Count 210, MPV 9.0, Neut % (Auto) 86.7 H, Lymph % (Auto) 10.3, [place] % (Auto) 2.1, Eos % (Auto) 0.3, Baso % (Auto) 0.3, Neut # (Auto) 3.4, Lymph # (Auto) 0.4 L, [place] # (Auto) 0.1, Eos # (Auto) 0.0, Baso # (Auto) 0.0, Total Counted 100, Neutrophils % (Manual) 86 H, Lymphocytes % (Manual) 12, Monocytes % (Manual) 2, Platelet Estimate Normal, RBC Morphology Normal, Sodium 130 L, Potassium 4.4, Chloride 101, Carbon Dioxide 21 L, Anion Gap 12.4, BUN 7 L, Creatinine 0.80, Estimated Creat Clear 108, Estimated GFR 100, Est GFR ( Amer) 121, Glucose 227 H, Calcium 9.4, Magnesium 1.7, Total Bilirubin 0.4, AST 42, ALT 36, Alkaline Phosphatase 156 H, Troponin I 0.12 H, Total Protein 6.9, Albumin 4.5, Globulin 2.4, Albumin/Globulin Ratio 1.9 H I & O for Labs for Last 24 Hours: Intake & Output 01/30/25 01/31/25 02/01/25 02/02/25 23:59 23:59 23:59 23:59 Intake Total 240 / 240 Output Total 325 / 325 Balance -85 / -85 Weight 161 lb 1.609 oz Constitutional: Present mild distress Head: Present normocephalic and atraumatic ENT: Present normal exam, normal oropharynx and mucous membranes moist Neck: Present normal inspection and full ROM Respiratory: Present normal respiratory effort and able to speak in complete sentences; Absent prolonged expiratory phase, respiratory distress, wheezes or diminished air movement Cardiac: Present S1/S2, Tachycardia and radial pulses present GI: Present soft and distention; Absent tenderness or guarding Skin: Present intact; Absent cyanosis or jaundice Neuro: Present alert, awake and oriented x 3 Extremities: Present normal inspection; Absent clubbing or cyanosis Psychiatric: Present normal affect and cooperative Meds Home Medications and Allergies Home Medications ?Medication ?Instructions ?Recorded ?Confirmed ?Type albuterol sulfate 2.5 mg/3 mL 2.5 mg inhalation Q6HP PRN 01/18/25 02/02/25 History (0.083 %) solution for nebulization Shortness Of Breath aspirin 81 mg chewable tablet 81 mg PO DAILY 01/18/25 02/02/25 History atorvastatin 80 mg tablet 80 mg PO HS 01/18/25 02/02/25 History buspirone 10 mg tablet 10 mg PO TID 01/18/25 02/02/25 History cetirizine 10 mg tablet (Allergy 10 mg PO DAILY 01/18/25 02/02/25 History Relief (cetirizine)) fluticasone fur. 100 mcg-umeclid 1 inh inhalation DAILY 01/18/25 02/02/25 History 62.5 mcg-vilant 25 mcg inhalat.powder (Trelegy Ellipta) folic acid 1 mg tablet 1 mg PO DAILY 01/18/25 02/02/25 History levothyroxine 100 mcg tablet 100 mcg PO DAILY 01/18/25 02/02/25 History losartan 100 1 tab PO DAILY 100/12.5MG 01/18/25 02/02/25 History mg-hydrochlorothiazide 12.5 mg tablet metoprolol succinate 25 mg 12.5 mg PO BID 01/18/25 02/02/25 History tablet,extended release 24 hr mirtazapine 15 mg tablet 15 mg PO HS 01/18/25 02/02/25 History montelukast 10 mg tablet 10 mg PO HS 01/18/25 02/02/25 History nicotine 21 mg/24 hr daily 21 mg transdermal DAILY 01/18/25 02/02/25 History transdermal patch pantoprazole 40 mg tablet,delayed 40 mg PO DAILY 01/18/25 02/02/25 History release thiamine HCl (vitamin B1) 100 mg 100 mg PO DAILY 01/18/25 02/02/25 History tablet trazodone 50 mg tablet 50 - 100 mg PO HSP PRN Insomnia 01/18/25 02/02/25 History albuterol sulfate 90 mcg/actuation 2 puff inhalation Q4H PRN wheezing 02/02/25 02/02/25 History aerosol inhaler (Ventolin HFA) clopidogrel 75 mg tablet 75 mg PO DAILY 02/02/25 02/02/25 History magnesium oxide 400 mg (241.3 mg 400 mg PO DAILY 02/02/25 02/02/25 History magnesium) tablet nitroglycerin 0.3 mg sublingual 1 mg sublingual DIRECTED 02/02/25 02/02/25 History tablet ranolazine 500 mg tablet,extended 500 mg PO BID 02/02/25 02/02/25 History release,12 hr New Prescriptions to Start Prescriptions: Allergies Allergy/AdvReac Type Severity Reaction Status Date / Time strawberry AdvReac Verified 02/04/20 15:49 Results Laboratory Findings 02/02/25 06:04 02/02/25 06:04 Abnormal lab findings: Abnormal Labs 02/02/25 06:04 WBC 3.9 L RBC 4.17 L Hgb 13.4 L Hct 37.9 L MCH 32.1 H Neut % (Auto) 86.7 H Lymph # (Auto) 0.4 L Neutrophils % (Manual) 86 H Sodium 130 L Carbon Dioxide 21 L BUN 7 L Glucose 227 H Alkaline Phosphatase 156 H Troponin I 0.12 H Albumin/Globulin Ratio 1.9 H Assessment and Plan *Assessment and plan (1) Asthma exacerbation: Status: Acute Category: Medical Code(s): J45.901 - Unspecified asthma with (acute) exacerbation Plan Mr. Mercedes is a 54-year-old male with reported history of CAD asthma COPD hypertension presented to the ER with worsening respiratory distress elevated troponins and pulmonary was called for further evaluation and management. Cardiology following. Afebrile. Hemodynamically stable. Noted to have leukopenia. Patient being managed for NSTEMI at this point of time. CTA PE protocol upon admission no dense consolidative/airspace Noted. No significant emphysematous changes noted . No evidence of pulmonary embolism. Current smoker greater than [id number] smoking history. Currently on Trelegy 100 inhaler, suboptimal symptom control needing his rescue inhaler 1-2 times a day secondary to wheezing and shortness with improvement in symptoms after using Trelegy 100 inhaler symptoms are likely from allergen exposure. Concern for overlap syndrome. Plan: Initiate Trelegy 200 inhaler. Inhaler technique will be provided today Albuterol/DuoNebs 4 times daily as needed No need for antibiotics from pulmonary standpoint Prednisone 40 mg daily x 5 days # Thank you for involving pulmonary in this patient care. Follow patient in pulmonary clinic as an outpatient basis in 1 to 2 weeks
--- NOTE | 2025-02-02 09:39 | EXP.CARD.CON ---
History of Present Illness History of Present Illness Consult date: 02/02/25 Requesting physician: Eros Fam Chief complaint: Wheezing and soa History of present illness: Derrick Mercedes is a 54-year-old white female with past medical history of coronary artery disease status post CABG 2022, asthma, and COPD who presented to [facility] from [facility] due to elevated troponins. Patient reports he was in his usual state of health when yesterday he developed wheezing and increased shortness of breath after cutting grass all day which prompted him to go to the emergency department. Patient reports he felt like he does when he has a COPD/asthma exacerbation. Labs were drawn at [facility] which showed an elevated troponin of 3392 prompting transferred to [facility] for further evaluation. Patient reports that he was given neb treatments which did help with the symptoms and this morning he denies any chest pain, shortness of breath or wheezing. Troponin at this facility was 0.12. CTA chest at [facility] was negative for PE. Creatinine is 0.8. Of note patient had a medical management heart cath at this facility January 18, 2025. EKG upon presentation was negative for STEMI. [facility] Disclaimer: The information contained in this section may have been updated after the patient was seen, as this information can be updated by other users. Medical History Amputation of arm, right Emphysema with chronic bronchitis Asthma Myocardial infarction Hypertension COPD (chronic obstructive pulmonary disease) Surgical History History of heart artery stent History of open heart surgery History of right heart catheterization (RHC) Social History (Updated 02/02/25 @ 01:13 by Chela Cooper RN) Smoking Status: Current every day smoker tobacco type: cigarettes packs per day: 1 pack-years: 37 and e-cigarettes smoking status start date: 1985 years smoked: 38 quit status: not considering quitting alcohol intake: current alcohol intake frequency: 3 or more drinks per day current occupational status: employed and other Travel in the last 8 weeks?: None household members: other housing: other Have you lived/traveled outside US in past 30 days?: No Contact w/someone who lives/traveled outside US past 30 days?: No Exposure to someone with infectious disease in past 14 days?: No Do you have a fever (greater than 100.4 F or 38 C)?: No Have you tested positive for COVID-19?: No Exposed to someone with COVID-19 in past 14 days?: No Do you have a sore throat?: No Do you have a cough?: No Do you have any weakness?: No Do you have any diarrhea?: No Are you experiencing any unusual bleeding?: No Do you have any muscle aches/pain?: No Do you have any abdominal pain?: No Are you experiencing loss of taste or smell?: No Review of Systems Review of Systems Review of systems:: pertinent systems reviewed and negative unless documented below *Cardiovascular Cardiovascular: Denies chest pain and Reports dyspnea *Respiratory Respiratory: Reports dyspnea and Reports wheezing *Neurologic Neurologic: Reports system reviewed and no additional complaints, except as documented Allergic/Immunologic Allergic/Immunologic: Reports wheezing Exam Data for Last 24 hours Vital signs and Labs for Last 24 Hours: Temp Pulse Resp BP Pulse Ox O2 Del Method 97.6 F 70 16 141/74 H 96 Room Air 02/02/25 08:00 02/02/25 08:00 02/02/25 08:00 02/02/25 08:00 02/02/25 09:28 02/02/25 09:28 Laboratory Results - last 24 hr 02/02/25 06:04: WBC 3.9 L, RBC 4.17 L, Hgb 13.4 L, Hct 37.9 L, MCV 90.9, MCH 32.1 H, MCHC 35.4, RDW 12.7, Plt Count 210, MPV 9.0, Neut % (Auto) 86.7 H, Lymph % (Auto) 10.3, [place] % (Auto) 2.1, Eos % (Auto) 0.3, Baso % (Auto) 0.3, Neut # (Auto) 3.4, Lymph # (Auto) 0.4 L, [place] # (Auto) 0.1, Eos # (Auto) 0.0, Baso # (Auto) 0.0, Total Counted 100, Neutrophils % (Manual) 86 H, Lymphocytes % (Manual) 12, Monocytes % (Manual) 2, Platelet Estimate Normal, RBC Morphology Normal, Sodium 130 L, Potassium 4.4, Chloride 101, Carbon Dioxide 21 L, Anion Gap 12.4, BUN 7 L, Creatinine 0.80, Estimated Creat Clear 108, Estimated GFR 100, Est GFR ( Amer) 121, Glucose 227 H, Calcium 9.4, Magnesium 1.7, Total Bilirubin 0.4, AST 42, ALT 36, Alkaline Phosphatase 156 H, Troponin I 0.12 H, Total Protein 6.9, Albumin 4.5, Globulin 2.4, Albumin/Globulin Ratio 1.9 H I & O for Last 24 hours: Intake & Output 01/30/25 01/31/25 02/01/25 02/02/25 23:59 23:59 23:59 23:59 Intake Total 240 / 240 Output Total 325 / 325 Balance -85 / -85 Weight 161 lb 1.609 oz Constitutional Constitutional: no acute distress *Routine Respiratory Exam Respiratory: Present CTA bilaterally and symmetric chest movement *Routine Cardiovascular Exam Cardiovascular: Present RRR, Normal S1 and Normal S2 *Routine Abdominal Exam Abdominal: Present soft and normoactive bowel sounds; Absent tenderness *Routine Extremities Exam Extremities: Present full ROM and normal capillary refill; Absent edema *Routine Skin Exam Skin: Present intact, dry and warm Detailed Neck Exam: Thyroids Thyroid: Absent bruit Meds Home Medications and Allergies Home Medications ?Medication ?Instructions ?Recorded ?Confirmed ?Type albuterol sulfate 2.5 mg/3 mL 2.5 mg inhalation Q6HP PRN 01/18/25 02/02/25 History (0.083 %) solution for nebulization Shortness Of Breath aspirin 81 mg chewable tablet 81 mg PO DAILY 01/18/25 02/02/25 History atorvastatin 80 mg tablet 80 mg PO HS 01/18/25 02/02/25 History buspirone 10 mg tablet 10 mg PO TID 01/18/25 02/02/25 History cetirizine 10 mg tablet (Allergy 10 mg PO DAILY 01/18/25 02/02/25 History Relief (cetirizine)) fluticasone fur. 100 mcg-umeclid 1 inh inhalation DAILY 01/18/25 02/02/25 History 62.5 mcg-vilant 25 mcg inhalat.powder (Trelegy Ellipta) folic acid 1 mg tablet 1 mg PO DAILY 01/18/25 02/02/25 History levothyroxine 100 mcg tablet 100 mcg PO DAILY 01/18/25 02/02/25 History losartan 100 1 tab PO DAILY 100/12.5MG 01/18/25 02/02/25 History mg-hydrochlorothiazide 12.5 mg tablet metoprolol succinate 25 mg 12.5 mg PO BID 01/18/25 02/02/25 History tablet,extended release 24 hr mirtazapine 15 mg tablet 15 mg PO HS 01/18/25 02/02/25 History montelukast 10 mg tablet 10 mg PO HS 01/18/25 02/02/25 History nicotine 21 mg/24 hr daily 21 mg transdermal DAILY 01/18/25 02/02/25 History transdermal patch pantoprazole 40 mg tablet,delayed 40 mg PO DAILY 01/18/25 02/02/25 History release thiamine HCl (vitamin B1) 100 mg 100 mg PO DAILY 01/18/25 02/02/25 History tablet trazodone 50 mg tablet 50 - 100 mg PO HSP PRN Insomnia 01/18/25 02/02/25 History albuterol sulfate 90 mcg/actuation 2 puff inhalation Q4H PRN wheezing 02/02/25 02/02/25 History aerosol inhaler (Ventolin HFA) clopidogrel 75 mg tablet 75 mg PO DAILY 02/02/25 02/02/25 History magnesium oxide 400 mg (241.3 mg 400 mg PO DAILY 02/02/25 02/02/25 History magnesium) tablet nitroglycerin 0.3 mg sublingual 1 mg sublingual DIRECTED 02/02/25 02/02/25 History tablet ranolazine 500 mg tablet,extended 500 mg PO BID 02/02/25 02/02/25 History release,12 hr New Prescriptions to Start Prescriptions: Allergies Allergy/AdvReac Type Severity Reaction Status Date / Time strawberry AdvReac Verified 02/04/20 15:49 Assessment and Plan *Assessment and plan (1) NSTEMI (non-ST elevated myocardial infarction): Status: Acute Category: Medical Code(s): I21.4 - Non-ST elevation (NSTEMI) myocardial infarction (2) Acute exacerbation of chronic obstructive pulmonary disease: Status: Acute Category: Medical Code(s): J44.1 - Chronic obstructive pulmonary disease with (acute) exacerbation (3) CAD (coronary artery disease): Status: Acute Qualifiers: Associated angina: with unstable angina Coronary Disease-Associated Artery/Lesion type: unspecified vessel or lesion type [place] vs. transplanted heart: [place] heart Qualified Code(s): I25.110 - Atherosclerotic heart disease of [place] coronary artery with unstable angina pectoris Category: Medical Code(s): I25.10 - Atherosclerotic heart disease of [place] coronary artery without angina pectoris (4) Hx of CABG: Status: Acute Category: Surgical Code(s): Z95.1 - Presence of aortocoronary bypass graft Plan History of coronary artery disease History of CABG 2022 Acute myocardial injury Troponin 0.12 in the setting of acute COPD/asthma exacerbation that started after cutting grass Medical management heart cath noted 01/18/2025 Patient denies chest pain during episode. He reports symptoms improved with neb treatment. EKG negative for STEMI Echo 01/18/2025: Normal LV systolic function, mild RV dilation with borderline reduction in RV function. No significant valvular stenosis or regurg noted Plan for intervention today. Elevated troponin likely secondary to acute asthma/COPD exacerbation. Recommend pulmonology consult CV summary %: Patient is CV stable. Recommend patient continues with the below listed medications and follows up with cardiology clinic next week for reevaluation. Cardiology will sign off. Cardiac meds for discharge: Aspirin 81 mg p.o. daily Atorvastatin 80 mg p.o. daily Plavix 75 mg p.o. daily Losartan/hydrochlorothiazide 100/12.5 mg p.o. daily Metoprolol succinate ER 12.5 mg p.o. twice daily Ranolazine 500 mg p.o. twice daily
--- NOTE | 2025-02-02 10:59 | P.DS_ITS ---
<Statement entered by Eros Fam MD - 02/06/25 11:07> Agree with plan of care as outlined by the SERVICE LOSS CONTROL CONSULTANT. General Admission date:: 02/02/25 HPI HPI HPI: This is a 54-year-old male who is well-known to our service line who has a past medical history significant for coronary artery disease, asthma, COPD, defect, IA, and hypertension who presents from [facility] due to elevated troponins. ER provider at [facility], patient presented to their facility due to increased wheezing. Initially, patient was thought to have a COPD exacerbation. However, delta troponin was obtained and it was elevated significantly at 3392. Patient's acquisitions librarian was contacted and recommended patient be transferred to [facility] for further management. As a result of these recommendations, patient was transition to [facility] for further management. During my evaluation of the patient, patient states he started to experience wheezing 2 hours prior to presenting to [facility]. 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 He underwent left heart cath on previous admission on December 18 and the recommendation was to minimize drug usage, increase medical compliance, and recommend an LDL of 55. There was no cardiac stenting performed-according to the report his grafts were patent and there was no significant stenosis that required any coronary artery intervention. Patient is currently denying any chest pain and reports his wheezing is better, lightheadedness, dizziness, fever, chills, rigors, PND, orthopnea, nausea, vomiting, or diarrhea. Additional pertinent vitals obtained at [facility] include a negative urine drug screen, hematocrit of 38, and his initial troponin was 3390 2 repeat was 3404. CTA of the chest was negative for any pulmonary embolism. Patient was given therapeutic dosing of Lovenox prior to leaving [facility] and aspirin. EKG obtained from [facility] revealed a sinus rhythm, left bundle branch block, QTc of 430, normal axis, and biphasic T in the lateral-negative for STEMI. Hospital Course Hospital Course Hospital Course: Mr. Mercedes is a 54-year-old male with a primary medical history of CAD, hyperlipidemia, alcohol use, drug use, hypertension who presented from [facility] due to shortness of breath and wheezing. He states he had been cutting the grass and began to feel short of breath, chest tightness and wheezing noted. Workup at [facility] was significant for elevated troponin. Patient was transferred to our facility at which time workup revealed an elevated troponin of 0.12. Patient denied chest pain. Patient recently underwent cardiac cath on 01/18/2025 patent arteries with no stentable occlusions. Elevated troponin upon admission likely NSTEMI, type II related to COPD exacerbation. Patient had echo during last admission which showed normal EF of 55%. During admission patient was given DuoNebs every 6 hours as needed for shortness of breath, resumed Trelegy inhaler daily. Consulted pulmonology and cardiology for further recommendations. Patient was assessed by pulmonology who recommends increasing Trelegy inhaler from 100-200 daily, continue DuoNebs 4 times daily as needed, a prednisone course of 40 mg daily x 5 days. He was also assessed by cardiology who states troponin elevated likely due to acute COPD exacerbation. Patient continues to deny chest pain. Cardiac meds at discharge include: Aspirin 81 mg daily, atorvastatin 80 mg daily, Plavix 75 mg daily, losartan/HCTZ 100/12.5 mg daily, metoprolol succinate 12.5 mg twice daily, ranolazine 500 mg twice daily. Discussed medication compliance with patient who states he is compliant with all medications. Patient does have a history of alcohol and drug use, specifically cocaine. Patient had negative UDS at [facility], denies recent alcohol or cocaine use. Does endorse tobacco use daily, encouraged smoking cessation. Additional lab work substantial for sodium of 130, WBC 3.9, hemoglobin 13.4. Upon discharge patient denies shortness of breath, lungs CTA. Patient will follow-up with pulmonology and cardiology in the outpatient setting. Exam Data for Last 24 hours Vital signs and Labs for Last 24 Hours: Temp Pulse Resp BP Pulse Ox O2 Del Method 97.6 F 70 16 141/74 H 96 Room Air 02/02/25 08:00 02/02/25 08:00 02/02/25 08:00 02/02/25 08:00 02/02/25 09:28 02/02/25 09:28 Laboratory Results - last 24 hr 02/02/25 06:04: WBC 3.9 L, RBC 4.17 L, Hgb 13.4 L, Hct 37.9 L, MCV 90.9, MCH 32.1 H, MCHC 35.4, RDW 12.7, Plt Count 210, MPV 9.0, Neut % (Auto) 86.7 H, Lymph % (Auto) 10.3, [place] % (Auto) 2.1, Eos % (Auto) 0.3, Baso % (Auto) 0.3, Neut # (Auto) 3.4, Lymph # (Auto) 0.4 L, [place] # (Auto) 0.1, Eos # (Auto) 0.0, Baso # (Auto) 0.0, Total Counted 100, Neutrophils % (Manual) 86 H, Lymphocytes % (Manual) 12, Monocytes % (Manual) 2, Platelet Estimate Normal, RBC Morphology Normal, Sodium 130 L, Potassium 4.4, Chloride 101, Carbon Dioxide 21 L, Anion Gap 12.4, BUN 7 L, Creatinine 0.80, Estimated Creat Clear 108, Estimated GFR 100, Est GFR ( Amer) 121, Glucose 227 H, Calcium 9.4, Magnesium 1.7, Total Bilirubin 0.4, AST 42, ALT 36, Alkaline Phosphatase 156 H, Troponin I 0.12 H, Total Protein 6.9, Albumin 4.5, Globulin 2.4, Albumin/Globulin Ratio 1.9 H I & O for Last 24 hours: Intake & Output 01/30/25 01/31/25 02/01/25 02/02/25 23:59 23:59 23:59 23:59 Intake Total 240 / 240 Output Total 325 / 325 Balance -85 / -85 Weight 73.074 kg Results Data Completed and Pending Labs on day of discharge: Labs from last 24 hours 02/02/25 06:04 WBC 3.9 L RBC 4.17 L Hgb 13.4 L Hct 37.9 L MCV 90.9 MCH 32.1 H MCHC 35.4 RDW 12.7 Plt Count 210 MPV 9.0 Neut % (Auto) 86.7 H Lymph % (Auto) 10.3 [place] % (Auto) 2.1 Eos % (Auto) 0.3 Baso % (Auto) 0.3 Neut # (Auto) 3.4 Lymph # (Auto) 0.4 L [place] # (Auto) 0.1 Eos # (Auto) 0.0 Baso # (Auto) 0.0 Total Counted 100 Neutrophils % (Manual) 86 H Lymphocytes % (Manual) 12 Monocytes % (Manual) 2 Platelet Estimate Normal RBC Morphology Normal Sodium 130 L Potassium 4.4 Chloride 101 Carbon Dioxide 21 L Anion Gap 12.4 BUN 7 L Creatinine 0.80 Estimated Creat Clear 108 Estimated GFR 100 Est GFR ( Amer) 121 Glucose 227 H Calcium 9.4 Magnesium 1.7 Total Bilirubin 0.4 AST 42 ALT 36 Alkaline Phosphatase 156 H Troponin I 0.12 H Total Protein 6.9 Albumin 4.5 Globulin 2.4 Albumin/Globulin Ratio 1.9 H DS: Diagnosis Discharge Diagnosis (1) Asthma exacerbation: Status: Acute Code(s): J45.901 - Unspecified asthma with (acute) exacerbation (2) COPD exacerbation: Status: Acute Code(s): J44.1 - Chronic obstructive pulmonary disease with (acute) exacerbation (3) Acute exacerbation of chronic obstructive pulmonary disease: Status: Acute Code(s): J44.1 - Chronic obstructive pulmonary disease with (acute) exacerbation (4) NSTEMI (non-ST elevated myocardial infarction): Status: Acute Code(s): I21.4 - Non-ST elevation (NSTEMI) myocardial infarction (5) History of cocaine use: Status: Acute Code(s): F14.91 - Cocaine use, unspecified, in remission (6) Alcohol dependence: Status: Acute Code(s): F10.20 - Alcohol dependence, uncomplicated Qualifiers: Complication of substance-induced condition: uncomplicated Substance use status: with intoxication Qualified Code(s): F10.220 - Alcohol dependence with intoxication, uncomplicated (7) Hx of CABG: Status: Acute Code(s): Z95.1 - Presence of aortocoronary bypass graft (8) CAD (coronary artery disease): Status: Acute Code(s): I25.10 - Atherosclerotic heart disease of [place] coronary artery without angina pectoris Qualifiers: Associated angina: with unstable angina Coronary Disease-Associated Artery/Lesion type: unspecified vessel or lesion type [place] vs. transplanted heart: [place] heart Qualified Code(s): I25.110 - Atherosclerotic heart disease of [place] coronary artery with unstable angina pectoris Meds Home Medications and Allergies Home Medications ?Medication ?Instructions ?Recorded ?Confirmed ?Type albuterol sulfate 2.5 mg/3 mL 2.5 mg inhalation Q6HP P RN 01/18/25 02/02/25 History (0.083 %) solution for nebulization Shortness Of Breat h aspirin 81 mg chewable tablet 81 mg PO DAILY 01/18/25 02/02/25 History atorvastatin 80 mg tablet 80 mg PO HS 01/18/25 5 History buspirone 10 mg tablet 10 mg PO TID 01/18/25 History cetirizine 10 mg tablet (Allergy 10 mg PO DAILY 02/02/25 History Relief (cetirizine)) folic acid 1 mg tablet 1 mg PO DAILY 01/18/2502/02 History levothyroxine 100 mcg tablet 100 mcg PO DAILY 01/18/25 02/02/25 History losartan 100 1 tab PO DAILY 100/12.5MG 02/02/25 History mg-hydrochlorothiazide 12.5 mg tablet metoprolol succinate 25 mg 12.5 mg PO BID 01/18/25 History tablet,extended release 24 hr mirtazapine 15 mg tablet 15 mg PO HS 01/18/25 5 History montelukast 10 mg tablet 10 mg PO HS 01/18/25 5 History nicotine 21 mg/24 hr daily 21 mg transdermal DAILY 08/0702/02/25 History transdermal patch pantoprazole 40 mg tablet,delayed 40 mg PO DAILY 01/1802/02/25 History release thiamine HCl (vitamin B1) 100 mg 100 mg PO DAILY 01/1802/02/25 History tablet trazodone 50 mg tablet 50 - 100 mg PO HSP PRN Insom lionel 01/18/25 02/02/25 History albuterol sulfate 90 mcg/actuation 2 puff inhalation Q 4H PRN wheezing 02/02/25 02/02/25 History aerosol inhaler (Ventolin HFA) clopidogrel 75 mg tablet 75 mg PO DAILY 02/02/2501/15 History fluticasone fur. 200 mcg-umeclid 1 inh inhalation LORRAINE Y #60 ea 02/02/25 Rx 62.5 mcg-vilant 25 mcg inhalat.powder (Trelegy Ellipta) magnesium oxide 400 mg (241.3 mg 400 mg PO DAILY 02/0202/02/25 History magnesium) tablet nitroglycerin 0.3 mg sublingual 1 mg sublingual DIR ECTED 02/02/25 02/02/25 History tablet prednisone 20 mg tablet 40 mg (2 x 20 mg) PO DAILY 4 days 02/02/25 Rx #8 tabs ranolazine 500 mg tablet,extended 500 mg PO BID 02/02/25 History release,12 hr New Prescriptions to Start Prescriptions: [id number] [Trelegy Ellipta] Crystal Flores prednisone Crystal Flores Allergies Allergy/AdvReac Type Severity Reaction Status Date / Time strawberry AdvReac Verified 02/04/20 15:49 Discharge Plan Disposition Patient Disposition: Home, Self-Care Condition: Good Follow up Plan Follow up with: Vivi Mercer APRN [Nurse Practitioner, Cardiology] - Enter time for follow up Provider,MD Kenroy [Primary Care Provider, Medical] - Enter time for follow up Facundo Vasquez MD [Physician, Pulmonology] - Enter time for follow up Prescriptions/Medication Reconciliation: New Trelegy Ellipta 200-62.5-25 mcg Blister With Device 1 inh inhalation DAILY Qty: 60 0RF prednisone 20 mg Tablet 40 mg PO DAILY 4 Days Qty: 8 0RF Continued atorvastatin 80 mg tablet 80 mg PO HS albuterol sulfate 2.5 mg /3 mL (0.083 %) solution for nebulization 2.5 mg inhalation Q6HP PRN (Reason: Shortness Of Breath) Patient Comments: INHALE ONE vial in NEBULIZER EVERY 6 HOURS NEEDED trazodone 50 mg tablet 50 - 100 mg PO HSP PRN (Reason: Insomnia) Patient Comments: Take 1 to 2 tablets by mouth at bedtime as needed cetirizine [Allergy Relief (cetirizine)] 10 mg tablet 10 mg PO DAILY Patient Comments: Take one by mouth once daily thiamine HCl (vitamin B1) 100 mg tablet 100 mg PO DAILY Patient Comments: Take one tablet once daily levothyroxine 100 mcg tablet 100 mcg PO DAILY Patient Comments: Take 1 tablet by mouth Daily. pantoprazole 40 mg tablet,delayed release (DR/EC) 40 mg PO DAILY Patient Comments: Take 1 tablet by mouth Daily. buspirone 10 mg tablet 10 mg PO TID Patient Comments: Take 1 by mouth three times daily nicotine 21 mg/24 hr patch 24 hour 21 mg transdermal DAILY Patient Comments: Apply 1 film daily to skin aspirin 81 mg tablet,chewable 81 mg PO DAILY Patient Comments: Chew 1 tablet Daily. chew and swallow folic acid 1 mg tablet 1 mg PO DAILY Patient Comments: Take one by mouth daily montelukast 10 mg tablet 10 mg PO HS mirtazapine 15 mg tablet 15 mg PO HS Patient Comments: Take one by mouth at bedtime metoprolol succinate 25 mg tablet extended release 24 hr 12.5 mg PO BID Patient Comments: Take 1 tablet by mouth Daily. losartan-hydrochlorothiazide 100-12.5 mg tablet 1 tab PO DAILY Patient Comments: Take 1 tablet by mouth Daily. albuterol sulfate [Ventolin HFA] 90 mcg/actuation HFA aerosol inhaler 2 puff inhalation Q4H PRN (Reason: wheezing) nitroglycerin 0.3 mg tablet, sublingual 1 mg sublingual DIRECTED clopidogrel 75 mg tablet 75 mg PO DAILY magnesium oxide 400 mg (241.3 mg magnesium) tablet 400 mg PO DAILY ranolazine 500 mg tablet extended release 12 hr 500 mg PO BID Discontinued Trelegy Ellipta 100-62.5-25 mcg blister with device 1 inh INHALATION DAILY Patient Comments: Inhale 1 puff Daily. Problem Reconciliation Problems Reviewed?: Yes Patient Discharge Instructions ACTIVITY: Continue current activity DIET: continue same diet Print Language: Moroccan Providers Primary Care Provider: Provider,Referral Admit Provider: Eros Fam Attending Provider: Eros Fam
[2025-02-02] MEDS: IPRATROPIUM/ALBUTEROL 3 ML NEB IH (11:27)
== END 2025-02-02 12:57 | disposition home or self-care (01) ==
PROVIDERS: Nurse Practitioner Family; Admitting Provider Student in an Organized Health Care Education/Training Program; Visit Provider Student in an Organized Health Care Education/Training Program
DX: J45.901 Unspecified asthma with (acute) exacerbation (principal); J44.1 Chronic obstructive pulmonary disease with (acute) exacerbation; I21.4 Non-ST elevation (NSTEMI) myocardial infarction; F14.91 Cocaine use, unspecified, in remission; F10.220 Alcohol dependence with intoxication, uncomplicated; Z95.1 Presence of aortocoronary bypass graft; Z79.899 Other long term (current) drug therapy; Z79.82 Long term (current) use of aspirin; Z79.890 Hormone replacement therapy; Z79.02 Long term (current) use of antithrombotics/antiplatelets; Z91.018 Allergy to other foods; Z89.201 Acquired absence of right upper limb, unspecified level; F17.210 Nicotine dependence, cigarettes, uncomplicated; J43.9 Emphysema, unspecified; Z95.5 Presence of coronary angioplasty implant and graft; I45.2 Bifascicular block; I25.2 Old myocardial infarction; I25.10 Atherosclerotic heart disease of native coronary artery without angina pectoris; I10 Essential (primary) hypertension
CPT/HCPCS: 36415; 80053; 83735; 84484; 85007; 85025; 85027; 93005; 94640; 96372; G0378